=== PATIENT | female | born 1960 | race Caucasian/White ===

== ENCOUNTER 2022-09-09 09:00 | Outpatient (OUT) | payer OTHER, SELFPAY ==
[2022-09-09 09:15] LABS: Basophils Percent Auto 0.7 % (0.2-2.0); Eosinophils Absolute Auto 0.1 10^3/uL (0.0-0.7); Eosinophils Percent Auto 2.5 % (0.9-7.0); Hematocrit 38.3 % (36.0-48.0); Hemoglobin 12.9 g/dL (12.0-16.0); Immature Granulocytes Abs Auto 0.01 10^3/uL (0.00-0.03); Immature Granulocytes Pct Auto 0.2 % (0.0-0.5); Lymphocytes Absolute Auto 1.6 10^3/uL (1.2-3.8); Lymphocytes Percent Auto 36.1 % (20.5-60.0); Mean Corpuscular HGB Conc 33.7 g/dL (29.9-35.2); Mean Corpuscular Hemoglobin 31.9 pg (26.7-34.0); Mean Corpuscular Volume 94.6 fL (81.0-99.0); Mean Platelet Volume 9.5 fL (9.5-13.5); Monocytes Absolute Auto 0.3 10^3/uL (0.3-0.8); Monocytes Percent Auto 7.6 % (1.7-12.0); Neutrophils Absolute Auto 2.3 10^3/uL (1.4-6.5); Neutrophils Percent Auto 52.9 % (43.0-75.0); Platelet Count 287 10^3/uL (150-450); Red Blood Count 4.05 10^6/uL (4.20-5.40); White Blood Count 4.4 10^3/uL (4.0-11.0)
[2022-09-09 23:44] LABS: Alanine Aminotransferase 33 U/L (14-59); Albumin Globulin Ratio 1.3; Albumin Level 3.8 g/dL (3.4-5.0); Alkaline Phosphatase 59 U/L (46-116); Anion Gap 13.5; Aspartate Amino Transferase 14 U/L (15-37); BUN Creatinine Ratio 24.7; Bilirubin Total 0.4 mg/dL (0.2-1.0); Calcium 9.3 mg/dL (8.5-10.1); Carbon Dioxide 24.6 mmol/L (21.0-32.0); Chloride 106 mmol/L (98-107); Chol HDL Ratio 3.5; Cholesterol 213 mg/dL (<=200); Estimated GFR (African America >60 (>=60); Estimated GFR (Non-African Ame >60 (>=60); Glucose 101 mg/dL (74-106); HDL Cholesterol 61 mg/dL (40-60); Potassium 4.1 mmol/L (3.5-5.1); Sodium 140 mmol/L (136-145); Thyroid Stimulating Hormone 1.239 uIU/mL (0.358-3.740); Total Protein 6.8 g/dL (6.4-8.2); Triglycerides 107 mg/dL (<=150); VLDL CHOLESTEROL 21.4 mg/dL
== END 2022-09-09 09:01 ==
DX: E78.5 Hyperlipidemia, unspecified (principal); E03.9 Hypothyroidism, unspecified
CPT/HCPCS: 36415; 80053; 80061; 84443; 85025

== ENCOUNTER 2023-01-01 08:15 | Outpatient (OUT) | payer OTHER, SELFPAY ==
[2023-01-01 09:54] LABS: Alanine Aminotransferase 34 U/L (14-59); Albumin Globulin Ratio 1.2; Alkaline Phosphatase 68 U/L (46-116); Anion Gap 10.8; Aspartate Amino Transferase 14 U/L (15-37); BUN Creatinine Ratio 19.8; Bilirubin Total 0.6 mg/dL (0.2-1.0); Calcium 9.1 mg/dL (8.5-10.1); Carbon Dioxide 30.1 mmol/L (21.0-32.0); Chloride 104 mmol/L (98-107); Chol HDL Ratio 2.8; Cholesterol 185 mg/dL (<=200); Estimated GFR (African America >60 (>=60); Estimated GFR (Non-African Ame >60 (>=60); Globulin 3.3 g/dL; Glucose 92 mg/dL (74-106); HDL Cholesterol 66 mg/dL (40-60); Potassium 3.9 mmol/L (3.5-5.1); Sodium 141 mmol/L (136-145); Total Protein 7.3 g/dL (6.4-8.2); Triglycerides 75 mg/dL (<=150)
== END 2023-01-01 08:16 | disposition home or self-care (01) ==
LOC: LAB 08:19
PROVIDERS: PCP Family Medicine; Visit Provider Family Medicine
DX: E78.5 Hyperlipidemia, unspecified (principal)
CPT/HCPCS: 36415; 80053; 80061

== ENCOUNTER 2023-10-18 21:56 | Emergency (ER) | payer OTHER, SELFPAY ==
[2023-10-18] VITALS (11 sets, daily range): BP systolic 139; BP diastolic 94; PULSE 87–117; TEMP 37.2–37.6; O2SAT 95–97; BMI 31.9
--- NOTE | 2023-10-18 22:20 | ED_ITS ---
HPI - SOB/Dyspnea General Chief Complaint: Shortness of Breath/Dyspnea Stated Complaint: sob, covid pos last Time Seen by Provider: 10/18/23 22:06 Mode of arrival: walk-in History of Present Illness HPI Narrative: This 63-year-old female presents for evaluation of a dry cough with shortness of breath and chest tightness as well as nausea and vomiting. She tested positive for COVID-19 recently after attending her brother's . The patient has clinton d COVID in the past and also has been vaccinated. She did not require admission during her last COVID but states it did take a long time to recover from a respiratory perspective. She has been taking Paxlovid starting earlier today. She states she has only had some 7-Up and several saltine crackers over the course of the past several days. She has not had any diarrhea. She denies any maritza abdominal pain. Besides the chest tightness she has pain between her shoulder blades. She attributes this to coughing. She is not a smoker. She does not have a history of asthma. She does has a history of seasonal allergies. She states that today is the first day that her fever has not been 102. She has been taking Tylenol. Related Data Allergies Allergy/AdvReac Type Severity Reaction Status Date / Time No Known Drug Allergies Allergy Verified 10/18/23 22:06 Review of Systems ROS Status of ROS 10 or more systems reviewed and unremark able except as noted in history and below Exam Narrative Exam Narrative: Vital signs and Nursing Notes reviewed: Is febrile with a temperature of 99.7, tachycardic with pulse of 117, blood pressure is elevated 139/94, she is not hypoxic with pulse ox of 97% on room air General: Awake, alert, nontoxic but mildly ill-appearing adult female, she has an episodic dry cough, she is able to speak in complete sentences HEENT: Normocephalic atraumatic Neck: Supple, no meningeal signs, no anterior or posterior cervical lymphadenopathy Chest: Lungs are clear to auscultation with good air entry, there is no wheezing rhonchi or rales appreciated no accessory muscle use, patient is speaking in complete sentences-no chest wall tenderness to palpation, occasional bronchospastic cough CVS: Regular rate and rhythm S1-S2, no murmurs rubs or gallops, pulses are brisk and equal bilaterally, tachycardic at 117 upon arrival ABD: Soft, nondistended, nontender, no rebound guarding or rigidity, bowel lebron nds are normal, no pulsatile masses appreciated Extremities: Moving all extremities, no lower extremity tenderness or swelling noted, negative Homans' sign, pulses are brisk and equal bilaterally Skin: Normal in appearance without rash,pallor, petechiae or purpura Neuro: No focal deficits Constitutional Vital Signs, click to edit/add: Last Vital Signs Temp 98.9 F 10/18/23 23:40 Pulse 88 10/19/23 00:08 Resp 22 H 10/19/23 00:08 BP 135/65 10/19/23 00:10 Pulse Ox 98 10/19/23 00:08 O2 Del Method Room Air 10/18/23 22:45 Course Vital Signs Vital signs: Vital Signs Temperature 99.7 F 10/18/23 22:01 Pulse Rate 117 H 10/18/23 22:01 Respiratory Rate 20 10/18/23 22:01 Blood Pressure 139/94 H 10/18/23 22:01 Pulse Oximetry 97 10/18/23 22:01 Oxygen Delivery Method Room Air 10/18/23 22:01 Temperature 98.9 F 10/18/23 23:40 Pulse Rate 88 10/19/23 00:08 Respiratory Rate 22 H 10/19/23 00:08 Blood Pressure 135/65 10/19/23 00:10 Pulse Oximetry 98 10/19/23 00:08 Oxygen Delivery Method Room Air 10/18/23 22:45 MDM - SOB/Dyspnea MDM Narrative Medical decision making narrative: This 63-year-old female presents for evaluation of COVID-19 related symptoms including chest tightness, dry cough, fever and nausea and vomiting. She and her and a total of 5 family memebers recently contracted COVID-19 after attending her brother's . she states she had 8 episodes of vomiting throughout the day. In the past 24 hours she was only able to keep down a small amount of 7-Up and some saltine crackers. She was noted to be mildly febrile upon arrival. Her lungs are clear she does have an intermittent bronchospastic cough. Her abdomen is soft. She denies any abdominal pain. An EKG was ordered due to her complaint of chest tightness. The EKG is a sinus rhythm at 92 bpm with no acute changes. An IV was established and routine labs were ordered. She has a normal white count and hemoglobin. Electrolytes are normal with mild elevation in her creatinine of 1.03 consistent with some degree of dehydration likely related to her nausea and vomiting. She has a normal troponin and normal D-dimer. 2 view chest x-ray was negative for acute findings. She was medicated emergency department with a liter of normal saline, albuterol MDI, Decadron and Zofran. She was also given a dose of cough medication for the cough. On reevaluation she states she is feeling markedly better and feels comfortable being discharged home. She is not hypoxic. She is tolerating p.o. fluids. She is otherwise well-appearing and healthy. She is currently taking Paxlovid. She will be discharged home with a prescription for Zofran for the nausea vomiting, Tylenol with codeine suspension for the cough, the remainder of the albuterol MDI. I encouraged her to drink plenty of fluids and return to the emergency department as needed for worsening symptoms or any concerns. Lab Data Attestation: I reviewed the patient's lab results. Labs: Lab Results 10/18/23 10/18/23 Range/Units 22:30 22:55 WBC 8.7 (4.0-11.0) 10^3/uL RBC 4.05 L (4.20-5.40) 10^6/uL Hgb 13.1 (12.0-16.0) g/dL Hct 38.7 (36.0-48.0) % MCV 95.6 (81.0-99.0) fL MCH 32.3 (26.7-34.0) pg MCHC 33.9 (29.9-35.2) g/dL RDW 12.3 (11.0-15.0) % Plt Count 266 (150-450) 10^3/uL MPV 10.1 (9.5-13.5) fL Neut % (Auto) 73.3 (43.0-75.0) % Lymph % (Auto) 13.5 L (20.5-60.0) % Webb % (Auto) 10.4 (1.7-12.0) % Eos % (Auto) 2.1 (0.9-7.0) % Baso % (Auto) 0.5 (0.2-2.0) % Neut # (Auto) 6.4 (1.4-6.5) 10^3/uL Lymph # (Auto) 1.2 (1.2-3.8) 10^3/uL Webb # (Auto) 0.9 H (0.3-0.8) 10^3/uL Eos # (Auto) 0.2 (0.0-0.7) 10^3/uL Baso # (Auto) 0.0 (0.0-0.1) 10^3/uL Abs Immat Gran (auto) 0.02 (0.00-0.03) 10^3/uL Imm/Tot Granulo (auto) 0.2 (0.0-0.5) % D-Dimer 0.43 (<=0.59) mg/L FEU Sodium 137 (136-145) mmol/L Potassium 3.7 (3.5-5.1) mmol/L Chloride 103 (98-107) mmol/L Carbon Dioxide 26.0 (21.0-32.0) mmol/L Anion Gap 11.7 BUN 10.0 (7.0-18.0) mg/dL Creatinine 1.03 H (0.55-1.02) mg/dL Est GFR ( Amer) >60 (>=60) Est GFR (Non-Af Amer) 54 L (>=60) BUN/Creatinine Ratio 9.7 Glucose 107 H (74-106) mg/dL Calcium 8.7 (8.5-10.1) mg/dL Total Bilirubin 0.6 (0.2-1.0) mg/dL AST 27 (15-37) U/L ALT 47 (14-59) U/L Alkaline Phosphatase 90 (46-116) U/L Troponin I High Sens 6.4 (4.0-51.3) pg/mL Total Protein 7.1 (6.4-8.2) g/dL Albumin 3.7 (3.4-5.0) g/dL Globulin 3.4 g/dL Albumin/Globulin Ratio 1.1 ECG Data Attestation: I personally reviewed and interpreted this ECG as follows: (Sinus rhythm at 92 bpm, normal axis, normal intervals, no acute ST segment elevation or T wave inversion) Discharge Plan Discharge Stand Alone Forms: Portal Instructions Chief Complaint: Shortness of Breath/Dyspnea Clinical Impression: Upper respiratory tract infection due to COVID-19 virus, Nausea & vomiting Patient Disposition: Home, Self-Care Time of Disposition Decision: 23:58 Condition: Good Print Language: Bulgarian Instructions: Upper Respiratory Infection (ED), Acute Nausea and Vomiting (ED), COVID-19 (Coronavirus Disease 2019) (ED), How to Recover from COVID-19 at Home (ED) Referrals: Sonny Tirado DO [Primary Care Provider] - 1 week Discharge Date/Time: 10/19/23 00:19
--- NOTE | 2023-10-18 22:24 | ECG_ITS ---
The [facility] Test Date: 2023-10-18 Pat Name: GREGORIA STOCKTON Department: Room: - Gender: Female [employer]: : 1960 Requested By: Sonny Tirado Order Number: [id number] Reading MD: JOEL VILLEGAS Measurements Intervals [place] Rate: 92 P: 39 NM: 168 QRS: 51 QRSD: 82 T: 68 QT: 344 QTc: 393 Interpretive Statements 1100 Sinus rhythm Non-Specific T wave inversion in aVL 9110 normal ECG Compared to ECG 05/05/2020 14:45:03 No significant changes Electronically Signed On 10-19-2023 5:26:40 EDT by JOEL VILLEGAS
[2023-10-18] MEDS: GUAIFENESIN 200 MG/DEXTROMETHORPHAN 20 MG 10 ML UNIT DOSE CUP PO (22:39)
[2023-10-18] MEDS: 0.9 % SODIUM CHLORIDE 1,000 ML 1000 ML IV (22:39)
[2023-10-18] MEDS: ONDANSETRON PF 4 MG/2 ML VIAL IV (22:39)
[2023-10-18] MEDS: DEXAMETHASONE SOD PHOS 10 MG/ML VIAL IV (22:39)
[2023-10-18] MEDS: KETOROLAC TROMETHAMINE 30 MG/ML VIAL IVP (22:39)
[2023-10-18 22:42] LABS: Basophils Percent Auto 0.5 % (0.2-2.0); Eosinophils Absolute Auto 0.2 10^3/uL (0.0-0.7); Eosinophils Percent Auto 2.1 % (0.9-7.0); Hematocrit 38.7 % (36.0-48.0); Hemoglobin 13.1 g/dL (12.0-16.0); Immature Granulocytes Abs Auto 0.02 10^3/uL (0.00-0.03); Immature Granulocytes Pct Auto 0.2 % (0.0-0.5); Lymphocytes Absolute Auto 1.2 10^3/uL (1.2-3.8); Lymphocytes Percent Auto 13.5 % (20.5-60.0); Mean Corpuscular HGB Conc 33.9 g/dL (29.9-35.2); Mean Corpuscular Hemoglobin 32.3 pg (26.7-34.0); Mean Corpuscular Volume 95.6 fL (81.0-99.0); Mean Platelet Volume 10.1 fL (9.5-13.5); Monocytes Absolute Auto 0.9 10^3/uL (0.3-0.8); Monocytes Percent Auto 10.4 % (1.7-12.0); Neutrophils Absolute Auto 6.4 10^3/uL (1.4-6.5); Neutrophils Percent Auto 73.3 % (43.0-75.0); Platelet Count 266 10^3/uL (150-450); Red Blood Count 4.05 10^6/uL (4.20-5.40); Red Cell Distribution Width 12.3 % (11.0-15.0); White Blood Count 8.7 10^3/uL (4.0-11.0)
[2023-10-18] MEDS: ALBUTEROL SULFATE 200 PUFF/6.7 GM INHALER IH (22:45)
[2023-10-18 23:08] LABS: D Dimer 0.43 mg/L FEU (<=0.59)
[2023-10-18 23:16] LABS: Alanine Aminotransferase 47 U/L (14-59); Albumin Globulin Ratio 1.1; Albumin Level 3.7 g/dL (3.4-5.0); Alkaline Phosphatase 90 U/L (46-116); Anion Gap 11.7; Aspartate Amino Transferase 27 U/L (15-37); BUN Creatinine Ratio 9.7; Bilirubin Total 0.6 mg/dL (0.2-1.0); Calcium 8.7 mg/dL (8.5-10.1); Chloride 103 mmol/L (98-107); Estimated GFR (African America >60 (>=60); Estimated GFR (Non-African Ame 54 (>=60); Globulin 3.4 g/dL; Glucose 107 mg/dL (74-106); Potassium 3.7 mmol/L (3.5-5.1); Sodium 137 mmol/L (136-145); Total Protein 7.1 g/dL (6.4-8.2); Troponin I High Sensitivity 6.4 pg/mL (4.0-51.3)
--- NOTE | 2023-10-18 23:27 | XR_ITS ---
The [address] [address] Patient Name: GREGORIA STOCKTON MRN: [id number] date: 1960 Sex: F Assigned Patient Location: ER Current Patient Location: Accession/Order Number: [id number] Exam Date: 10/18/2023 23:39 Report Date: 10/19/2023 03:42 At the request of: AIDA MARKER Procedure: XR chest 1V EXAM: XR chest 1V HISTORY: COVID + , SOB COMPARISON: Chest radiographs dated 06/29/2022. TECHNIQUE: One view of the chest was obtained. FINDINGS: The cardiac silhouette is normal in size. The lungs are clear. There is no significant pneumothorax or pleural effusion. No acute osseous abnormality is seen. Left axillary surgical clips are noted. XR/XR chest 1V IMPRESSION: 1. No acute cardiopulmonary abnormality. Electronically authenticated by: Alex MEJIA Date: 10/19/2023 03:42
[2023-10-19] VITALS: PULSE 86; O2SAT 98
[2023-10-19] MEDS: ONDANSETRON 4 MG RAPDIS TABLET SL (00:07)
[2023-10-19 00:08] VITALS: PULSE 88; O2SAT 98
[2023-10-19 00:10] VITALS: BP 135/65
== END 2023-10-19 00:19 | disposition home or self-care (01) ==
PROVIDERS: Emergency Provider Emergency Medicine; PCP Family Medicine
DX: U07.1 COVID-19 (principal); J06.9 Acute upper respiratory infection, unspecified; R11.2 Nausea with vomiting, unspecified
CPT/HCPCS: 36415; 71045; 80053; 84484; 85025; 85378; 93005; 94640; 96361; 96374; 96375; 99285; J1100; J1885; J2405; Q0162

== ENCOUNTER 2023-11-10 12:58 | Outpatient (OUT) | payer OTHER, SELFPAY ==
--- NOTE | 2023-11-10 13:00 | MM_ITS ---
Patient Name: GREGORIA STOCKTON MR#: [id number] : 1960 Exam Date: 11/10/2023 Ordering Doctor: DR Sonny Tirado RADIOLOGY REPORT PROCEDURE: MM TOMOSYNTHESIS SCREENING BI COMPARISON: MG MAMM SCREEN 3D SHAGGY CAD, 01/10/2021. MG MAMM SCREEN SHAGGY W CAD, 02/22/2019. MG MAMM SCREEN SHAGGY W CAD, 08/23/2017. MG MAMM SHAGGY SCRN W CAD DIG, 11/21/2010. INDICATIONS: Screening Calculator Name NCI Breast Cancer Risk Assessment Tool 5 Year Breast Cancer Risk n/a% Lifetime Breast Cancer Risk n/a% Personal Breast Cancer Yes, Breast CA lt Breast Age 37 Personal Ovarian Cancer No Treatments Partial Masectomy and radiation Family Cancers Mother with breast cancer at age 59; Aunt-maternal with breast cancer at age 60; Aunt-maternal with breast cancer at age 60; Aunt-paternal with breast cancer at age 42; Sister with breast cancer at age 45. LOCATION: The [facility] BREAST COMPOSITION: There are scattered areas of fibroglandular density. FINDINGS: DIAGNOSTIC CATEGORY 2--BENIGN FINDING: RIGHT BREAST: No significant suspicious finding. No significant change has occurred. LEFT BREAST: No significant suspicious finding. Stable surgical changes. This exam includes additional mammographic views for implant evaluation and shows no visible implant abnormality. No significant change has occurred. RECOMMENDATIONS: ROUTINE MAMMOGRAM AND CLINICAL EVALUATION IN 12 MONTHS. PLEASE NOTE: A NORMAL MAMMOGRAM DOES NOT EXCLUDE THE POSSIBILITY OF BREAST CANCER. A CLINICALLY SUSPICIOUS PALPABLE LUMP SHOULD BE BIOPSIED. Dictated by: Magdaleno Clifford M.D. on 11/10/2023 at 14:56 Approved by: Magdaleno Clifford M.D. on 11/10/2023 at 14:58
== END 2023-11-10 12:59 | disposition home or self-care (01) ==
LOC: MAMMO 12:58
PROVIDERS: PCP Family Medicine; Visit Provider Family Medicine
DX: Z12.31 Encounter for screening mammogram for malignant neoplasm of breast (principal); Z80.3 Family history of malignant neoplasm of breast
CPT/HCPCS: 77063; 77067

== ENCOUNTER 2023-11-11 09:08 | Outpatient (OUT) | payer OTHER, SELFPAY ==
--- OUTSIDE RECORDS SUMMARY | 2023-11-11 09:13 | XMS_ITS | CCD ---
Author Organization [facility] Inform ion Partnership [facility] Care Team Providers Care Urologist Physician Name Role Phone Sonny Rivas Unavailable Soledad Goins Referring Unavailable Sonny Rivas Attending Sonny Becker Primary Care Unavailable Sonny Rivas Admitting Unavailable CANDIDA, DR SANTAMARIA Primary Care Unavailable CANDIDA, DR SANTAMARIA Attending Unavailable Magdaleno Clifford Consulting Unavailable CANDIDA, DR SANTAMARIA Admitting Unavailable CANDIDA, DR SANTAMARIA Consulting Unavailable McGuinn II, Dr. Renny Moreland Attending Unavailable Renny Goins Referring Unavailable JUAN FRANCISCO CHENEY Attending Unavailable JUAN FRANCISCO CHENEY Referring Unavailable Allergies Allergy Classification Reported Allergen(s) Allergy Type Date of Onset Reaction(s) Facility (19 sources) zolpide Drug Allergy [facility] [employer] Other Medications Current Medications Medication Drug Class(es) Dates Sig (Normalized) Sig (Original) 30 ACTUAT fluticasone furoate 0.2 MG/ACTUAT / umeclidinium 0.0625 MG/ACTUAT / vilanterol 0.025 MG/ACTUAT Dry Powder Inhaler [Trelegy] (6 sources) Start: 06-29-2022 take 1 puff(s) by inhalation once daily Trelegy Ellipta 200-62.5-25 MCG/ACT 1 puff Inhalation Once a day *Samples* Jun, Active amitriptyline hydrochloride 10 mg oral tablet (1 source) Tricyclic Antidepressant Start: 01-07-2023 take 1 tablet by mouth every twenty-four hours Amitriptyline HCl 10 MG 1 tablet at bedtime Orally Once a day for 30 days Jan, Active amoxicillin 875 mg / clavulanate 125 mg oral tablet (9 sources) Penicillin-class Antibacterial Start: 03-24-2023 take 1 tablet by mouth every twelve hours Amoxicillin-Pot Clavulanate 875-125 MG 1 tablet Orally every 12 hrs Jun, Active Start: 12-15-2021 take 1 tablet by arie th every twelve hours Amoxicillin-Pot Clavulanate 875-125 MG 1 tablet Orally every 12 hrs for 10 day(s) Dec, Active azithromycin 250 mg oral tablet (2 sources) Macrolide Antimicrobial Start: 06-16-2022 Zithromax Z-Jean Marie 250 MG as directed Orally as directed Jun, Active benzonatate 200 mg oral capsule (6 sources) Non-narcotic Antitussive Start: 06-29-2022 take 1 capsule by mouth every eight hours Benzonatate 200 MG 1 capsule Orally Three times a day Jun, Active cholestyramine resin 4000 mg powder for oral suspension (1 source) Bile Acid Sequestrant Start: 01-07-2023 take 1 dose by mouth once daily Cholestyramine 4 GM 1 packet mixed with water or non-carbonated drink Orally Once a day for 30 days Jan, Active ciprofloxacin 500 mg oral tablet (4 sources) Quinolone Antimicrobial Start: 10-28-2021 take 1 tablet by mouth every twelve hours Cipro 500 MG 1 tablet Orally every 12 hrs for 10 day(s) Oct, Active citalopram 20 mg oral tablet (19 sources) Serotonin Reuptake Inhibitor Start: 07-16-2016 take 1 tablet by mouth every twenty-four hours CeleXA 20 mg 1 tablet Orally Once a day for 90 days Jul, Active fluticasone (19 sources) Corticosteroid Start: 07-16-2014 FLONASE 50 mcg 1-2 sprays each NOSTRIL as directed PRN Jul, Active ibuprofen 800 mg oral tablet (15 sources) Nonsteroidal Anti-inflammatory Drug take 1 tablet by mouth three times daily at mealtime as needed Ibuprofen 800 MG 1 tablet with food or milk as needed Orally Three times a day for 90 days Active levothyroxine sodium 0.05 mg oral tablet (19 sources) l-Thyroxine Start: 07-07-2016 Levothyroxine Sodium 50 MCG 1 tablet every morning on an empty stomach Orally Once a day for 90 days Jul, Active loratadine 10 mg oral tablet (12 sources) take 1 tablet by mouth every twenty-four hours Claritin 10 MG 1 tablet Orally Once a day Active LORazepam 0.5 mg oral tablet (12 sources) Benzodiazepine Start: 08-04-2022 take 1 tablet by mouth every twenty-four hours Ativan 0.5 MG 1 tablet at bedtime as needed Orally Once a day August, Active Start: 07-02-2022 take 1 tablet by arie th every twenty-four hours Ativan 0.5 MG 1 tablet at bedtime as needed Orally Once a day Jun, Active Start: 04-02-2022 take 1 tablet by arie th every twenty-four hours Ativan 0.5 MG 1 tablet at bedtime as needed Orally Once a day Mar, Active methylPREDNISolone 4 mg oral tablet (4 sources) Corticosteroid Start: 07-13-2022 methylPREDNISolone 4 MG as directed Orally as directed Jul, Active olmesartan medoxomil 20 mg oral tablet (12 sources) Angiotensin 2 Receptor Deann Start: 04-02-2022 take 1 tablet by mouth every twenty-fou r hours Olmesartan Medoxomil 20 MG 1 tablet Orally Once a day for 90 days Mar, Active omeprazole 20 mg delayed release oral capsule (12 sources) Proton Pump Inhibitor take 1 capsule by mouth once daily Omeprazole 20 MG 1 capsule 30 minutes before morning meal Orally Once a day OTC Active predniSONE 20 mg oral tablet (2 sources) Start: 06-16-2022 predniSONE 20 MG 1 tablet Orally BID for 5 days then Daily for 5 days Jun, Active rosuvastatin calcium 10 mg oral tablet (3 sources) HMG-CoA Reductase Inhibitor Start: 10-01-2022 take 1 tablet by mouth every twenty-fou r hours Rosuvastatin Calcium 10 MG 1 tablet Orally Once a day Sep, Active simvastatin 20 mg oral tablet (16 sources) HMG-CoA Reductase Inhibitor Start: 07-07-2016 Simvastatin 20 mg 1 tablet every evening Orally Once a day for 90 days Jul, Active traZODone hydrochloride 50 mg oral tablet (2 sources) Serotonin Reuptake Inhibitor Start: 10-01-2022 take 1 tablet by mouth every twenty-fou r hours traZODone HCl 50 MG 1 tablet at bedtime as needed Orally Once a day for 30 days Sep, Active valACYclovir 1000 mg oral tablet (19 sources) Herpesvirus Nucleoside Analog DNA Polymerase Inhibitor, Herpes Simplex Virus Nucleoside Analog DNA Polymerase Inhibitor, Herpes Zoster Virus Nucleoside Analog DNA Polymerase Inhibitor Start: 07-16-2016 take 1 tablet by mouth twice daily as needed Valtrex 1 GM 1 tablet as needed Orally bid prn PRN cold sores Jul, Active Vitamin B 12 500 MCG (19 sources) take 1 tablet by mouth once daily Vitamin B 12 500 MCG 1 tablet Orally Once a day Active Vitamin D 400 UNIT (19 sources) Vitamin D 400 UN IT as directed Orally Active Completed/Discontinued Medications Medication Drug Class(es) Dates Sig (Normalized) Sig (Original) Astelin 137 MCG/SPRAY (10 sources) Start: 11-20-2013 take 1 puff(s) nasal route twice daily as needed Astelin 137 MCG/SPRAY 1 puff in each nostril Nasally Twice a day for 30 day(s) PRN Nov, Not-Taking Start: 11-20-2013 take 1 puff(s) nasal route twice daily as needed Astelin 137 MCG/SPRAY 1 puff in each nostril Nasally Twice a day for 30 day(s) PRN Nov, Active dexlansoprazole 60 mg delayed release oral capsule (10 sources) Proton Pump Inhibitor Start: 05-30-2019 take 1 capsule by mouth every twenty-four hours Dexilant 60 MG 1 capsule Orally Once a day for 90 days May, Not-Taking famotidine 26.6 mg / ibuprofen 800 mg oral tablet (10 sources) Nonsteroidal Anti-inflammatory Drug, Histamine-2 Receptor Antagonist Start: 08-19-2020 take 1 tablet by mouth every eight hours Duexis 800-26.6 MG 1 tablet Orally Three times a day sample provided August, Not-Taking pantoprazole 40 mg delayed release oral tablet (6 sources) Proton Pump Inhibitor Start: 11-04-2021 take 1 tablet by mouth every twenty-four hours Pantoprazole Sodium 40 MG 1 tablet Orally Once a day for 30 day(s) Nov, Not-Taking tiZANidine 4 mg oral tablet (10 sources) Central alpha-2 Adrenergic Agonist Start: 11-24-2019 take 1 tablet by mouth once daily at bedtime tiZANidine HCl 4 MG 1 tablet Orally QHS prn Nov, Not-Taking Triamcinolone (20 sources) Corticosteroid Start: 11-20-2019 Kenalog -40 mg Nov, 1.5 cc Start: 10-18-2017 Kenalog -40 mg Oct, 10 mg Start: 09-14-2017 Kenalog -40 mg Sep, 10 mg Problems Active Problems Problem Classification Problem Date Documented Date Episodic/Chronic Abdominal pain (19 sources) Right flank pain; Translations: [Unspecified abdominal pain] Episodic Anxiety disorders (19 sources) Panic disorder; Translations: [Panic disorder [episodic paroxysmal anxiety]] Chronic Cancer of breast (19 sources) History of malignant neoplasm of breast; Translations: [Personal history of malignant neoplasm of breast] Episodic Chronic obstructive pulmonary disease and bronchiectasis (19 sources) Bronchitis; Translations: [Bronchitis, not specified as acute or chronic] Episodic Diabetes mellitus without complication (19 sources) Hyperglycemia; Translations: [Hyperglycemia, unspecified] Episodic Disorders of lipid metabolism (20 sources) Hyperlipidemia; Translations: [Hyperlipidemia, unspecified] Onset: 1 Resolved: 1 Chronic Diverticulosis and diverticulitis (20 sources) Diverticular disease; Translations: [Diverticulosis of intestine, part unspecified, without perforation or abscess without bleeding] Chronic Esophageal disorders (20 sources) Gastroesophageal reflux disease; Translations: [Gastro-esophageal reflux disease without esophagitis] Onset: 1 Resolved: 2 Chronic Headache; including migraine (9 sources) Headache; Translations: [Headache] Episodic Influenza (19 sources) Influenza due to Influenza B virus; Translations: [Influenza due to other identified influenza virus with other respiratory manifestations] Episodic Mood disorders (20 sources) Depressive disorder; Translations: [Major depressive disorder, single episode, unspecified] Onset: 1 Resolved: 1 Chronic Nonspecific chest pain (2 sources) Chest pain, unspecified; Translations: [Chest pain, unspecified] Onset: 3 Episodic Osteoarthritis (19 sources) Osteoarthritis of left knee joint; Translations: [Unilateral primary osteoarthritis, left knee] Chronic Other bone disease and musculoskeletal deformities (19 sources) Somatic dysfunction of rib; Translations: [Segmental and somatic dysfunction of rib cage] Episodic Other bone disease and musculoskeletal deformities (19 sources) Somatic dysfunction of thoracic region; Translations: [Segmental and somatic dysfunction of thoracic region] Episodic Other bone disease and musculoskeletal deformities (19 sources) Somatic dysfunction of sacral spine; Translations: [Segmental and somatic dysfunction of sacral region] Episodic Other bone disease and musculoskeletal deformities (19 sources) Somatic dysfunction of lumbar region; Translations: [Segmental and somatic dysfunction of lumbar region] Episodic Other circulatory disease (4 sources) Elevated blood-pressure reading, without diagnosis of hypertension; Translations: [Elevated blood-pressure reading, without diagnosis of hypertension] Onset: 3 Episodic Other eye disorders (3 sources) Vitreous degeneration; Translations: [Vitreous degeneration, unspecified eye] Chronic Other infections; including parasitic (19 sources) 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; 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 Other lower respiratory disease (9 sources) Cough; Translations: [Cough, unspecified type] Episodic Other non-traumatic joint disorders (19 sources) Arthralgia of the lower leg; Translations: [Pain in left knee] Episodic Other non-traumatic joint disorders (1 source) Pain in left knee Episodic Other nutritional; endocrine; and metabolic disorders (19 sources) Obesity; Translations: [Obesity, unspecified] Chronic Other nutritional; endocrine; and metabolic disorders (19 sources) Obese class I; Translations: [Body mass index (BMI) 31.0-31.9, adult] Chronic Other nutritional; endocrine; and metabolic disorders (2 sources) Obesity, unspecified; Translations: [Obesity, unspecified] Onset: 3 Chronic Other screening for suspected conditions (not mental disorders or infectious disease) (2 sources) Abnormal electrocardiogram [ECG] [EKG]; Translations: [Abnormal electrocardiogram [ECG] [EKG]] Onset: 3 Episodic Other skin disorders (19 sources) Alopecia; Translations: [Nonscarring hair loss, unspecified] Episodic Other skin disorders (9 sources) Night sweats; Translations: [Generalized hyperhidrosis] Episodic Other upper respiratory disease (19 sources) Seasonal allergy; Translations: [Other seasonal allergic rhinitis] Chronic Other upper respiratory infections (20 sources) Sinusitis; Translations: [Chronic sinusitis, unspecified] Chronic Other upper respiratory infections (20 sources) Acute sinusitis; Translations: [Acute sinusitis, unspecified] Episodic Residual codes; unclassified (19 sources) Sleep disorder; Translations: [Sleep disorder, unspecified] Episodic Residual codes; unclassified (19 sources) Insomnia; Translations: [Insomnia, unspecified] Episodic Residual codes; unclassified (9 sources) Chill; Translations: [Chills (without fever)] Episodic Residual codes; unclassified (1 source) Insomnia, unspecified Episodic Spondylosis; intervertebral disc disorders; other back problems (20 sources) Cervical spondylosis without myelopathy; Translations: [Spondylosis without myelopathy or radiculopathy, cervical region] Chronic Spondylosis; intervertebral disc disorders; other back problems (19 sources) Low back pain; Translations: [Low back pain] Episodic Thyroid disorders (20 sources) Hypothyroidism; Translations: [Hypothyroidism, unspecified] Onset: 1 Resolved: 1 Chronic Unclassified (3 sources) COUGH, UNSPECIFIED; Translations: [COUGH, UNSPECIFIED] Onset: 3 Past or Other Problems Problem Classification Problem Date Documented Da te Episodic/Chronic Complication of device; implant or graft (1 source) Leakage of breast prosthesis and implant, initial encounter Onset: 04-01-2021 Resolved: 04-01-2021 Episodic Immunizations and screening for infectious disease (1 source) Encounter for immunization Onset: 04-01-2021 Resolved: 04-01-2021 Episodic Unclassified (2 sources) Cough R05.9 Unclassified (1 source) COUGH, UNSPECIFIED; Translations: [COUGH, UNSPECIFIED] Onset: 06-29-2022 Results Test Name Value Interpretation Reference Range Facility XR CHEST 2 Von 06-29-2022 XR CHEST 2 V EXAMINATION: XR CHEST 2 V HISTORY: Cough COMPARISON: XR chest 02/08/2021 FINDINGS: LUNGS: No significant pulmonary parenchymal abnormalities. VASCULATURE: No increased pulmonary vasculature. PLEURA: No pneumothorax, effusion, or pleural thickening. CARDIAC: No cardiomegaly or cardiac silhouette abnormality. MEDIASTINUM: No visible mass or adenopathy. BONES: Mechanical fusion of lower cervical spine. OTHER: Negative. IMPRESSION: 1. No acute cardiopulmonary process. Stable chest. Electronically authenticated by: MAGDALENO CLIFFORD Date: 2022-06-29 16:42 Normal [place] COVID + FLU Quick Testingon 06-16-2022 SARS-CoV-2 (COVID-19) RNA DINORA+probe Ql (Unsp spec) Negative [employer] Other COVID + FLU Quick Testing Negative [employer] Other NM michelle perf SPECT rest stron 05-04-2022 NM michelle perf SPECT rest str [facility] Main [place] [id number] Nuclear Medicine Report Signed Patient: Elda Spencer MR#: [id number] : 1960 Acct:[id number] Age/Sex: 62 / F ADM Date: 05/01/22 Loc: EL Room: Type: [facility] CLI Attending Dr: Sonny Rivas DO Copies to: DO Howie Antonio MD, [facility] Ordering Provider: Sonny Rivas DO Date of Service: 05/01/22 NM/NM michelle perf SPECT rest str: CP ORDERED BY: Sonny Rivas DO A 62-year-old patient with chest pain. Resting images were obtained after intravenous administration of 29.7 mCi of Cardiolite given on 05/04/2022, and stress images were obtained after intravenous administration of 6.1 mCi of Cardiolite given at peak exercise on 05/01/2022. Subsequently, gated SPECT MPI was obtained. TOMOGRAPHIC DATA: The study is normal and demonstrated no indication of ischemia or prior myocardial infarction. There is breast attenuation artifact noted. The gated study is normal and demonstrated normal ejection fraction at 62% with normal TID at 0.85. CONCLUSION: 1. Normal exercise Cardiolite SPECT MPI. 2. No tomographic evidence of ischemia or prior myocardial infarction. 3. Breast attenuation artifact is noted. 4. Normal left ventricular volume and wall motion, ejection fraction 62% with normal TID at 0.85. No previous studies are available for comparison. Transcribed By: NTS 05/04/22 1532 Dictated By: Howie Bella MD, [facility] 05/04/22 1442 Signed By: 05/06/22 1325 Normal [facility] ECH echo transthoracicon ECH echo transthoracic [facility] Main [address] [address] Echocardiogram Signed Patient: Elda Spencer MR#: [id number] : 1960 Acct:[id number] Age/Sex: 62 / F ADM Date: 05/01/22 Loc: EL Room: Type: DEP CLI Attending : Sonny Rivas DO Ordering Provider: Sonny Rivas DO Date of Service: 05/01/22 ECH/ECH echo transthoracic: Chest pain, unspecified type;Hyperlipidemia; Elevated blood p Copies to: DO Sheela Antonio MD Weight: 180 lb Performed By: DEE Hill BSA: 1.8 m2 BP: 131/81 mmHg HR: 55 Reason For Study: Chest pain, unspecified type;Hyperlipidemia; Elevated blood p History: HLD, asthma, HTN, breast cancer Interpretation Summary Ejection Fraction = 55-60%. The left ventricular size, thickness and function are normal The left ventricular wall motion is normal. There is mild mitral regurgitation. There is mild tricuspid regurgitation. There is no comparison study available. Procedure/Quality: A two-dimensional transthoracic echocardiogram with color flow and Doppler was performed. The study was technically good in quality. Left Ventricle: The left ventricular size, thickness and function are normal. Ejection Fraction = 55-60%. The left ventricular wall motion is normal. Left Atrium: The left atrium appears normal in size. Right Atrium: The right atrium appears normal in size. Right Ventricle: The right ventricular size, thickness and function are normal. Aortic Valve: The aortic valve is normal in structure and function. No aortic regurgitation is present. Mitral Valve: The mitral valve is normal in structure and function. There is mild mitral regurgitation. Tricuspid Valve: The tricuspid valve is normal in structure and function. There is mild tricuspid regurgitation. Right ventricular systolic pressure is normal. Pulmonic Valve: The pulmonic valve is normal in structure and function. Arteries: The aortic root is normal size. Pericardium/Pleura: No pericardial effusion seen. There is no pleural effusion. IVC/Hepatic Viens: The inferior vena cava is normal in size, with a normal collapsibility index. Measurements with Normals IVSd: 0.91 cm (0.7-1.1 cm)LVIDd: 4.9 cm (3.7-5.4 cm) LVPWd: 1.0 cm (0.7-1.1 cm)LVIDs: 3.3 cm (2.3-3.6 cm) LA dimension: 3.9 cm(2.3-4.0 cm)Ao root diam: 3.0 cm(2.0-3.6 cm) Doppler with Normals RVSP(TR): 27.4 mmHg (18-35mmHg) MV E max ross: 106.0 cm/sec(0.8-1.3m/s) MV A max ross: 91.3 cm/sec (0.0-0.0m/s) MV E/A: 1.2 (<1.5) MMode/2D Measurements Calculations RVDd: 2.9 cm FS: 33.6 % Ao root area: LVOT diam: 2.0 cm TAPSE: 2.6 cm EDV(Teich): 7.3 cm2 LVOT area: 3.0 cm2 RV S Ross: 112.6 ml 12.9 cm/sec ESV(Teich): 42.6 ml EF(Teich): 62.2 % __ LVLd ap4: 7.4 cm SV(MOD-sp4): LAV(MOD-sp4): LA A4 area: 18.2 cm2 EDV(MOD-sp4): 47.4 ml 51.6 ml LA length (vol): 68.9 ml 5.3 cm LVLs ap4: 6.3 cm ESV(MOD-sp4): 21.5 ml EF(MOD-sp4): 68.8 % Doppler Measurements Calculations MV dec time: MV max PG: E/E' lat: 10.9 MV dec slope: 0.27 sec 82.0 mmHg E/E' med: 13.2 393.9 cm/sec2 __ MR max ross: TV max PG: TR max ross: 454.3 cm/sec 22.0 mmHg 236.8 cm/sec MR max PG: TR max P.9 mmHg 22.4 mmHg RAP systole: 5.0 mmHg Transcribed By: CARIN Performed At: 05/01/22 1339 Signed By: Sheela Ovalle MD 05/01/22 1428 Normal [facility] ECH echo transthoracic [facility] [employer] Other ECH echo transthoracic [facility] Main [facility] [employer] Other ECH echo transthoracic [address] [facility] [employer] Other ECH echo transthoracic [place], [place] [id number] [place] [address] [employer] Other ECH echo transthoracic E[facility] [employer] Other ECH echo transthoracic Signed [place] [employer] Other ECH echo transthoracic Patient: Elda Spencer MR#: [id number] [place] [employer] Other ECH echo transthoracic [id number] [place] [employer] Other ECH echo transthoracic : 1960 Acct:[id number] [employer] Other ECH echo transthoracic Age/Sex: 62 / F ADM Date: 05/01/22 [employer] Other ECH echo transthoracic Loc: Room: Type: [facility] [employer] Other ECH echo transthoracic Attending Dr: Sonny Rivas DO [employer] Other ECH echo transthoracic Ordering Provider: Sonny Rivas DO [employer] Other ECH echo transthoracic Date of Service: 05/01/22 [employer] Other ECH echo transthoracic ECH/ECH echo transthoracic: Chest pain, unspecified [employer] Other ECH echo transthoracic type;Hyperlipidemia; Elevated blood p [employer] Other ECH echo transthoracic Copies to: Sonny Rivas DO [employer] Other ECH echo transthoracic Sheela Ovalle MD [employer] Other ECH echo transthoracic Weight: 180 lb Performed By: DEE Hill [employer] Other ECH echo transthoracic BSA: 1.8 m2 BP: 131/81 mmHg [employer] Other ECH echo transthoracic HR: 55 [employer] Other ECH echo transthoracic Reason For Study: Chest pain, unspecified type;Hyperlipidemia; Elevated blood p [employer] Other ECH echo transthoracic History: HLD, asthma, HTN, breast cancer [employer] Other ECH echo transthoracic Interpretation Summary [employer] Other ECH echo transthoracic Ejection Fraction = 55-60%. [employer] Other ECH echo transthoracic The left ventricular size, thickness and function are normal [employer] Other ECH echo transthoracic The left ventricular wall motion is normal. [employer] Other ECH echo transthoracic There is mild mitral regurgitation. [employer] Other ECH echo transthoracic There is mild tricuspid regurgitation. [employer] Other ECH echo transthoracic There is no comparison study available. [employer] Other [facility] echo transthoracic flow and Doppler was performed. The study was technically good in quality. [employer] Other ECH echo transthoracic Left Ventricle: The left ventricular size, thickness and function are [employer] Other ECH echo transthoracic normal. Ejection Fraction = 55-60%. The left ventricular wall motion is [employer] Other ECH echo transthoracic normal. [employer] Other ECH echo transthoracic Left Atrium: The left atrium appears normal in size. [employer] Other ECH echo transthoracic Right Atrium: The right atrium appears normal in size. [employer] Other [facility] echo transthoracic Right Ventricle: The right ventricular size, thickness and function are [employer] Other [facility] echo transthoracic Aortic Valve: The aortic valve is normal in structure and function. No [employer] Other [facility] echo transthoracic aortic regurgitation is present. [employer] Other [facility] echo transthoracic Mitral Valve: The mitral valve is normal in structure and function. There is [employer] Other [facility] echo transthoracic mild mitral regurgitation. [employer] Other [facility] echo transthoracic Tricuspid Valve: The tricuspid valve is normal in structure and function. [employer] Other [facility] echo transthoracic There is mild tricuspid regurgitation. Right ventricular systolic pressure is [employer] Other [facility] echo transthoracic Pulmonic Valve: The pulmonic valve is normal in structure and function. [employer] Other [facility] echo transthoracic Arteries: The aortic root is normal size. [employer] Other [facility] echo transthoracic Pericardium/Pleura: No pericardial effusion seen. There is no pleural [employer] Other [facility] echo transthoracic effusion. [employer] Other [facility] echo transthoracic IVC/Hepatic Viens: The inferior vena cava is normal in size, with a normal [employer] Other [facility] echo transthoracic collapsibility index. [employer] Other [facility] echo transthoracic Measurements with Normals [employer] Other [facility] echo transthoracic IVSd: 0.91 cm (0.7-1.1 cm)LVIDd: 4.9 cm (3.7-5.4 cm) [employer] Other [facility] echo transthoracic LVPWd: 1.0 cm (0.7-1.1 cm)LVIDs: 3.3 cm (2.3-3.6 cm) [facility] Other [facility] echo transthoracic LA dimension: 3.9 cm(2.3-4.0 cm)Ao root diam: 3.0 cm(2.0-3.6 cm) [facility] Other [facility] echo transthoracic Doppler with Normals [facility] Other [facility] echo transthoracic RVSP(TR): 27.4 mmHg (18-35mmHg) [facility] Other [facility] echo transthoracic MV E max ross: 106.0 cm/sec(0.8-1.3m/s) [facility] Other [facility] echo transthoracic MV A max ross: 91.3 cm/sec (0.0-0.0m/s) [facility] Other [facility] echo transthoracic MV E/A: 1.2 (<1.5) [facility] Other [facility] echo transthoracic MMode/2D Measurements Calculations [facility] Other [facility] echo transthoracic RVDd: 2.9 cm FS: 33.6 % Ao root area: LVOT diam: 2.0 cm [facility] Other [facility] echo transthoracic TAPSE: 2.6 cm EDV(Teich): 7.3 cm2 LVOT area: 3.0 cm2 [facility] Other [facility] echo transthoracic RV S Ross: 112.6 ml [facility] Other [facility] echo transthoracic 12.9 cm/sec ESV(Teich): [facility] Other [facility] echo transthoracic 42.6 ml [facility] Other [facility] echo transthoracic EF(Teich): 62.2 % [facility] Other [facility] echo transthoracic __ [facility] Other [facility] echo transthoracic LVLd ap4: 7.4 cm SV(MOD-sp4): LAV(MOD-sp4): LA A4 area: 18.2 cm2 [facility] Other [facility] echo transthoracic EDV(MOD-sp4): 47.4 ml 51.6 ml LA length (vol): [facility] Other [facility] echo transthoracic 68.9 ml 5.3 cm [facility] Other [facility] echo transthoracic LVLs ap4: 6.3 cm [facility] Other [facility] echo transthoracic ESV(MOD-sp4): [facility] Other [facility] echo transthoracic 21.5 ml [facility] Other [facility] echo transthoracic EF(MOD-sp4): 68.8 % [facility] Other [facility] echo transthoracic Doppler Measurements Calculations [facility] Other [facility] echo transthoracic MV dec time: MV max PG: E/E' lat: 10.9 MV dec slope: [facility] Other [facility] echo transthoracic 0.27 sec 82.0 mmHg E/E' med: 13.2 393.9 cm/sec2 [facility] Other [facility] echo transthoracic MR max ross: TV max PG: TR max ross: [facility] Other [facility] echo transthoracic 454.3 cm/sec 22.0 mmHg 236.8 cm/sec [facility] Other [facility] echo transthoracic MR max PG: TR max PG: [facility] Other [facility] echo transthoracic 83.9 mmHg 22.4 mmHg [facility] Other [facility] echo transthoracic RAP systole: [facility] Other [facility] echo transthoracic 5.0 mmHg [facility] Other [facility] echo transthoracic [facility] Other [facility] echo transthoracic [facility] Other [facility] echo transthoracic Transcribed By: SCV [facility] Other [facility] echo transthoracic Performed At: 05/01/22 1339 [facility] Other [facility] echo transthoracic Signed By: Sheela Ovalle MD 05/01/22 1428 [facility] Other STR cardiac stress/cardiolon 05-01-2022 STR cardiac stress/cardiol [facility] [place] [address] Cardiac Stress Test Signed Patient: Elda Spencer MR#: [id number] : 1960 Acct:[id number] Age/Sex: 62 / F ADM Date: 05/01/22 Loc: Room: Type: [facility] Attending Dr: Sonny Rivas DO Copies to: DO Sheela Antonio MD Ordering Provider: Sonny Rivas DO Date of Service: 05/01/22 STR/STR cardiac stress/cardiol: Chest pain, unspecified type;Hyperlipidemia; Elevated blood p REASON FOR THE STUDY: Chest pain. REFERRING PHYSICIAN: Sonny Rivas DO PROCEDURE: The patient underwent Cardiolite exercise stress test with the Pardeep protocol. The patient was able to exercise for a total of 5 minutes 55 seconds, achieving workload of 7 METS. Maximum heart rate was 153 beats per minute. Maximum blood pressure was 182/80. No chest pain was reported. Blood pressure and heart response to exercise was physiologic. Baseline ECG showed normal sinus rhythm. No ST-T changes. Following exercise, nondiagnostic changes were seen. CONCLUSION: 1. Cardiolite exercise stress test with nondiagnostic ST-T changes for ischemia. 2. No provoked chest pain or arrhythmia. 3. Limited to fair exercise tolerance. 4. Appropriate hemodynamic response to exercise. 5. Normal heart rate recovery phase. 6. Myocardial perfusion study will be dictated separately. Transcribed By: MARIELY 05/01/22 1651 Dictated By: Sheela Ovalle MD 05/01/22 1542 Signed By: 05/04/22 1239 [facility] STR cardiac stress/cardiol Cardiac Stress Test [facility] Other STR cardiac stress/cardiol Loc: Room: Type: [facility] Other STR cardiac stress/cardiol Date of Service: 05/01/22 [facility] Other STR cardiac stress/cardiol STR/STR cardiac stress/cardiol: Chest pain, unspecified [facility] Other STR cardiac stress/cardiol REASON FOR THE STUDY: Chest pain. [facility] Other STR cardiac stress/cardiol REFERRING PHYSICIAN: Sonny Rivas DO [facility] Other STR cardiac stress/cardiol patient was able to exercise for a total of 5 minutes 55 seconds, achieving workload of 7 METS. [facility] Other STR cardiac stress/cardiol Maximum heart rate was 153 beats per minute. Maximum blood pressure was 182/80. No chest pain was [facility] Other STR cardiac stress/cardiol reported. Blood pressure and heart response to exercise was physiologic. Baseline ECG showed [facility] Other STR cardiac stress/cardiol normal sinus rhythm. No ST-T changes. Following exercise, nondiagnostic changes were seen. [facility] Other STR cardiac stress/cardiol CONCLUSION: [facility] Other STR cardiac stress/cardiol 1. Cardiolite exercise stress test with nondiagnostic ST-T changes for ischemia. [facility] Other STR cardiac stress/cardiol 2. No provoked chest pain or arrhythmia. [facility] Other STR cardiac stress/cardiol 3. Limited to fair exercise tolerance. [facility] Other STR cardiac stress/cardiol 4. Appropriate hemodynamic response to exercise. [facility] Other STR cardiac stress/cardiol 5. Normal heart rate recovery phase. [facility] Other STR cardiac stress/cardiol 6. Myocardial perfusion study will be dictated separately. [facility] Other STR cardiac stress/cardiol Transcribed By: MARIELY 05/01/22 1651 [facility] Other STR cardiac stress/cardiol Dictated By: Sheela Ovalle MD 05/01/22 1542 [facility] Other STR cardiac stress/cardiol Signed By: [facility] Other STR cardiac stress/cardiol 05/04/22 1239 [facility] Other Vital Signs Date Time Vital Sign Value Performing Clinician Facility 01-07-2023 15:30-0400 Body height 160.02 cm Sonny Rivas Other [facility] Other 01-07-2023 15:30-0400 Body mass index (BMI) [Ratio] 33.83 kg/m2 Sonny Rivas Other [facility] Other 01-07-2023 15:30-0400 Body weight 86.64 kg Sonny Rivas Other [facility] Other 01-07-2023 15:30-0400 Diastolic blood pressure 70 mm[Hg] Sonny Rivas Other [facility] Other 01-07-2023 15:30-0400 Respiratory rate 16 /min Sonnyjami Rivas Other [facility] Other 01-07-2023 15:30-0400 SaO2% (BldA) [Mass fraction] 94 % Sonnyjami Dacostarupal Other [facility] Other 01-07-2023 15:30-0400 Systolic blood pressure 134 mm[Hg] Sonny Rivas Other [facility] Other 04-02-2022 15:15-0500 Body height 160.02 cm Sonny Dacostarupal Other [facility] Other 04-02-2022 15:15-0500 Body mass index (BMI) [Ratio] 34.01 kg/m2 Sonnyjami Dacostarupal Other [facility] Other 04-02-2022 15:15-0500 Body weight 87.09 kg Sonny Rivas Other [facility] Other 04-02-2022 15:15-0500 Diastolic blood pressure 80 mm[Hg] Sonny Praneethrupal Other [facility] Other 04-02-2022 15:15-0500 Respiratory rate 16 /min Sonny Candida Other [facility] Other 04-02-2022 15:15-0500 SaO2% (BldA) [Mass fraction] 98 % Sonny Rivas Other [facility] Other 04-02-2022 15:15-0500 Systolic blood pressure 142 mm[Hg] Sonny Rivas Other [facility] Other 04-01-2021 15:45-0500 Body height 160.02 cm Sonny Rivas Other [facility] Other 04-01-2021 15:45-0500 Body mass index (BMI) [Ratio] 33.65 kg/m2 Sonny Rivas Other [facility] Other 04-01-2021 15:45-0500 Body weight 86.18 kg Sonny Rivas Other [facility] Other 04-01-2021 15:45-0500 Diastolic blood pressure 90 mm[Hg] Sonny Rivas Other [facility] Other 04-01-2021 15:45-0500 Respiratory rate 16 /min Sonny Rivas Other [facility] Other 04-01-2021 15:45-0500 SaO2% (BldA) [Mass fraction] 98 % Sonny Rivas Other [facility] Other 04-01-2021 15:45-0500 Systolic blood pressure 140 mm[Hg] Sonny Rivas Other [facility] Other Encounters Encounter Date Encounter Type Care Provider Facility Start: 09-16-2023 End: 09-16-2023 ambulatory JUAN FRANCISCO CHENEY Not Available Start: 01-07-2023 End: 01-07-2023 ambulatory Sonny Rivas Other [facility] Other Start: 01-07-2023 Office outpatient vi sit 15 minutes Sonny Rivas [facility] Start: 12-31-2022 End: 12-31-2022 ambulatory Sonny Rivas Other [facility] Other Start: 12-31-2022 Telephone encounter Sonny Rivas [facility] Start: 11-26-2022 End: 11-26-2022 ambulatory Sonny Rivas Other [facility] Other Start: 11-26-2022 Telephone encounter Sonny Rivas [facility] Start: 09-07-2022 End: 09-07-2022 ambulatory Sonny Rivas Other [facility] Other Start: 09-07-2022 Telephone encounter Sonny Rivas [facility] Start: 08-04-2022 End: 08-04-2022 ambulatory Sonny Rivas Other [facility] Other Start: 08-04-2022 Telephone encounter Sonny Rivas [facility] Start: 07-22-2022 End: 07-22-2022 ambulatory Sonny Rivas Other [facility] Other Start: 07-22-2022 Telephone encounter Sonny Rivas [facility] Start: 07-13-2022 End: 07-13-2022 ambulatory Sonny Rivas Other [facility] Other Start: 07-13-2022 Telephone encounter Sonny Rivas [facility] Start: 07-02-2022 End: 07-02-2022 ambulatory Sonny Rivas Other [facility] Other Start: 07-02-2022 Telephone encounter Sonny Rivas [facility] Start: 06-29-2022 End: 06-30-[address] SONNY RIVAS [place] [facility] Other Start: 06-29-2022 Telephone encounter Sonny Rivas [facility] Start: 06-16-2022 End: 06-16-2022 ambulatory Sonnyjami Rivas Other [facility] Other Start: 06-16-2022 Nursing evaluation o f patient and report Sonnyjami Rivas [facility] Start: 06-16-2022 Telephone encounter Sonny Rivas [facility] Start: 05-01-[address] [facility] Start: 05-01-2022 End: 05-01-2022 ambulatory Soledad Up Buster Facility:[facility] Start: 04-02-2022 End: 04-02-2022 ambulatory Sonny Dacostarupal Other [facility] Other Start: 04-02-2022 Office outpatient vi sit 25 minutes Sonny Rivas [facility] Start: 02-20-2022 End: 02-20-2022 ambulatory Sonny Dacostarupal Other [facility] Other Start: 02-20-2022 Telephone encounter Sonny Rivas [facility] Start: 12-15-2021 End: 12-15-2021 ambulatory Sonnyjami Rivas Other [facility] Other Start: 12-15-2021 Telephone encounter Sonny Rivas [facility] Start: 10-31-2021 End: 10-31-2021 ambulatory Sonnyjami Rivas Other [facility] Other Start: 10-31-2021 Telephone encounter Sonnyjami Rivas [facility] Start: 10-28-2021 End: 10-28-2021 ambulatory Sonnyjami Rivas Other [facility] Other Start: 10-28-2021 Telephone encounter Sonnyjami Rivas [facility] Start: 05-06-2021 End: 05-06-2021 ambulatory Sonnyjami Rivas Other [facility] Other Start: 05-06-2021 Telephone encounter Snony Candida [facility] Start: 04-28-2021 End: 04-28-2021 ambulatory Sonny Praneethrupal Other [facility] Other Start: 04-28-2021 Telephone encounter Sonny Rivas [facility] Start: 04-01-2021 End: 04-01-2021 ambulatory Sonny Praneethrupal Other [facility] Other Start: 04-01-2021 Office outpatient vi sit 25 minutes Sonny Rivas [facility] Immunizations Immunization Date Immunization Notes Care Provider Fa cili 04-01-2021 influenza, injectable, quadrivalent, contains preservative Sonny Candida Other [facility] Other 07-02-2020 COVID-19 Vaccine Pfizer - Documentation Purposes Only Sonny Rivas Other [facility] Other 06-10-2020 COVID-19 Vaccine Pfizer - Documentation Purposes Only Sonny Praneethrupal Other [facility] Other 01-26-2020 influenza, seasonal, injectable Sonnyjami Rivas Other [facility] Other 03-06-2019 influenza, seasonal, injectable Sonny Praneethrupal Other [facility] Other NEGATED: Highlighted row has not occurred!07-26-2018 influenza, seasonal, injectable Patient Objection Sonny Rivas Other [facility] Other Payers Date Payer Category Payer Self-pay 2021 Unknown [id number] 1961 Unknown [id number] 2.1 [id number] 1960 Unknown [id number] 2.16.84 [id number] 1960 Unknown [id number] 2.16. [id number] 1960 Unknown [id number] 2.16. [id number] 1960 Unknown [id number] 2.16.84 [id number] Unknown [id number] 2.16.8 [id number] Social History Date Type Detail Facility Unknown if ever smoked [facility] Other Sex Assigned At Sex Assigned At Bir th [facility] Other Clinical Notes 12-04-2012 to 01-07-2023 Note Date & Type Note Facility 01-07-2023 Evaluation note Encounter Date Diagnosis Assessment Notes Jan, Hyperlipidemia (ICD-10 - E78.5) Blood work reviewed with the patient. Cholesterol levels appear to have responded very well with switching from simvastatin to crestor with her LDL decreasing and HDL increasing. She has not experienced any negative effects with the Crestor therefore she is to continue as directed while also monitoring her diet and staying active. Jan, Degenerative arthritis of cervical spine (ICD-10 - M47.812) Refill e-scribed. Jan, Insomnia (ICD-10 - G47.00) Patient has tried and failed multiple sleep aids both OTC and prescription including Lunesta, Trazodone, and Ambien. She stated her quality of sleep is still very poor. All questions, concerns, positive, and negative effects reviewed regarding Amitriptyline and she is in agreement with trying this. Medication e-scribed. Jan, Diverticulosis (ICD-10 - K57.90) The above medication was prescribed. Her last colonoscopy was done by Dr. Sharma who at the time recommended trying Colestid due to her GI upset, looser stools, and reflux s/p cholecystectomy. All questions, concerns, positive, and negative effects reviewed. Medication e-scribed. [facility] Other 08-24-2023 Evaluation note* Encounter Date Diagnosis Assessment Notes Treatment Notes Treatment Clinical Notes Nov, Elevated blood pressure reading (ICD-10 - R03.0) [facility] Other 05-02-2023 Evaluation note* Encounter Date Diagnosis Assessment Notes Treatment Notes Treatment Clinical Notes August, Panic attacks (ICD-10 - F41.0) [facility] Other 04-19-2023 Evaluation note* Encounter Date Diagnosis Assessment Notes Treatment Notes Treatment Clinical Notes Jul, Panic attacks (ICD-10 - F41.0) Jul, Elevated blood pressure reading (ICD-10 - R03.0) [facility] Other 04-10-2023 Evaluation note* Encounter Date Diagnosis Assessment Notes Treatment Notes Treatment Clinical Notes Jul, Cough, unspecified type (ICD-10 - R05.9) [facility] Other 03-30-2023 Evaluation note* Encounter Date Diagnosis Assessment Notes Treatment Notes Treatment Clinical Notes Jun, Panic attacks (ICD-10 - F41.0) [facility] Other 03-14-2023 Evaluation note* Encounter Date Diagnosis Assessment Notes Treatment Notes Treatment Clinical Notes Jun, Cough (ICD-10 - R05.9) [facility] Other 01-27-2023 NoteProcedure/Quality: A two-dimensional transthoracic echocardiogram with [employer] Other 01-27-2023 NotePROCEDURE: The patient underwent Cardiolite exercise stress test with the Pardeep protocol. [employer] Other 01-27-2023 NoteProcedure/Quality: A two-dimensional transthoracic echocardiogram with [employer] Other 01-27-2023 NotePROCEDURE: The patient underwent Cardiolite exercise stress test with the Pardeep protocol. [facility] [facility] Other 12-29-2022 Evaluation note* Encounter Date Diagnosis Assessment Notes Treatment Notes Treatment Clinical Notes Mar, Chest pain, unspecified type (ICD-10 - R07.9) In house EKG did note some changes from prior EKG. Therefore we will order a cardiolite stress test and echo to rule out abnormalities. I advised the patient to go into the ER if the chest pain does get worse. Mar, Hypothyroidism (ICD-10 - E03.9) Refill provided of the above medication. Blood work ordered. Mar, Hyperlipidemia (ICD-10 - E78.5) Refill provided of the above medication. Blood work ordered. Mar, Depression (ICD-10 - F32.9) Refill provided of the above medication. Mar, Left knee pain (ICD-10 - M25.562) Refill provided of the above medication. Mar, Elevated blood pressure reading (ICD-10 - R03.0) The patients blood pressure was slightly elevated upon check in. I suggest we start the patient on the above medication. We will continue to monitor. Mar, Abnormal EKG (ICD-10 - R94.31) In house EKG has changed from last check. Mar, Obesity (ICD-10 - E66.9) Mar, Panic attacks (ICD-1 0 - F41.0) I did provide a prescription of the above medication for the patient to take as needed in the evening time. [facility] Other 11-18-2022 Evaluation note* Encounter Date Diagnosis Assessment Notes Treatment Notes Treatment Clinical Notes Feb, Hyperlipidemia (ICD-10 - E78.5) Feb, Hypothyroidism (ICD-10 - E03.9) Feb, Depression (ICD-10 - F32.9) [facility] Other 07-26-2022 Evaluation note* Encounter Date Diagnosis Assessment Notes Treatment Notes Treatment Clinical Notes Oct, GERD (gastroesophageal reflux disease) (ICD-10 - K21.9) [facility] Other 12-28-2021 Evaluation note* Encounter Date Diagnosis Assessment Notes Treatment Notes Treatment Clinical Notes Mar, Hyperlipidemia (ICD-10 - E78.5) Reviewed lab work with patient, cholesterol is improved.. Patient is to continue on the above medication. Encouraged to monitor diet and exercise as tolerated. Mar, Hypothyroidism (ICD-10 - E03.9) Reviewed lab work with patient, TSH is WNL. Patient is to continue on the above medication. Mar, GERD (gastroesophageal reflux disease) (ICD-10 - K21.9) Patient is to continue on the above medication as this has decreased her GERD symptoms significantly. Mar, Depression (ICD-10 - F32.9) Patients depression is stable on the Celexa. Patient is to continue on the above. Mar, Needs flu shot (ICD-10 - Z23) Administered today. Mar, Leakage of breast implant, initial encounter (ICD-10 - T85.43XA) Patient has noticed a change in breast size/shape around Thanksgiving. Implants are saline.Prior surgeon has since left the area. I did suggest Dr. Godfrey and she is agreeable to a referral. [facility] Other 09-01-2013 History general Narrative - Reported* Type Description Date Medical History colonoscopy - negative Medical History 12/2012 Mammogram/Pel arlet/Pap exam - follows with Medical History Actinic keratoses on Nose (frozen by 07-23-14) Medical History EKG 08/2015 Medical History 06/2015 upper GI Medical History 2015 mammogram Medical History Bone Density Scan 09/18/16 Medical History 04/2020 Covid (+) Surgical History Left Mastectomy/ Breast Implant Surgical History Cholecystectomy . Surgical History Right Carpal Tunnel Release Surgical History Deviated Septum Repair Surgical History Breast Lumpectomy Hospitalization History Mastectomy Hospitalization History Cholecystectomy Hospitalization History Childbirth 1975 [facility] Other 09-01-2013 History general Narrative - Reported* Type Description Date Medical History colonoscopy - negative Medical History 12/2012 Mammogram/Pel arlet/Pap exam - follows with Medical History Actinic keratoses on Nose (frozen by 07-23-14) Medical History EKG 08/2015 Medical History 06/2015 upper GI Medical History 2014 mammogram Medical History Bone Density Scan 09/18/16 Medical History 04/2020 Covid (+) Medical History Right vitreous detachement- Pars chauer Surgical History Left Mastectomy/ Breast Implant Surgical History Cholecystectomy . Surgical History Right Carpal Tunnel Release Surgical History Deviated Septum Repair Surgical History Breast Lumpectomy Hospitalization History Mastectomy Hospitalization History Cholecystectomy Hospitalization History Childbirth 1977 [facility] [employer] Other Evaluation noteNo [facility]No[facility] Other Reason for visit NarrativePlastic Surgery Referral UpdateNort [facility] Other Reason for Referral Reason *FU 04/10 consult and treat Diagnosis 1 Leakage of breast im plant, initial encounter (T85.43XA) Referral Organization [facility] Referring Provider First Name Sonny Referring Provider Last Name Candida Referring Provider Specialty Family Prac faith Referred Organization Unknown Facility Referred Provider Bekah (refer)Celestine Referred Provider Specialty Plastic and Reconstructive Surgery Referral Priority Routine General Notes [facility] Clare[facility]ila 021 07:35:16 AM >Received today and waiting for office notes to be locked [facility] 04/02/2021 08:36:30 AM >Referral was fax Summary Purpose Family History No Family History Records FoundNo Family History Records FoundNo Family History Records FoundNo Family History Records Found Advance Directives No Advanced Directives Records FoundNo Advanced Directives Records FoundNo Advanced Directives Records FoundNo Advanced Directives Records Found Additional Source Comments REASON FOR VISIT (unrecogniz ed section and content) review labsClinicalClinical Acute MedicinePAClinical Acute IllnessRefillsneck pain & chest painClinical Acute IllnessWHITE BARBARAROBERT ATKA; SYMPTOMS STARTED LAST : (NEG AT-HOME COVID TEST) SOB, BAD COUGH, HOARSE, SINUS PRESSURE/CONGESTIONNo InformationRefillsclinicalrefillRefillsClinicalRefillsClinicalreview labs- hyperlipidemia management INFORMATION SOURCE (unrecogn ized section and content) DATE CREATED AUTHOR 05/09/2022 [facility] DATE CREATED AUTHOR AUTHOR'S ORGANIZ ATION 07/08/2022 [facility] DATE CREATED AUTHOR AUTHOR'S ORGANIZ ATION 08/01/2022 [facility] DATE CREATED AUTHOR AUTHOR'S ZENOBIA ATION 09/18/2023 [facility] FOR RECORDS PERTAINING TO PATIENTS WHO ARE OR HAVE BEEN ENROLLED IN A CHEMICAL DEPENDENCY/SUBSTANCEABUSE PROGRAM, SOME INFORMATION MAY BE OMITTED. This clinical summary was aggregated from multiple sources. Caution should be exercised in using it in the provision of clinical care. This summary normalizes information from multiple sources, and as a consequence, information in this document may materially change the coding, format and clinical context of patient data. In addition, data may be omitted in some cases. CLINICAL DECISIONS SHOULD BE BASED ON THE PRIMARY CLINICAL RECORDS. [facility] [employer] [facility]. provides no warranty or guarantee of the accuracy or completeness of information in this document.
[2023-11-11 09:33] LABS: Basophils Percent Auto 0.8 % (0.2-2.0); Eosinophils Absolute Auto 0.1 10^3/uL (0.0-0.7); Eosinophils Percent Auto 2.3 % (0.9-7.0); Hematocrit 36.5 % (36.0-48.0); Hemoglobin 12.5 g/dL (12.0-16.0); Immature Granulocytes Abs Auto 0.02 10^3/uL (0.00-0.03); Immature Granulocytes Pct Auto 0.4 % (0.0-0.5); Lymphocytes Absolute Auto 1.7 10^3/uL (1.2-3.8); Lymphocytes Percent Auto 32.8 % (20.5-60.0); Mean Corpuscular HGB Conc 34.2 g/dL (29.9-35.2); Mean Corpuscular Hemoglobin 32.7 pg (26.7-34.0); Mean Corpuscular Volume 95.5 fL (81.0-99.0); Mean Platelet Volume 9.3 fL (9.5-13.5); Monocytes Absolute Auto 0.4 10^3/uL (0.3-0.8); Neutrophils Absolute Auto 2.9 10^3/uL (1.4-6.5); Neutrophils Percent Auto 55.7 % (43.0-75.0); Platelet Count 320 10^3/uL (150-450); Red Blood Count 3.82 10^6/uL (4.20-5.40); Red Cell Distribution Width 12.6 % (11.0-15.0); White Blood Count 5.2 10^3/uL (4.0-11.0)
[2023-11-11 11:00] LABS: Alanine Aminotransferase 31 U/L (14-59); Albumin Globulin Ratio 1.2; Albumin Level 3.8 g/dL (3.4-5.0); Alkaline Phosphatase 72 U/L (46-116); Anion Gap 12.6; Aspartate Amino Transferase 13 U/L (15-37); BUN Creatinine Ratio 23.3; Bilirubin Total 0.6 mg/dL (0.2-1.0); Calcium 9.2 mg/dL (8.5-10.1); Carbon Dioxide 26.3 mmol/L (21.0-32.0); Chloride 104 mmol/L (98-107); Chol HDL Ratio 2.6; Cholesterol 177 mg/dL (<=200); Estimated GFR (African America >60 (>=60); Estimated GFR (Non-African Ame >60 (>=60); Globulin 3.2 g/dL; Glucose 98 mg/dL (74-106); HDL Cholesterol 67 mg/dL (40-60); Potassium 3.9 mmol/L (3.5-5.1); Sodium 139 mmol/L (136-145); Triglycerides 80 mg/dL (<=150)
[2023-11-11 11:15] LABS: Free T4 1.03 ng/dL (0.76-1.46)
[2023-11-11 11:44] LABS: Estimated Average Glucose 103 mg/dL; Glycohemoglobin A1C 5.2 % (4.5-6.2)
== END 2023-11-11 09:09 | disposition home or self-care (01) ==
LOC: LAB 09:10
PROVIDERS: PCP Family Medicine; Visit Provider Family Medicine
DX: E55.9 Vitamin D deficiency, unspecified (principal); E03.9 Hypothyroidism, unspecified; E78.5 Hyperlipidemia, unspecified; R73.9 Hyperglycemia, unspecified
CPT/HCPCS: 36415; 80053; 80061; 82306; 83036; 84439; 84443; 85025

== ENCOUNTER 2024-02-09 13:14 | Outpatient (OUT) | payer OTHER, MEDICARE, SELFPAY ==
--- NOTE | 2024-02-09 | XR_ITS ---
The [address] [address] Patient Name: GREGORIA STOCKTON MRN: [id number] date: 1960 Sex: F Assigned Patient Location: [facility] Current Patient Location: [facility] Accession/Order Number: [id number] Exam Date: 02/09/2024 13:36 Report Date: 02/09/2024 14:10 At the request of: ROSALIO RIVAS Procedure: XR hip BI w PEL 1V PROCEDURE: XR hip BI w PEL 1V COMPARISON: None. HISTORY: Bilateral Hip Pain FINDINGS: BONES:No fracture, acute abnormality, or significant arthropathy. SOFT TISSUES:Negative. No visible soft tissue swelling. EFFUSION:None visible. OTHER: Negative. XR/XR hip BI w PEL 1V IMPRESSION: No acute radiographic abnormality Electronically authenticated by: JAIRON BAUMAN Date: 02/09/2024 14:10
--- NOTE | 2024-02-09 13:26 | XR_ITS ---
The [place] [id number] Patient Name: GREGORIA STOCKTON MRN: [id number] date: 1960 Sex: F Assigned Patient Location: [facility] Current Patient Location: [facility] Accession/Order Number: [id number] Exam Date: 02/09/2024 13:38 Report Date: 02/09/2024 14:11 At the request of: ROSALIO RIVAS Procedure: XR lumbar spine 6V w bending EXAMINATION: XR lumbar spine 6V w bending, XR sacrum coccyx min 2V HISTORY: Bilateral Hip Pain COMPARISON: No relevant comparison available. FINDINGS: BONES: Mild levocurvature. Normal alignment of the lumbar and sacral spine with no acute fracture or spondylolisthesis. Mild spondylosis. Kxko-di-gpufenju facet osteoarthropathy DISC SPACES: Moderate multilevel disc space narrowing most significant L4-S1 PARASPINOUS: Negative. No paraspinous abnormality is seen. OTHER: Negative. XR/XR lumbar spine 6V w bending IMPRESSION: Mild to moderate degenerative changes Electronically authenticated by: JAIRON BAUMAN Date: 02/09/2024 14:11
--- NOTE | 2024-02-09 13:26 | XR_ITS ---
The [address] [id number] Patient Name: GREGORIA STOCKTON MRN: [id number] date: 1960 Sex: F Assigned Patient Location: [facility] Current Patient Location: [facility] Accession/Order Number: [id number] Exam Date: 02/09/2024 13:36 Report Date: 02/09/2024 14:11 At the request of: ROSALIO RIVAS Procedure: XR sacrum coccyx min 2V EXAMINATION: XR lumbar spine 6V w bending, XR sacrum coccyx min 2V HISTORY: Bilateral Hip Pain COMPARISON: No relevant comparison available. FINDINGS: BONES: Mild levocurvature. Normal alignment of the lumbar and sacral spine with no acute fracture or spondylolisthesis. Mild spondylosis. Gxwh-kc-denaubvp facet osteoarthropathy DISC SPACES: Moderate multilevel disc space narrowing most significant L4-S1 PARASPINOUS: Negative. No paraspinous abnormality is seen. OTHER: Negative. XR/XR sacrum coccyx min 2V IMPRESSION: Mild to moderate degenerative changes Electronically authenticated by: JAIRON BAUMAN Date: 02/09/2024 14:11
--- OUTSIDE RECORDS SUMMARY | 2024-02-09 13:39 | XMS_ITS | CCD ---
Author Organization [facility] Care Team Providers Care Flight Surgeon Name Role Phone Sonny Rivas Unavailable DR SONNY RIVAS Primary Care Unavailable CANDIDA, DR DENNIS Attending Unavailable Magdaleno Clifford Consulting Unavailable DR SONNY RIVAS Admitting Unavailable DR SONNY RIVAS Consulting Unavailable Miguel Angel HDEZ, Dr. Renny Moreland Attending Unavailable Renny Goins Referring Unavailable JUAN FRANCISCO CHENEY Attending Unavailable JUAN FRANCISCO CHENEY Referring Unavailable DO Sonny Rivas Primary Care Provider MD Linette Song Attending Provider Linette Song Attending Unavailable Linette Song Admitting Unavailable Sonny Rivas Primary Care Unavailable Allergies Allergy Classification Reported Allergen(s) Allergy Type Date of Onset Reaction(s) Facility (20 sources) zolpidem Drug Allergy 11-12-2023 [facility] (1 source) zolpidem Drug Allergy 11-12-2023 [facility] Repository Medications Current Medications Medication Drug Class(es) Dates Sig (Normalized) Sig (Original) 30 ACTUAT fluticasone furoate 0.2 MG/ACTUAT / umeclidinium 0.0625 MG/ACTUAT / vilanterol 0.025 MG/ACTUAT Dry Powder Inhaler [Trelegy] (6 sources) Start: 06-29-2022 take 1 puff(s) by inhalation once daily Trelegy Ellipta 200-62.5-25 MCG/ACT 1 puff Inhalation Once a day *Samples* Jun, Active amitriptyline hydrochloride 10 mg oral tablet (3 sources) Tricyclic Antidepressant Start: 06-09-2023 End: 06-10-2023 take 10 mg by mouth once daily at bedtime Amitriptyline Active 10 MG PO Daily at bedtime June 10, 2023 5:17pm Start: 01-07-2023 take 1 tablet by arie every twenty-four hours Amitriptyline HCl 10 MG 1 tablet at bedtime Orally Once a day for 30 days Jan, Active azithromycin 250 mg oral tablet (2 sources) Macrolide Antimicrobial Start: 06-16-2022 Zithromax Z-Jean Marie 250 MG as directed Orally as directed Jun, Active benzonatate 200 mg oral capsule (6 sources) Non-narcotic Antitussive Start: 06-29-2022 take 1 capsule by mouth every eight hours Benzonatate 200 MG 1 capsule Orally Three times a day Jun, Active cholecalciferol 2000 unt disintegrating oral tablet (2 sources) Vitamin D Start: 06-10-2023 take 2000 [IU] by mouth once daily Cholecalciferol (Vitamin D3) Active 2000 UNIT PO Daily June 10, 2023 4:53pm Start: 06-09-2023 End: 06-10-2023 take 10 ug by mouth once daily Cholecalciferol (Vitamin D3) Discontinued 10 MCG PO Daily June 09, 2023 1:00am June 10, 2023 4:59pm ciprofloxacin 500 mg oral tablet (4 sources) Quinolone Antimicrobial Start: 10-28-2021 take 1 tablet by mouth every twelve hours Cipro 500 MG 1 tablet Orally every 12 hrs for 10 day(s) Oct, Active citalopram 20 mg oral tablet (20 sources) Serotonin Reuptake Inhibitor Start: 06-09-2023 End: 06-10-2023 take 20 mg by mouth once daily Citalopram Active 20 MG PO Daily June 10, 2023 5:25pm Start: 07-16-2016 take 1 tablet by arie every twenty-four hours CeleXA 20 mg 1 tablet Orally Once a day for 90 days Jul, Active fluticasone propionate 0.05 mg/actuat metered dose nasal spray (20 sources) Corticosteroid Start: 06-09-2023 take 1 spray(s) nasal route once daily Fluticasone Propionate Active 2 SPRAY INTRANASAL Daily June 09, 2023 1:00am administer into each nostril Start: 07-16-2014 FLONASE 50 mcg 1-2 sprays each NOSTRIL as directed PRN Jul, Active ibuprofen 800 mg oral tablet (17 sources) Nonsteroidal Anti-inflammatory Drug Start: 06-09-2023 End: 06-10-2023 take 800 mg by mouth three times daily Ibuprofen Active 800 MG PO Three times daily June 10, 2023 5:26pm take 1 tablet by arie th three times daily at mealtime as needed Ibuprofen 800 MG 1 tablet with food or milk as needed Orally Three times a day for 90 days Active levothyroxine sodium 0.05 mg oral tablet (20 sources) l-Thyroxine Start: 06-09-2023 End: 06-10-2023 take 50 ug by mouth once daily in the morning Levothyroxine Active 50 MCG PO Every morning June 10, 2023 5:28pm Start: 07-07-2016 Levothyroxine Sodium 50 MCG 1 tablet every morning on an empty stomach Orally Once a day for 90 days Jul, Active loratadine 10 mg oral tablet (13 sources) Start: 06-09-2023 take 1 tablet by mouth once daily Loratadine (Claritin) 10 mg tablet Active 1 TAB PO Daily June 09, 2023 1:00am FreeTextSi tablet Orally Once a day; Note: Source Status: Taking; Provider: Candida Dennis ( ) take 1 tablet by arie th every twenty-four hours Claritin 10 MG 1 tablet Orally Once a day Active methylPREDNISolone 4 mg oral tablet (4 sources) Corticosteroid Start: 07-13-2022 methylPREDNISolone 4 MG as directed Orally as directed Jul, Active olmesartan medoxomil 20 mg oral tablet (14 sources) Angiotensin 2 Receptor Deann Start: 06-09-2023 End: 06-10-2023 take 20 mg by mouth once daily Olmesartan Active 20 MG PO Daily June 10, 2023 5:28pm Start: 04-02-2022 take 1 tablet by arie th every twenty-four hours Olmesartan Medoxomil 20 MG 1 tablet Orally Once a day for 90 days Mar, Active predniSONE 20 mg oral tablet (2 sources) Start: 06-16-2022 predniSONE 20 MG 1 tablet Orally BID for 5 days then Daily for 5 days Jun, Active rosuvastatin calcium 10 mg oral tablet (5 sources) HMG-CoA Reductase Inhibitor Start: 06-09-2023 End: 10-19-2023 take 10 mg by mouth once daily Rosuvastatin Active 10 MG PO Daily October 19, 2023 3:16pm Start: 10-01-2022 take 1 tablet by arie th every twenty-four hours Rosuvastatin Calcium 10 MG 1 tablet Orally Once a day Sep, Active simvastatin 20 mg oral tablet (16 sources) HMG-CoA Reductase Inhibitor Start: 07-07-2016 Simvastatin 20 mg 1 tablet every evening Orally Once a day for 90 days Jul, Active traZODone hydrochloride 50 mg oral tablet (2 sources) Serotonin Reuptake Inhibitor Start: 10-01-2022 take 1 tablet by mouth every twenty-four hours traZODone HCl 50 MG 1 tablet at bedtime as needed Orally Once a day for 30 days Sep, Active valACYclovir 1000 mg oral tablet (20 sources) Herpesvirus Nucleoside Analog DNA Polymerase Inhibitor, Herpes Simplex Virus Nucleoside Analog DNA Polymerase Inhibitor, Herpes Zoster Virus Nucleoside Analog DNA Polymerase Inhibitor Start: 06-10-2023 Valacyclovir (Valtrex) 1 gram tablet Active 1000 MG PO Twice daily 60 June 10, 2023 5:29pm Start: 06-09-2023 End: 06-10-2023 take 1 tablet by mouth twice daily as needed Valacyclovir (Valtrex) 1 gram tablet Discontinued 1 TAB PO Twice daily June 09, 2023 1:00am June 10, 2023 5:35pm FreeTextSi tablet as needed Orally bid prn; Note: Source Status: TakingPRN cold sores; Refills: 1; Provider: Candida Bartlett Start: 07-16-2016 take 1 tablet by arie th twice daily as needed Valtrex 1 GM 1 tablet as needed Orally bid prn PRN cold sores Jul, Active Vitamin B 12 500 MCG (19 sources) take 1 tablet by mouth once daily Vitamin B 12 500 MCG 1 tablet Orally Once a day Active vitamin B12 (1 source) Vitamin B12 Start: 06-09-2023 take 1 tablet by mouth once daily Cyanocobalamin (Vitamin B-12) Active 1 TAB PO Daily June 09, 2023 1:00am FreeTextSi tablet Orally Once a day; Note: Source Status: Taking; Provider: Candida Dennis ( ) Vitamin D 400 UNIT (19 sources) Vitamin D 400 UN IT as directed Orally Active Completed/Discontinued Medications Medication Drug Class(es) Dates Sig (Normalized) Sig (Original) amoxicillin 875 mg / clavulanate 125 mg oral tablet (10 sources) Penicillin-class Antibacterial Start: 10-19-2023 End: 10-29-2023 take 1 tablet by mouth twice daily Amoxicillin-Pot Clavulanate Discontinued 1 TAB PO Twice daily October 19, 2023 12:00am October 29, 2023 8:38am Start: 06-26-2022 take 1 tablet by arie th every twelve hours Amoxicillin-Pot Clavulanate 875-125 MG 1 tablet Orally every 12 hrs Jun, Active Start: 12-15-2021 take 1 tablet by arie th every twelve hours Amoxicillin-Pot Clavulanate 875-125 MG 1 tablet Orally every 12 hrs for 10 day(s) Dec, Active Astelin 137 MCG/SPRAY (10 sources) Start: 11-20-2013 take 1 puff(s) nasal route twice daily as needed Astelin 137 MCG/SPRAY 1 puff in each nostril Nasally Twice a day for 30 day(s) PRN Nov, Not-Taking Start: 11-20-2013 take 1 puff(s) nasal route twice daily as needed Astelin 137 MCG/SPRAY 1 puff in each nostril Nasally Twice a day for 30 day(s) PRN Nov, Active cholestyramine resin 4000 mg powder for oral suspension (3 sources) Bile Acid Sequestrant Start: 06-09-2023 End: 10-29-2023 take 1 dose by mouth once daily Cholestyramine (With Sugar) Discontinued 1 EACH PO Daily June 10, 2023 1:00am October 29, 2023 8:39am 1 packet mixed with water or non-carbonated drink Start: 01-07-2023 take 1 dose by mouth once daily Cholestyramine 4 GM 1 packet mixed with water or non-carbonated drink Orally Once a day for 30 days Jan, Active dexlansoprazole 60 mg delayed release oral [...] times a day sample provided August, Not-Taking LORazepam 0.5 mg oral tablet (13 sources) Benzodiazepine Start: 06-09-2023 End: 06-10-2023 take 1 tablet by mouth once daily at bedtime Lorazepam Discontinued 1 TAB PO Daily at bedtime June 09, 2023 1:00am June 10, 2023 4:58pm FreeTextSi tablet at bedtime as needed Orally Once a day; Note: Source Status: Taking; Refills: 0; Provider: Candida Bartlett Start: 08-04-2022 take 1 tablet by arie th every [...] needed Orally Once a day Mar, Active Nirmatrelvir-Ritonavir (Paxlovid) 300 mg (150 mg x 2)-100 mg tablets,dose pack (1 source) Start: 10-18-2023 End: 10-29-2023 Nirmatrelvir-Ritonavir (Paxlovid) 300 mg (150 mg x 2)-100 mg tablets,dose pack Discontinued 0 PO .COMPLEX October 18, 2023 12:00am October 29, 2023 8:40am take TWO 150 mg tablets of nirmatrelvir with ONE 100 mg tablet of ritonavir twice daily for 5 days PO covid + 10/14/23 GFR>60 omeprazole 20 mg delayed release oral capsule (13 sources) Proton Pump Inhibitor Start: 06-09-2023 End: 06-10-2023 take 1 capsule by mouth once daily Omeprazole Discontinued 20 MG PO Daily June 09, 2023 1:00am June 10, 2023 4:59pm FreeTextSi capsule 30 minutes before morning meal Orally Once a day; Note: Source Status: TakingOTC; Provider: Candida Dennis ( ) take 1 capsule by mouth once kenya ly Omeprazole 20 MG 1 capsule 30 minutes before morning meal Orally Once a day OTC Active pantoprazole 40 mg delayed release oral tablet [...] Translations: [Unspecified abdominal pain] Episodic Anxiety disorders (20 sources) Panic disorder; Translations: [Panic disorder [episodic paroxysmal anxiety]] Chronic Cancer of breast (19 sources) History of malignant neoplasm of breast; Translations: [Personal history of malignant neoplasm of breast] Episodic Chronic obstructive pulmonary disease and bronchiectasis (19 sources) Bronchitis; Translations: [Bronchitis, not specified as acute or chronic] Episodic Diabetes mellitus without complication (20 sources) Hyperglycemia; Translations: [Hyperglycemia, unspecified] 06-10-2023 Episodic Disorders of lipid metabolism (20 sources) Hyperlipidemia; Translations: [Hyperlipidemia, unspecified] Onset: 1 Resolved: 1 Chronic Diverticulosis and diverticulitis (20 sources) Diverticular disease; Translations: [Diverticulosis of intestine, part unspecified, without perforation or abscess without bleeding] Chronic Esophageal disorders (20 sources) Gastroesophageal reflux disease; Translations: [Gastro-esophageal reflux disease without esophagitis] Onset: 1 Resolved: 2 Chronic Essential hypertension (1 source) Hypertensive disorder; Translations: [Essential (primary) hypertension] 06-10-2023 Chronic Headache; including migraine (9 sources) Headache; Translations: [Headache] Episodic Influenza (19 sources) Influenza due to Influenza B virus; Translations: [Influenza due to other identified influenza virus with other respiratory manifestations] Episodic Mood disorders (20 sources) Depressive disorder; Translations: [Major depressive disorder, single episode, unspecified] Onset: 1 Resolved: 1 Chronic Nonspecific chest pain (1 source) Chest pain, unspecified Episodic Nutritional deficiencies (1 source) Vitamin D deficiency; Translations: [Vitamin D deficiency, unspecified] 06-10-2023 Chronic Osteoarthritis (20 sources) Osteoarthritis of left knee joint; Translations: [Unilateral primary osteoarthritis, left knee] 06-09-2023 Chronic Other bone disease and musculoskeletal deformities [...] of lumbar region] Episodic Other circulatory disease (3 sources) Elevated blood-pressure reading, without diagnosis of hypertension Episodic Other eye disorders (3 sources) Vitreous [...] Chronic Other nutritional; endocrine; and metabolic disorders (1 source) Obesity, unspecified Chronic Other screening for suspected conditions (not mental disorders or infectious disease) (2 sources) Abnormal electrocardiogram [ECG] [EKG]; Translations: [Encounter for screening for malignant neoplasm of colon] Onset: 4 Episodic Other skin disorders (19 sources) Alopecia; Translations: [Nonscarring hair loss, unspecified] Episodic Other skin disorders (9 sources) Night sweats; Translations: [Generalized hyperhidrosis] Episodic Other upper respiratory disease (20 sources) Seasonal allergy; Translations: [Other seasonal allergic rhinitis] 06-09-2023 Chronic Other upper respiratory infections (20 sources) Sinusitis; Translations: [Chronic sinusitis, unspecified] Chronic Other upper respiratory infections (20 sources) Acute sinusitis; Translations: [Acute sinusitis, unspecified] Episodic Residual codes; unclassified (19 sources) Sleep disorder; Translations: [Sleep disorder, unspecified] Episodic Residual codes; unclassified (20 sources) Insomnia; Translations: [Insomnia, unspecified] 06-10-2023 Episodic Residual codes; unclassified (9 sources) Chill; [...] COUGH, UNSPECIFIED; Translations: [COUGH, UNSPECIFIED] Onset: 3 Viral infection (1 source) Herpes labialis; Translations: [Herpesviral vesicular dermatitis] 06-10-2023 Episodic Past or Other Problems Problem Classification Problem Date Documented Da te Episodic/Chronic Complication of device; implant or graft (1 source) Leakage of breast prosthesis and implant, initial encounter Onset: 04-01-2021 Resolved: 04-01-2021 Episodic Immunizations and screening for infectious disease (1 source) Encounter for immunization Onset: 04-01-2021 Resolved: 04-01-2021 Episodic Residual codes; unclassified (1 source) Past history of procedure; Translations: [Personal history of other medical treatment] Onset: 04-05-2022 06-09-2023 Episodic Unclassified (2 sources) Cough R05.9 Unclassified (1 source) COUGH, UNSPECIFIED; Translations: [COUGH, UNSPECIFIED] Onset: 06-29-2022 Results Test Name Value Interpretation Reference Range Facility Pathology Request for Lab Co rpon 11-12-2023 Pathology Request for Lab Ricardo Normal [facility] Comment on above: Order Comment: PATHO LOGY GI SPECIMEN Result Comment: See report. Scanned copy available in EMR. PERFORMED BY: [place] [address] PATHOLOGIST HEEL NAILING MACHINE OPERATOR DEYSI IVERSON M.D. Performed By: #### P ATH TO [facility] #### [address] Basophils Auto (Bld) [#/Vol] on 11-11-2023 Basophils (Bld) [#/Vol] 0.0 10 3/uL 0.0-0.1 [facility] Basophils/100 WBC Auto (Bld) on 11-11-2023 Basophils/100 WBC (Bld) 0.8 % 0.2-2.0 [facility] Cholesterol in LDL Calc [Mas s/Vol]on 11-11-2023 Cholesterol in LDL [Mass/Vol] 94.0 mg/dL [facility] Comment on above: <100 mg/dl [id number] 0-129 mg/dl NEAR OR ABOVE [id number] mg/dl BORDERLINE [id number] mg/dl HIGH>190 mg/dl VERY HIGH Cholesterol in VLDL Calc [Ma ss/Vol]on 11-11-2023 Cholesterol in VLDL [Mass/Vol] 16.0 mg/dL [facility] Eosinophils/100 WBC Auto (Bl d)on 11-11-2023 Eosinophils/100 WBC (Bld) 2.3 % 0.9-7.0 [facility] Erythrocyte distribution wid th Auto (RBC) [Ratio]on 11-11-2023 Erythrocyte distribution width (RBC) [Ratio] 12.6 % 11.0-15.0 [facility] Estimated glomerular filtrat ion rate (GFR) non- Americanon 11-11-2023 GFR/1.73 sq M.predicted among non-blacks MDRD (S/P/Bld) [Vol rate/Area] mL/min/{1.73_m2} >=60 [facility] Globulin Calc (S) [Mass/Vol] on 11-11-2023 Globulin (S) [Mass/Vol] 3.2 g/dL [facility] Glucose mean value [Mass/vol ume] in Blood Estimated from glycated hemoglobinon 11-11-2023 Average glucose Estimated from glycated hemoglobin (Bld) [Mass/Vol] 103 mg/dL [facility] Hematocrit Auto (Bld) [Volum e fraction]on 11-11-2023 Hematocrit (Bld) [Volume fraction] 36.5 % 36.0-48.0 [facility] Hemoglobin [Mass/volume] in Bloodon 11-11-2023 Hemoglobin (Bld) [Mass/Vol] 12.5 g/dL 12.0-16.0 [facility] Laboratory - Chemistry and C hemistry - challengeon 11-11-2023 Albumin [Mass/Vol] 3.8 g/dL 3.4-5.0 [facility] ALP [Catalytic activity/Vol] 72 U/L 46-116 [facility] ALT [Catalytic activity/Vol] 31 U/L 14-59 [facility] AST [Catalytic activity/Vol] 13 U/L Low 15-37 [facility] Bilirubin [Mass/Vol] 0.6 mg/dL 0.2-1.0 [facility] Calcium [Mass/Vol] 9.2 mg/dL 8.5-10.1 [facility] Chloride [Moles/Vol] 104 mmol/L 98-107 [facility] Cholesterol [Mass/Vol] 177 mg/dL <=200 [facility] Cholesterol in HDL [Mass/Vol] 67 mg/dL High 40-60 [facility] Comment on above: > or =60 mg/dl - LOW CARDIOVASCULAR RISK<40 mg/dl - HIGH CARDIOVASCULAR RISK CO2 [Moles/Vol] 26.3 mmol/L 21.0-32.0 [facility] Creatinine [Mass/Vol] 0.90 mg/dL 0.55-1.02 [facility] Free T4 [Mass/Vol] 1.03 ng/dL 0.76-1.46 [facility] GFR/1.73 sq M.predicted MDRD (S/P/Bld) [Vol rate/Area] mL/min/{1.73_m2} >=60 [facility] Glucose [Mass/Vol] 98 mg/dL 74-106 [facility] Potassium [Moles/Vol] 3.9 mmol/L 3.5-5.1 [facility] Protein [Mass/Vol] 7.0 g/dL 6.4-8.2 [facility] Sodium [Moles/Vol] 139 mmol/L 136-145 [facility] Triglyceride [Mass/Vol] 80 mg/dL <=150 [facility] TSH Qn 1.530 m[IU]/L 0.358-3.740 [facility] Urea nitrogen [Mass/Vol] 21.0 mg/dL High 7.0-18.0 [facility] Urea nitrogen/Creatinine [Mass ratio] 23.3 mg/mg [facility] Laboratory - Hematology and Cell countson 11-11-2023 HbA1c (Bld) [Mass fraction] 5.2 % 4.5-6.2 [facility] Comment on above: ADA RECOMMENDED LIMI T 4.0 - 6.0ADA THERAPEUTIC TARGET < 7.0ACTION SUGGESTED> 7.0 Immature granulocytes/100 WBC (Bld) 0.4 % 0.0-0.5 [facility] Leukocytes [#/volume] correc kami for nucleated erythrocytes in Blood by Automated counon 11-11-2023 WBC corrected for nucl RBC Auto (Bld) [#/Vol] 5.2 10 3/uL 4.0-11.0 [facility] Lymphocytes Auto (Bld) [#/Vo l]on 11-11-2023 Lymphocytes (Bld) [#/Vol] 1.7 10 3/uL 1.2-3.8 [facility] Lymphocytes/100 WBC Auto (Bl d)on 11-11-2023 Lymphocytes/100 WBC (Bld) 32.8 % 20.5-60.0 [facility] MCH Auto (RBC) [Entitic mass ]on 11-11-2023 MCH (RBC) [Entitic mass] 32.7 pg 26.7-34.0 [facility] MCHC Auto (RBC) [Mass/Vol]on 11-11-2023 MCHC (RBC) [Mass/Vol] 34.2 g/dL 29.9-35.2 [facility] MCV Auto (RBC) [Entitic vol] on 11-11-2023 MCV (RBC) [Entitic vol] 95.5 fL 81.0-99.0 [facility] Monocytes Auto (Bld) [#/Vol] on 11-11-2023 Monocytes (Bld) [#/Vol] 0.4 10 3/uL 0.3-0.8 [facility] Monocytes/100 WBC Auto (Bld) on 11-11-2023 Monocytes/100 WBC (Bld) 8.0 % 1.7-12.0 [facility] Neutrophils Auto (Bld) [#/Vo l]on 11-11-2023 Neutrophils (Bld) [#/Vol] 2.9 10 3/uL 1.4-6.5 [facility] Neutrophils/100 WBC Auto (Bl d)on 11-11-2023 Neutrophils/100 WBC (Bld) 55.7 % 43.0-75.0 [facility] No Panel Informationon 11-10 25-Hydroxy Vitamin D Total 48.7 ng/mL [facility] Comment on above: <20 ng/mL Vit D defi cient20-<30 ng/mL Vit D [id number] ng/mL Vit D sufficient>100 ng/mL Potential Toxicity Eosinophils # (Auto) 0.1 10 3/uL 0.0-0.7 [facility] Immature Granulocyte # (Auto) 0.02 10 3/uL 0.00-0.03 [facility] Platelet mean volume Auto (B ld) [Entitic vol]on 11-11-2023 Platelet mean volume (Bld) [Entitic vol] 9.3 fL Low 9.5-13.5 [facility] Platelets Auto (Bld) [#/Vol] on 11-11-2023 Platelets (Bld) [#/Vol] 320 10 3/uL 150-450 [facility] RBC Auto (Bld) [#/Vol]on RBC (Bld) [#/Vol] 3.82 10 6/uL Low 4.20-5.40 [facility] Serum or plasma albumin/glob ulin mass ratioon 11-11-2023 Albumin/Globulin [Mass ratio] 1.2 {ratio} [facility] Serum or plasma anion gap de terminationon 11-11-2023 Anion gap [Moles/Vol] 12.6 mmol/L [facility] Serum or plasma total choles terol/high density lipoprotein (HDL) cholesterol mass lavelle 11-11-2023 Cholesterol.total/C holesterol in HDL [Mass ratio] 2.6 {ratio} [facility] Comment on above: 3.3 - 4.4 LOW RISK4. 4 - 7.1 AVERAGE RISK7.1 - 11.0 MODERATE RISK>11.0 HIGH RISK Basophils Auto (Bld) [#/Vol] on 10-18-2023 Basophils (Bld) [#/Vol] 0.0 10 3/uL 0.0-0.1 [facility] Basophils/100 WBC Auto (Bld) on 10-18-2023 Basophils/100 WBC (Bld) 0.5 % 0.2-2.0 [facility] Eosinophils/100 WBC Auto (Bl d)on 10-18-2023 Eosinophils/100 WBC (Bld) 2.1 % 0.9-7.0 [facility] Erythrocyte distribution wid th Auto (RBC) [Ratio]on 10-18-2023 Erythrocyte distribution width (RBC) [Ratio] 12.3 % 11.0-15.0 [facility] Estimated glomerular filtrat ion rate (GFR) non- Americanon 10-18-2023 GFR/1.73 sq M.predicted among non-blacks MDRD (S/P/Bld) [Vol rate/Area] 54 mL/min/{1.73_m2} Low >=60 [facility] Fibrin D-dimer [Presence] in Platelet poor plasma by Latex agglutinationon 10-18-2023 Fibrin D-dimer LA Ql (PPP) 0.43 mg/L FEU <=0.59 [facility] Comment on above: Increases in D-Dimer concentration observed withthromboembolic events can be variable due to localization,size, and age of the thrombus. Therefore, a thromboembolicevent cannot be diagnosed with certainty on the basis of thereference range. D-Dimers may also be elevated for a varietyof disorders including advanced age, , coronarydisease, cancer, liver disease, infection, inflammation,hematoma, DIC, trauma, post-surgery, diabetes, thrombolyticor anticoagulant therapy, stress, and generalizedhospitalization. Globulin Calc (S) [Mass/Vol] on 10-18-2023 Globulin (S) [Mass/Vol] 3.4 g/dL [facility] Hematocrit Auto (Bld) [Volum e fraction]on 10-18-2023 Hematocrit (Bld) [Volume fraction] 38.7 % 36.0-48.0 [facility] Hemoglobin [Mass/volume] in Bloodon 10-18-2023 Hemoglobin (Bld) [Mass/Vol] 13.1 g/dL 12.0-16.0 [facility] Laboratory - Chemistry and C hemistry - challengeon 10-18-2023 Albumin [Mass/Vol] 3.7 g/dL 3.4-5.0 [facility] ALP [Catalytic activity/Vol] 90 U/L 46-116 [facility] ALT [Catalytic activity/Vol] 47 U/L 14-59 [facility] AST [Catalytic activity/Vol] 27 U/L 15-37 [facility] Bilirubin [Mass/Vol] 0.6 mg/dL 0.2-1.0 [facility] Calcium [Mass/Vol] 8.7 mg/dL 8.5-10.1 [facility] Chloride [Moles/Vol] 103 mmol/L 98-107 [facility] CO2 [Moles/Vol] 26.0 mmol/L 21.0-32.0 [facility] Creatinine [Mass/Vol] 1.03 mg/dL High 0.55-1.02 [facility] GFR/1.73 sq M.predicted MDRD (S/P/Bld) [Vol rate/Area] mL/min/{1.73_m2} >=60 [facility] Glucose [Mass/Vol] 107 mg/dL High 74-106 [facility] Potassium [Moles/Vol] 3.7 mmol/L 3.5-5.1 [facility] Protein [Mass/Vol] 7.1 g/dL 6.4-8.2 [facility] Sodium [Moles/Vol] 137 mmol/L 136-145 [facility] Urea nitrogen [Mass/Vol] 10.0 mg/dL 7.0-18.0 [facility] Urea nitrogen/Creatinine [Mass ratio] 9.7 mg/mg [facility] Laboratory - Hematology and Cell countson 10-18-2023 Immature granulocytes/100 WBC (Bld) 0.2 % 0.0-0.5 [facility] Leukocytes [#/volume] correc kami for nucleated erythrocytes in Blood by Automated counon 10-18-2023 WBC corrected for nucl RBC Auto (Bld) [#/Vol] 8.7 10 3/uL 4.0-11.0 [facility] Lymphocytes Auto (Bld) [#/Vo l]on 10-18-2023 Lymphocytes (Bld) [#/Vol] 1.2 10 3/uL 1.2-3.8 [facility] Lymphocytes/100 WBC Auto (Bl d)on 10-18-2023 Lymphocytes/100 WBC (Bld) 13.5 % Low 20.5-60.0 [facility] MCH Auto (RBC) [Entitic mass ]on 10-18-2023 MCH (RBC) [Entitic mass] 32.3 pg 26.7-34.0 [facility] MCHC Auto (RBC) [Mass/Vol]on 10-18-2023 MCHC (RBC) [Mass/Vol] 33.9 g/dL 29.9-35.2 [facility] MCV Auto (RBC) [Entitic vol] on 10-18-2023 MCV (RBC) [Entitic vol] 95.6 fL 81.0-99.0 [facility] Monocytes Auto (Bld) [#/Vol] on 10-18-2023 Monocytes (Bld) [#/Vol] 0.9 10 3/uL High 0.3-0.8 [facility] Monocytes/100 WBC Auto (Bld) on 10-18-2023 Monocytes/100 WBC (Bld) 10.4 % 1.7-12.0 [facility] Neutrophils Auto (Bld) [#/Vo l]on 10-18-2023 Neutrophils (Bld) [#/Vol] 6.4 10 3/uL 1.4-6.5 [facility] Neutrophils/100 WBC Auto (Bl d)on 10-18-2023 Neutrophils/100 WBC (Bld) 73.3 % 43.0-75.0 [facility] No Panel Informationon 10-17 Troponin I High Sensitivity 6.4 pg/mL 4.0-51.3 [facility] Comment on above: CUT-OFF POINTS HAVE BEEN ESTABLISHED BASED ON THE FOURTHIVERSAL DEFINITION OF MYOCARDIAL INFARCTION. THE UPPERREFERENCE LIMIT (URL) OF TROPONIN, DEFINED THE 99THPERCENTILE OF cTnI DISTRIBUTION IN A REFERENCE POPULATION,HAS BEEN CONFIRMED THE DECISION THRESHOLD FOR MIDIAGNOSIS.99TH PERCENTILE = 51.4 PG/MLNOTE: HIGH-SENSITIVITY TROPONIN ASSAY IS NOT INTENDED TO BEUSED IN ISOLATION BUT SHOULD BE INTERPRETED IN CONJUNCTIONWITH OTHER DIAGNOSTIC AND CLINICAL INFORMATION. Eosinophils # (Auto) 0.2 10 3/uL 0.0-0.7 [facility] Immature Granulocyte # (Auto) 0.02 10 3/uL 0.00-0.03 [facility] Platelet mean volume Auto (B ld) [Entitic vol]on 10-18-2023 Platelet mean volume (Bld) [Entitic vol] 10.1 fL 9.5-13.5 [facility] Platelets Auto (Bld) [#/Vol] on 10-18-2023 Platelets (Bld) [#/Vol] 266 10 3/uL 150-450 [facility] RBC Auto (Bld) [#/Vol]on RBC (Bld) [#/Vol] 4.05 10 6/uL Low 4.20-5.40 [facility] Serum or plasma albumin/glob ulin mass ratioon 10-18-2023 Albumin/Globulin [Mass ratio] 1.1 {ratio} [facility] Serum or plasma anion gap de terminationon 10-18-2023 Anion gap [Moles/Vol] 11.7 mmol/L [facility] XR CHEST 2 Von 06-29-2022 XR CHEST 2 V EXAMINATION: XR CHES T 2 V HISTORY: Cough COMPARISON: XR chest [...] by: MAGDALENO CLIFFORD Date: 2022-06-29 16:42 Normal [facility] COVID + FLU Quick Testingon 06-16-2022 SARS-CoV-2 (COVID-19) RNA DINORA+probe Ql (Unsp spec) Negative [facility] Other COVID + FLU Quick Testing Negative [facility] Other [facility] echo transthoracicon [facility] echo transthoracic [facility] ([facility]) Other ECH echo tran[facility]horacic [facility] Replaced By [facility] (Former[facility]) Other [facility] echo tran[facility]horacic [address] [facility] [employer] Other [place] [address] [facility] Other [facility] Echocardiogram [facility] Other [facility] Signed [facility] Other [facility] Patient: Elda Spencer MR#: [id number] [facility] Other [facility] [id number] [facility] Other [facility] : 1960 Acct:[id number] [facility] Other [facility] Age/Sex: 62 / F ADM Date: 05/01/22 [facility] Other [facility] Loc: EL Room: Type: REG CLI [facility] Other [facility] Attending Dr: Sonny Rivas DO [facility] [employer] Other [facility] Ordering Provider: Sonny Rivas DO [facility] Other [facility] Date of Service: 05/01/22 [facility] Other [facility] ECH/ECH echo transthoracic: Chest pain, unspecified [facility] Other [facility] type;Hyperlipidemia;Shanel vated blood p [facility] Other [facility]horacic Copies to: Sonny Rivas, [facility] Other [facility] echo tran[facility]horacic Sheela Ovalle MD [facility] (Former[facility]) Other [facility]hor[facility] Weight: 180 lb Performed By: DEE Hill [facility] Other [facility] BSA: 1.8 m2 BP: 131/81 mmHg [facility] Other [facility] HR: 55 [facility] Other [facility]hor[facility] Reason For Study: Chest pain, unspecified type;Hyperlipidemia;Shanel vated blood p [facility] Other [facility]hor[facility] History: HLD, asthma, HTN, breast cancer [facility] Other [facility] Interpretation Summary [facility] ([facility]) Other [facility] echo tran[facility]horacic Ejection Fraction = 55-60%. [facility] ([facility]) Other [facility] echo transthoracic The left ventricular size, thickness and function are normal [facility] Other [facility] echo transthoracic The left ventricular wall motion is normal. [facility] Other [facility] echo tran[facility]horacic There is mild mitral regurgitation. [facility] Other [facility] echo transthoracic There is mild tricuspid regurgitation. [facility] Other [facility] echo transthoracic There is no comparison study available. [facility] Other [facility] echo transthoracic flow and Doppler was performed. The study was technically good in quality. [facility] Other [facility] echo transthoracic Left Ventricle: The left ventricular size, thickness and function are [facility] Other [facility] echo transthoracic normal. Ejection Fraction = 55-60%. The left ventricular wall motion is [facility] Other [facility] echo transthoracic normal. [facility] Other [facility] echo transthoracic Left Atrium: The left atrium appears normal in size. [facility] Other [facility] echo transthoracic Right Atrium: The right atrium appears normal in size. [facility] Other [facility] echo transthoracic Right Ventricle: The right ventricular size, thickness and function are [facility] Other [facility] echo transthoracic Aortic Valve: The aortic valve is normal in structure and function. No [facility] Other [facility] echo transthoracic aortic regurgitation is present. [facility] Other [facility] echo transthoracic Mitral Valve: The mitral valve is normal in structure and function. There is [facility] Other [facility] echo transthoracic mild mitral regurgitation. [facility] Other [facility] echo transthoracic Tricuspid Valve: The tricuspid valve is normal in structure and function. [facility] Other [facility] echo transthoracic There is mild tricuspid regurgitation. Right ventricular systolic pressure is [facility] Other [facility] echo transthoracic Pulmonic Valve: The pulmonic valve is normal in structure and function. [facility] Other [facility] echo transthoracic Arteries: The aortic root is normal size. [facility] Other [facility] echo transthoracic Pericardium/Pleura: No pericardial effusion seen. There is no pleural [facility] Other [facility] echo transthoracic effusion. [facility] Other [facility] echo transthoracic IVC/Hepatic Viens: The inferior vena cava is normal in size, with a normal [facility] Other [facility] echo transthoracic collapsibility index. [facility] ([facility]) Other [facility] echo transthoracic Measurements with Normals [facility] Other [facility] echo transthoracic IVSd: 0.91 cm (0.7-1.1 cm)LVIDd: 4.9 cm (3.7-5.4 cm) [facility] Other [facility] echo transthoracic LVPWd: 1.0 cm (0.7-1.1 cm)LVIDs: 3.3 cm (2.3-3.6 cm) [facility] Other [facility] echo transthoracic LA dimension: 3.9 cm(2.3-4.0 cm)Ao root diam: 3.0 cm(2.0-3.6 cm) [facility] Other [facility] echo transthoracic Doppler with Normals [facility] Other [facility] echo transthoracic RVSP(TR): 27.4 mmHg (18-35mmHg) [facility] Other [facility] echo transthoracic MV E max ross: 106.0 cm/sec(0.8-1.3m/s) [facility] Other [facility] echo transthoracic MV A max ross: 91.3 cm/sec (0.0-0.0m/s) [facility] Other [facility] echo transthoracic MV E/A: 1.2 (<1.5) [facility] Other [facility] echo transthoracic MMode/2D Measurements Calculations [facility] Other [facility] echo transthoracic RVDd: 2.9 cm FS: 33.6 % Ao root area: LVOT diam: 2.0 cm [facility] Other [facility] tran[facility]horacic TAPSE: 2.6 cm EDV(Teich): 7.3 cm2 LVOT area: 3.0 cm2 [facility] Other [facility] tran[facility]horacic RV S Ross: 112.6 ml [facility] Other [facility] tran[facility]horacic 12.9 cm/sec ESV(Teich): [facility] ([facility]) Other [facility] echo transthoracic 42.6 ml [facility] Other [facility] echo transthoracic EF(Teich): 62.2 % [facility] Other [facility] echo transthoracic __ [facility] Other [facility] echo transthoracic LVLd ap4: 7.4 cm SV(MOD-sp4): LAV(MOD-sp4): LA A4 area: 18.2 cm2 [facility] Other [facility] echo transthoracic EDV(MOD-sp4): 47.4 ml 51.6 ml LA length (vol): [facility] Other [facility] tran[facility]horacic 68.9 ml 5.3 cm [facility] Other [facility] echo transthoracic LVLs ap4: 6.3 cm [facility] Other [facility] echo transthoracic ESV(MOD-sp4): [facility] Other [facility] echo transthoracic 21.5 ml [facility] Other [facility] echo transthoracic EF(MOD-sp4): 68.8 % [facility] Other [facility] echo transthoracic Doppler Measurements Calculations [facility] Other [facility] tran[facility]horacic MV dec time: MV max PG: E/E' lat: 10.9 MV dec slope: [facility] Other [facility]horacic 0.27 sec 82.0 mmHg E/E' med: 13.2 393.9 cm/sec2 [facility] Other [facility]hor[facility] MR max ross: TV max PG: TR max ross: [facility] Other [facility] 454.3 cm/sec 22.0 mmHg 236.8 cm/sec [facility] Other [facility] tran[facility]horacic MR max PG: TR max PG: [employer] Other [facility] echo transthoracic 83.9 mmHg 22.4 mmHg [facility] Other [facility] tran[facility]horacic RAP systole: [facility] Other [facility] 5.0 mmHg [facility] Other [facility]acic [facility] Other [facility] tran[facility]horacic [facility] Other [facility] Transcribed By: [facility] Other [facility] Performed At: 05/01/22 1339 [facility] Other [facility]horacic Signed By: Sheela Ovalle MD 05/01/22 [facility] Other STR cardiac stress/cardiolon 05-01-2022 STR cardiac stress/cardiol Cardiac Stress Test [facility] Other STR cardiac stress/cardiol Loc: Room: Type: [facility] Other STR cardiac stress/cardiol Date of Service: 05/01/22 [facility] Other STR cardiac stress/cardiol STR/STR cardiac stress/cardiol: Chest pain, unspecified [facility] Other STR cardiac stress/cardiol REASON FOR THE STUDY: Chest pain. [facility] Other STR cardiac stress/cardiol REFERRING PHYSICIAN: Sonny Rivas, [facility] Other STR cardiac stress/cardiol patient was able to exercise for a total of 5 minutes 55 seconds, achieving workload of 7 METS. [facility] Other STR cardiac stress/cardiol Maximum heart rate was 153 beats per minute. Maximum blood pressure was 182/80. No chest pain was [facility] Other STR cardiac stress/cardiol reported. Blood pressure and heart response to exercise was physiologic. Baseline ECG showed [facility] Other STR cardiac stress/cardiol normal sinus rhythm. No ST-T changes. Following exercise, nondiagnostic changes were seen. [facility] Other STR cardiac stress/cardiol CONCLUSION: [facility] Other STR cardiac stress/cardiol 1. Cardiolite exercise stress test with nondiagnostic ST-T changes for ischemia. [facility] Other STR cardiac stress/cardiol 2. No provoked chest pain or arrhythmia. [facility] Other STR cardiac stress/cardiol 3. Limited to fair exercise tolerance. [facility] Other STR cardiac stress/cardiol 4. Appropriate hemodynamic response to exercise. [facility] Other STR cardiac stress/cardiol 5. Normal heart rate recovery phase. [facility] Other STR cardiac stress/cardiol 6. Myocardial perfusion study will be dictated separately. [facility] Other STR cardiac stress/cardiol Transcribed By: [facility] 05/01/22 1651 [facility] Other STR cardiac stress/cardiol Dictated By: Sheela Ovalle MD 05/01/22 1542 [facility] Other STR cardiac stress/cardiol Signed By: [facility] Other STR cardiac stress/cardiol 05/04/22 1239 [facility] Other Vital Signs Date Time Vital Sign Value Performing Clinician Facility 11-12-2023 09:33-0400 Diastolic blood pressure 55 mm[Hg] DO Sonny Praneeths Work Phone: [facility] 11-12-2023 09:33-0400 Heart rate 67 /min DO Sonny Praneeths Work Phone: [facility] 11-12-2023 09:33-0400 Respiratory rate 16 /min DO Sonny Dacostas Work Phone: [facility] 11-12-2023 09:33-0400 SaO2% (BldA) [Mass fraction] 97 % DO Sonny Praneeths Work Phone: [facility] 11-12-2023 09:33-0400 Systolic blood pressure 110 mm[Hg] DO Sonny Praneeths Work Phone: [facility] 11-12-2023 07:12-0400 Body height 161.29 cm DO Sonnyjami Dacostas Work Phone: [facility] 11-12-2023 07:12-0400 Body weight 83.91 kg DO Sonny Kuns Work Phone: [facility] 01-07-2023 15:30-0400 Body height 160.02 cm Sonny Dacostarupal Other [facility] Other 01-07-2023 15:30-0400 Body mass index (BMI) [Ratio] 33.83 kg/m2 Sonny Praneethrupal Other [facility] Other 01-07-2023 15:30-0400 Body weight 86.64 kg Sonny Rivas Other [facility] Other 01-07-2023 15:30-0400 Diastolic blood pressure 70 mm[Hg] Sonny Candida Other [facility] Other 01-07-2023 15:30-0400 Respiratory rate 16 /min Sonny Candida Other [facility] Other 01-07-2023 15:30-0400 SaO2% (BldA) [Mass fraction] 94 % Sonny Rivas Other [facility] Other 01-07-2023 15:30-0400 Systolic blood pressure 134 mm[Hg] Sonny Rivas Other [facility] Other 04-02-2022 15:15-0500 Body height 160.02 cm Sonny Candida Other [facility] Other 04-02-2022 15:15-0500 Body mass index (BMI) [Ratio] 34.01 kg/m2 Sonny Rivas Other [facility] Other 04-02-2022 15:15-0500 Body weight 87.09 kg Sonny Candida Other [facility] Other 04-02-2022 15:15-0500 Diastolic blood pressure 80 mm[Hg] Sonny Dacostas Other [facility] Other 04-02-2022 15:15-0500 Respiratory rate 16 /min Sonny Rivas Other [facility] Other 04-02-2022 15:15-0500 SaO2% (BldA) [Mass fraction] 98 % Sonny Rivas Other [facility] Other 04-02-2022 15:15-0500 Systolic blood pressure 142 mm[Hg] Sonny Rivas Other [facility] Other 04-01-2021 15:45-0500 Body height 160.02 cm Sonny Rivas Other [facility] Other 04-01-2021 15:45-0500 Body mass index (BMI) [Ratio] 33.65 kg/m2 Sonny Rivas Other [facility] Other 04-01-2021 15:45-0500 Body weight 86.18 kg Sonny Rivas Other [facility] Other 04-01-2021 15:45-0500 Diastolic blood pressure 90 mm[Hg] Sonny Rivas Other [facility] Other 04-01-2021 15:45-0500 Respiratory rate 16 /min Sonny Rivas Other [facility] Other 04-01-2021 15:45-0500 SaO2% (BldA) [Mass fraction] 98 % Sonny Rivas Other [facility] Other 04-01-2021 15:45-0500 Systolic blood pressure 140 mm[Hg] Sonny Rivas Other [facility] Other Encounters Encounter Date Encounter Type Care Provider Facility Start: 11-12-2023 Non-patient / Non-visit DO Sonny Rivas Work Phone: [facility] Gastroenterology Work Phone: Start: 11-12-2023 End: 11-12-2023 Admission to same day surgery center DO Sonny Rivas Work Phone: [facility] Work Phone: Start: 11-12-2023 End: 11-12-2023 ambulatory DO Sonny Rivas Work Phone: [facility] Work Phone: Start: 11-11-2023 Non-patient / Non-visit DO Sonny Rivas Work Phone: [facility] [employer] Work Phone: Start: 10-18-2023 Non-patient / Non-visit DO Sonny Rivas Work Phone: [facility] [place] Work Phone: Start: 09-16-2023 End: 09-16-2023 ambulatory JUAN FRANCISCO Singh ROXANNEI Not Available Start: 01-07-2023 End: 01-07-2023 ambulatory Sonny Rivas Other [facility] Other Start: 01-07-2023 Office outpatient visit 15 minutes Sonny Rivas [facility] [place] Start: 12-31-2022 End: 12-31-2022 ambulatory Sonny Rivas Other [facility] Other Start: 12-31-2022 Telephone encounter Sonny Rivas [facility] [place] Start: 11-26-2022 End: 11-26-2022 ambulatory Sonny Rivas Other [facility] Other Start: 11-26-2022 Telephone encounter Sonny Rivas [facility] [place] Start: 09-07-2022 End: 09-07-2022 ambulatory Sonny Rivas Other [facility] Other Start: 09-07-2022 Telephone encounter Sonny Rivas [facility] [place] Start: 08-04-2022 End: 08-04-2022 ambulatory Sonny Rivas Other [facility] Other Start: 08-04-2022 Telephone encounter Sonny Rivas [facility] [place] Start: 07-22-2022 End: 07-22-2022 ambulatory Sonny Rivas Other [facility] Other Start: 07-22-2022 Telephone encounter Sonny Rivas [facility] Start: 07-13-2022 End: 07-13-2022 ambulatory Sonny Rivas Other [facility] Other Start: 07-13-2022 Telephone encounter Sonny Rivas [facility] Start: 07-02-2022 End: 07-02-2022 ambulatory Sonny Rivas Other [facility] Other Start: 07-02-2022 Telephone encounter Sonny Rivas [facility] Start: 06-29-2022 End: 06-30-[address] SONNY RIVAS [facility] [employer] Other Start: 06-29-2022 Telephone encounter Sonny Rivas [facility] Start: 06-16-2022 End: 06-16-2022 ambulatory Sonny Rivas Other [facility] Other Start: 06-16-2022 Nursing evaluation o f patient and report Sonny Rivas [facility] Start: 06-16-2022 Telephone encounter Sonny Rivas [facility] Start: 05-01-[address] [id number] Start: 04-02-2022 End: 04-02-2022 ambulatory Sonny Rivas Other [facility] Other Start: 04-02-2022 Office outpatient visit 25 minutes Sonnyjami Rivas [facility] [place] Start: 02-20-2022 End: 02-20-2022 ambulatory Sonny Rivas Other [facility] Other Start: 02-20-2022 Telephone encounter Sonnyjami Rivas [facility] [place] Start: 12-15-2021 End: 12-15-2021 ambulatory Sonny Praneeths Other [facility] Other Start: 12-15-2021 Telephone encounter Sonnyjami Rivas [facility] [place] Start: 10-31-2021 End: 10-31-2021 ambulatory Sonny Praneethrupal Other [facility] Other Start: 10-31-2021 Telephone encounter Sonny Rivas [facility] [place] Start: 10-28-2021 End: 10-28-2021 ambulatory Sonnyjami Rivas Other [facility] Other Start: 10-28-2021 Telephone encounter Sonny Rivas [facility] [place] Start: 05-06-2021 End: 05-06-2021 ambulatory Sonnyjami Rivas Other [facility] Other Start: 05-06-2021 Telephone encounter Sonny Rivas [facility] Start: 04-28-2021 End: 04-28-2021 ambulatory Sonny Praneethrupal Other [facility] Other Start: 04-28-2021 Telephone encounter Sonnyjami Dacostas [facility] [place] Start: 04-01-2021 End: 04-01-2021 ambulatory Snony Dacostas Other [facility] Other Start: 04-01-2021 Office outpatient visit 25 minutes Sonny Rivas [facility] [place] Procedures Date Procedure Procedure Detail Performing Clinician Start: 11-12-2023 Screening colonoscopy D O Sonny Rivas Work Phone: Plan of Treatment Date Care Activity Detail Author Start: 11-12-2023 [facility] Patient Education Hemorrhoids (D C) Diverticulosis (DC) Colon Polypectomy (DC) Know your Meds [facility] Work Phone: Immunizations Immunization Date Immunization Notes Care Provider Fa cili 04-01-2021 influenza, injectable, quadrivalent, contains preservative Sonny Rivas Other [facility] Other 04-01-2021 influenza, injectable, quadrivalent, preservative free DO Sonny Rivas Work Phone: [facility] 07-02-2020 COVID-19 Vaccine Pfizer - Documentation Purposes Only Sonny Rivas Other [facility] 06-10-2020 COVID-19 Vaccine Pfizer - Documentation Purposes Only Sonny Rivas Other [facility] 01-26-2020 influenza, seasonal, injectable Sonny Rivas Other [facility] 03-06-2019 influenza, seasonal, injectable Sonny Rivas Other [facility] NEGATED: Highlighted row has not occurred!07-26-2018 influenza, seasonal, injectable Patient Objection Sonny Rivas Other [facility] Other Payers Date Payer Category Payer Self-pay [id number] 2021 Unknown [id number] 1961 Unknown [id number] 2.1 [id number] 1960 Unknown [id number] 2.16.84 [id number] 1960 Unknown [id number] 2.16. [id number] 1960 Unknown [id number] 2.16. [id number] 1960 Unknown [id number] 2.16.84 [id number] Unknown [id number] 2.16.8 [id number] Social History Date Type Detail Facility Unknown if ever smoked [facility] Other Sex Assigned At Sex Assigned At Bir th [facility] Other Start: 11-12-2023 Tobacco smoking status NHIS Never smoked tobacco (finding) [facility] Start: 1960 Sex Assigned At Female [facility] Goals Date Patient Goal Desired Activity /State Clinical Notes 12-04-2012 to 11-12-2023 Note Date & Type Note Facility 11-12-2023 Procedure note [facility] 01-07-2023 Evaluation note Encounter Date Diagnosis Assessment [...] positive, and negative effects reviewed. Medication e-scribed. [facility] Other 08-24-2023 Evaluation note* Encounter Date Diagnosis Assessment Notes Treatment Notes Treatment Clinical Notes Nov, Elevated blood pressure reading (ICD-10 - R03.0) [facility] Other 05-02-2023 Evaluation note* Encounter Date Diagnosis Assessment Notes Treatment Notes Treatment Clinical Notes August, Panic attacks (ICD-10 - F41.0) [facility] Other 04-19-2023 Evaluation note* Encounter Date Diagnosis Assessment Notes Treatment Notes Treatment Clinical Notes Jul, Panic attacks (ICD-10 - F41.0) Jul, Elevated blood pressure reading (ICD-10 - R03.0) [facility] Other 04-10-2023 Evaluation note* Encounter Date Diagnosis Assessment Notes Treatment Notes Treatment Clinical Notes Jul, Cough, unspecified type (ICD-10 - R05.9) [facility] Other 03-30-2023 Evaluation note* Encounter Date Diagnosis Assessment Notes Treatment Notes Treatment Clinical Notes Jun, Panic attacks (ICD-10 - F41.0) [facility] Other 03-14-2023 Evaluation note* Encounter Date Diagnosis Assessment Notes Treatment Notes Treatment Clinical Notes Jun, Cough (ICD-10 - R05.9) [facility] Other 01-27-2023 NoteProcedure/Quality: A two-dimensional transthoracic echocardiogram with color[employer] Other 01-27-2023 NotePROCEDURE: The patient underwent Cardiolite exercise stress test with the Pardeep protocol. [facility] [employer] Other 01-27-2023 NoteProcedure/Quality: A two-dimensional transthoracic echocardiogram with colorNorth [place] [employer] Other 01-27-2023 NotePROCEDURE: The patient underwent Cardiolite exercise stress test with the Pardeep protocol. [facility] [employer] Other 12-29-2022 Evaluation note* Encounter Date Diagnosis [...] take as needed in the evening time. [facility] Other 11-18-2022 Evaluation note* Encounter Date Diagnosis Assessment Notes Treatment Notes Treatment Clinical Notes Feb, Hyperlipidemia (ICD-10 - E78.5) Feb, Hypothyroidism (ICD-10 - E03.9) Feb, Depression (ICD-10 - F32.9) [facility] Other 07-26-2022 Evaluation note* Encounter Date Diagnosis Assessment Notes Treatment Notes Treatment Clinical Notes Oct, GERD (gastroesophageal reflux disease) (ICD-10 - K21.9) [facility] Other 12-28-2021 Evaluation note* Encounter Date Diagnosis [...] and she is agreeable to a referral. [facility] Other 09-01-2013 History general Narrative - Reported* [...] Hospitalization History Cholecystectomy Hospitalization History Childbirth 1975 [facility] Other 09-01-2013 History general Narrative - Reported* Type Description Date Medical History colonoscopy - negative Medical History 12/2012 Mammogram/Pel arlet/Pap exam - follows with Medical History Actinic keratoses on Nose (frozen by -20-15) Medical History EKG 08/2015 Medical History 06/2015 [...] Hospitalization History Cholecystectomy Hospitalization History Childbirth 1977 [facility] Other Evaluation noteNo InformationN[facility]St[facility] Other Evaluation noteNo assessment information available [facility] Work Phone: History and physical note Author Linette Song [facility] November 12, 2023 8:46am Note Date/Time November 12, 2023 8:4 7am [facility] [address] [place] [address] Gastroenterology H&P Signed Patient: Elda Spencer MR#: [id number] : 1960 Acct:[id number] Age/Sex: 63 / F Adm Date: 4 Loc: Room: Type: [facility] Attending Dr: Linette Song MD Copies to: Sonny Rivas,DO Linette Song MD~ Date of Service: 11/12/2023 HISTORY & PHYSICAL: Patient's history with special attention to the cardiovascular, pulmonary systems and the current problem was reviewed with the patient immediately prior to the procedure. Present medications and doses reviewed in the EMR. Allergies and pertinent laboratory tests were also reviewedat this time in the EMR. The physical examination, as below, was then performed. Indication, assessment and HPI: 63-year-old female with history of colonic polyps here for surveillance colonoscopy Family history of GI malignancy? No PHYSICAL EXAMINATION General appearance: NAD Skin: No jaundice Head: NC/AT Eyes: Anicteric Neck: Supple Lungs: Normal respiratory effort, no use of accessory muscles Abdomen: nondistended Neuro: Ox3. REVIEW OF SYSTEMS Constitutional: Denies malaise, fevers Cardiovascular: Denies chest pain, palpitations Respiratory: Denies shortness of breath, wheezing Gastrointestinal: As per HPI Genitourinary: Denies dysuria, polyuria Musculoskeletal: Denies joint swelling, joint stiffness Neurological: Denies confusion, numbness, tingling Endocrine: Denies fatigue Written informed consent obtained from the patient. Risks (including but not limited to perforation, infection, bloating, bleeding, need for emergent surgeryand loss of life), benefits and alternatives explained and questions answered. The patient verbalized understanding. Based on history patient is an appropriate candidate for the procedure. Linette Song M.D. Documented By: Linette Song MD 11/12/23844 Signed By: <Electronically signed by Linette Song MD> 11/12/23845 [facility] Work Phone: Reason for visit NarrativePlastic Surgery Referral [place]Mill[place] [employer] Other Reason for Referral Reason *FU 04/10 consult and treat Diagnosis 1 Leakage of breast im plant, initial encounter (T85.43XA) Referral Organization [facility] [place] Referring Provider First Name Sonny Referring Provider Last Name Candida Referring Provider Specialty Family Prac faith Referred Organization Unknown Facility Referred Provider Bekah (refer)Celestine Referred Provider Specialty Plastic and Reconstructive Surgery Referral Priority Routine [facility] 07[facility]35[facility]16 AM >Received today and waiting for office notes to be locked before [facility] 04/02/2021 08:36:30 AM >Referral was fax Summary Purpose Family History No Family History Records Found Relationship Condition Age at Onset Recorded Date/T janet father Unknown Automobile accident Unknown grandparent Myocardial infarction Unknown Chronic obstructive pulmonary disease Unk nown mother Unknown Advance Directives No Advanced Directives Records Found Advance Directive Response Recorded Date/ Time Advance Directives No April 26, 2023 3:08pm Chief Complaint and Reason for Visit Chief Complaint Amb Documentation Screening Screening Additional Source Comments REASON FOR VISIT (unrecogniz ed section and content) review labsClinicalClinical Acute MedicinePAClinical Acute IllnessRefillsneck pain & chest painClinical Acute IllnessWHITE JEROBERT CRAWLEY; SYMPTOMS STARTED LAST : (NEG AT-HOME COVID TEST) SOB, BAD COUGH, HOARSE, SINUS PRESSURE/CONGESTIONNo InformationRefillsclinicalrefillRefillsClinicalRefillsClinicalreview labs- hyperlipidemia management INFORMATION SOURCE (unrecogn ized section and content) DATE CREATED AUTHOR 07/08/2022 [facility] DATE CREATED AUTHOR AUTHOR'S ORGANIZ ATION 08/01/2022 [facility] DATE CREATED AUTHOR AUTHOR'S ORGANIZ ATION 09/18/2023 [facility] DATE CREATED AUTHOR AUTHOR'S ORGANIZ ATION 11/23/2023 [facility] Care Teams (unrecognized sec tion and content) Team Status: Active Member Role Status Dates Sonny Rivas DO Primary Care Provider Active Team Status: Active Member Role Status Dates Sonny Rivas DO Primary Care Provider Active Sta rt: October 18, 2023 NANDINI Andersen Attending Provider Active Start: October 18, 2023 Team Status: Active Member Role Status Dates Sonny Rivas DO Primary Care Provide r, Attending Provider Active Start: November 11, 2023 Team Status: Inactive Member Role Status Dates Sonny Rivas DO Primary Care Provider Active Sta rt: November 12, 2023 End: November 12, 2023 Linette Song MD Attending Provider Active Start: November 12, 2023 End: November 12, 2023 Team Status: Active Member Role Status Dates Sonny Rivas DO Primary Care Provider Active Sta rt: November 12, 2023 Linette Song MD Attending Provider, Other Provider Act naomi Start: November 12, 2023 FOR RECORDS PERTAINING TO PATIENTS WHO ARE [...] BE BASED ON THE PRIMARY CLINICAL RECORDS. [facility]. provides no warranty or guarantee of the accuracy or completeness of information in this document.
== END 2024-02-09 13:15 | disposition home or self-care (01) ==
LOC: RAD 13:19
PROVIDERS: PCP Family Medicine; Visit Provider Family Medicine
DX: M25.551 Pain in right hip (principal); M25.552 Pain in left hip; R10.9 Unspecified abdominal pain; R31.9 Hematuria, unspecified; K57.90 Diverticulosis of intestine, part unspecified, without perforation or abscess without bleeding; Z85.3 Personal history of malignant neoplasm of breast; M51.369 Other intervertebral disc degeneration, lumbar region without mention of lumbar back pain or lower extremity pain
CPT/HCPCS: 72114; 72220; 73523

== ENCOUNTER 2024-02-28 13:51 | Outpatient (OUT) | payer OTHER, MEDICARE, SELFPAY ==
--- NOTE | 2024-02-28 14:05 | CT_ITS ---
The [address] [address] Patient Name: GREGORIA STOCKTON MRN: [id number] date: 1960 Sex: F Assigned Patient Location: LAB Current Patient Location: Accession/Order Number: [id number] Exam Date: 02/28/2024 15:20 Report Date: 02/29/2024 07:12 At the request of: ROSALIO RIVAS Procedure: CT abdomen pelvis w con EXAM: CT abdomen pelvis w con HISTORY: right side abdominal pain, diverticular disease COMPARISON: None. TECHNIQUE: Following intravenous administration of 100 cc of Omnipaque 300, axial soft tissue windows of the abdomen and pelvis performed with coronal and sagittal reformats. CT dose reduction technique was used including Automated Exposure Control. Findings: ABDOMEN: There is fatty infiltration of the liver. The gallbladder is surgically absent. The spleen, pancreas, and adrenal glands are unremarkable. No renal stones or collecting system dilatation. The bilateral ureters are nondilated. There are colonic diverticula. Otherwise, the bowel is unremarkable without evidence of wall thickening or obstruction. The appendix is nondilated. The aorta is normal caliber. Minimal atherosclerotic disease. No enlarged abdominal lymph nodes or free abdominal fluid. Pelvis: Unremarkable bladder. The uterus is present and unremarkable within the limits of CT. No enlarged pelvic lymph nodes or free pelvic fluid. No aggressive sclerotic or lytic osseous lesions. Mild multilevel degenerative thoracic spondylosis. CT/CT abdomen pelvis w con IMPRESSION: 1. Diverticulosis. 2. Fatty liver. 3. Other nonemergent findings, as described above. Electronically authenticated by: JASMYN VALENTIN Date: 02/29/2024 07:12
[2024-02-28 14:16] LABS: Alanine Aminotransferase 38 U/L (14-59); Albumin Globulin Ratio 1.3; Albumin Level 3.8 g/dL (3.4-5.0); Alkaline Phosphatase 71 U/L (46-116); Anion Gap 14.2; Aspartate Amino Transferase 19 U/L (15-37); Bilirubin Total 0.6 mg/dL (0.2-1.0); Calcium 8.8 mg/dL (8.5-10.1); Carbon Dioxide 26.8 mmol/L (21.0-32.0); Chloride 105 mmol/L (98-107); Estimated GFR (African America >60 (>=60 mL/min/1.73m^2); Estimated GFR (Non-African Ame 56 (>=60 mL/min/1.73m^2); Globulin 2.9 g/dL; Glucose 83 mg/dL (74-106); Sodium 142 mmol/L (136-145); Total Protein 6.7 g/dL (6.4-8.2)
== END 2024-02-28 13:52 | disposition home or self-care (01) ==
LOC: LAB 13:51
PROVIDERS: PCP Family Medicine; Visit Provider Family Medicine
DX: Z79.899 Other long term (current) drug therapy (principal); R10.9 Unspecified abdominal pain; R31.9 Hematuria, unspecified; K57.90 Diverticulosis of intestine, part unspecified, without perforation or abscess without bleeding; Z85.3 Personal history of malignant neoplasm of breast; K76.0 Fatty (change of) liver, not elsewhere classified
CPT/HCPCS: 36415; 74177; 80053; Q9967

== ENCOUNTER 2024-03-24 12:51 | Outpatient (OUT) | payer OTHER, MEDICARE, SELFPAY ==
--- NOTE | 2024-03-24 12:53 | VEIN_ITS ---
The [address] [address] Patient Name: GREGORIA STOCKTON MRN: [id number] date: 1960 Sex: F Assigned Patient Location: Current Patient Location: Accession/Order Number: [id number] Exam Date: 03/24/2024 12:54 Report Date: 03/24/2024 14:04 At the request of: ROSALIO RIVAS Procedure: VC SEGMENTAL PRESSURES EXAM: VC SEGMENTAL PRESSURES HISTORY: m79.605 COMPARISON: None. FINDINGS: Segmental pressures presented as follows (right, left) in mmHg. Brachial: 153, not obtained due to prior breast surgery Upper thigh: 178, 178 Lower thigh: 194, 190 Calf: 186, 205 DPA: 169, 135 DOCENT COORDINATOR: 163, 153 1st Toe: 125, 140 ANTONY: 1.1, 1.0 TBI: 0.82, 0.92 The ABIs are Normal The TBI's are Acceptable PVR waveforms: Right leg: Thigh: Normal Above knee: Normal Below knee: Normal Right ankle: Normal Left leg: Thigh: Normal Above knee: Normal Below knee: Normal Right ankle: Normal VEIN/VC SEGMENTAL PRESSURES IMPRESSION: Normal exam Electronically authenticated by: JAIRON BAUMAN Date: 03/24/2024 14:04
== END 2024-03-24 12:52 | disposition home or self-care (01) ==
LOC: VC 12:52
PROVIDERS: PCP Family Medicine; Visit Provider Family Medicine
DX: M25.551 Pain in right hip (principal); M25.552 Pain in left hip; M79.604 Pain in right leg; M79.605 Pain in left leg; I73.9 Peripheral vascular disease, unspecified; R09.89 Other specified symptoms and signs involving the circulatory and respiratory systems
CPT/HCPCS: 93923

== ENCOUNTER 2024-11-01 08:47 | Outpatient (OUT) | payer OTHER, SELFPAY ==
--- OUTSIDE RECORDS SUMMARY | 2024-11-01 08:55 | XMS_ITS | Clinical Summary ---
Author Organization [facility] Healthcare Address [address] [place] [address] Care Team Providers Care Field Geologist Name Role Phone Rosalio Rivas DO Primary Care Provider Allergies No known active allergies Medications citalopram (CeleXA) 20 MG tablet Take 20 mg by mouth in the morning. 08/18/2022 Active simvastatin (Zocor) 20 MG tablet Take 20 mg by mouth in the evening. Active Benicar 20 MG tablet Take 20 mg by mouth in the morning. 06/30/2022 Active omeprazole OTC (PriLOSEC OTC) 20 MG EC tablet Take 40 mg by mouth in the morning. Take before meals. Active levothyroxine (Synthroid, Levoxyl) 50 MCG tablet Take 100 mcg by mouth in the morning. Take before meals. Active ibuprofen 800 MG tablet Take 800 mg by mouth Daily as needed for mild pain. 06/15/2022 Active cholecalciferol (Vitamin D-3) 50 MCG (2000 UT) tablet Take 1,000 Units by mouth 1 (one) time each day at the same time. Active Cyanocobalamin (Vitamin B 12) 100 MCG lozenge Take by mouth Daily. Active estradiol (Vagifem) 10 MCG tablet vaginal tabletIndicatio ns:Vaginal atrophy,Dyspare unia in female Insert 1 tablet (10 mcg) into the vagina at bedtime. Insert 1 tablet into vagina at bedtime for 2 weeks, then at bedtime twice a week. 18 tablet 3 09/03/2022 Active traZODone (Desyrel) 50 MG tablet Take 50 mg by mouth at bedtime 10/29/2022 Active estradiol (Estrace) 0.1 MG/GM vaginal creamIndication s:Lichen sclerosus et atrophicus Insert 1 g into the vagina 2 (two) times a week 42.5 g 2 09/16/2023 Active clobetasol (Temovate) 0.05 % ointmentIndicat ions:Lichen sclerosus et atrophicus Apply thin film BID x 4 weeks then once daily x 4 weeks then every other day and ween slowly to use twice weekly 30 g 1 09/16/2023 Active Social History Tobacco Use Types Packs/Day Years Used Date Smoking Tobacco: Never Smokeless Tobacco: Never Tobacco Cessation:Counseling Given: Not Answered Alcohol Use Standard Drinks/Week Comments Yes 0 (1 standard drink = 0.6 oz pur e alcohol) AUDIT-C Answer Date Recorded Q1: How often do you have a drink containing alc ohol? Monthly or less 09/03/2022 Q2: How many drinks containi ng alcohol do you have on a typical day when you are drinking? 1 or 2 09/03/2022 Q3: How often do you have si x or more drinks on one occasion? Never 09/03/2022 PHQ-2 Answer Date Recorded Patient Health Questionnaire-2 Score 0 09/14/2023 Comments No Sex and Gender Information Value Date Recorded Sex Assigned at Not on file Legal Sex Female 6:38 PM EDT Gender Identity Not on file Sexual Orientation Not on file Last Filed Vital Signs Vital Sign Reading Time Taken Comments Blood Pressure 124/84 09/16/2023 3:34 PM EDT Pulse - - Temperature - - Respiratory Rate - - Oxygen Saturation - - Inhaled Oxygen Concentration - - Weight 88 kg (194 lb) 09/16/2023 3:34 PM EDT Height 161.3 cm (5' 3.5 ) 09/16/2023 3:34 PM EDT Body Mass Index 33.83 09/16/2023 3:34 PM EDT Plan of Treatment Health Maintenance Due Date Last Done Comments CT Colonography 1960 Colonoscopy 1960 Colorectal Cancer Screening 1960 FIT-DNA 1960 FIT 1960 FOBT 1960 Sigmoidoscopy 1960 Pneumococcal Vaccine: 65+ Ye ars (1 of 1 - PCV) 2008 Mammogram 01/10/2022 01/10/2021, 11/2 , 02/22/2019, Additional history exists Influenza Vaccine (#1) 2024 4, 04/01/2021, 01/26/2020, Additional history exists Pap Smear Discontinued 09/19/2018, 09/19/2018 Cervical Cancer Screening Discontinued HPV/Cotest Discontinued 09/03/2022 Procedures Procedure Name Priority Date/Time Associated Diagnosis Comments THINPREP PAP AND HPV MRNA E6/E7 W/RFL HPV 16,18/45 Routine 09/03/2022 4:00 PM EDT Screening for malignant neoplasm of cervix Screening for HPV (human papillomavirus) BI MAMMOGRAM SCREENING TOMOSYNTHESIS BILATERAL Routine 01/10/2021 PAP SMEAR Routine 09/19/2018 12:00 AM EDT from Last 3 Months or Most Recently Relevant to Health Maintenance Results * THINPREP PAP AND HPV MRNA E6/E7 W/RFL HPV 16,18/45 (09/03/2022 4:00 PM EDT) REPORT STATUS CANCELED [facility] Comment:Result canceled by t he ancillary. CLINICAL INFORMATION Routine exam [facility] LMP NONE GIVEN [facility] PREV. PAP NONE GIVEN [facility] PREV. BX NONE GIVEN [facility] SOURCE None given [facility] STATEMENT OF ADEQUACY SATISFACTORY FOR EVALUATION [facility] GENERAL CATEGORIZATION CANCELED [facility] Comment:Result canceled by t he ancillary. INTERPRETATION/RESU LT [facility] Comment: Negative for intraepithelial lesion or malignancy. Atrophic pattern; predominantly parabasal cells INFECTION CANCELED [facility] Comment:Result canceled by t he ancillary. COMMENT [facility] Comment: Parabasal cells in smears that lack maturation due to atrophy or other hormonal reasons cannot be differentiated from transformation zone cells. Accordingly, presence or absence of endocervical or transformation zone components cannot be reported in this patient. ELEMENTARY SUBSTITUTE TEACHER [facility] Comment: RLP, CT(ASCP) CT screening location: [facility], [address] [place] [address]. REVIEW ELEMENTARY SUBSTITUTE TEACHER CANCELED [facility] Comment:Result canceled by t he ancillary. PATHOLOGIST CANCELED [facility] Comment:Result canceled by t he ancillary. (ALWAYS MESSAGE) [facility] Comment: EXPLANATORY NOTE: The Pap is a screening test for cervical cancer. It is not a diagnostic test and is subject to false negative and false positive results. It is most reliable when a satisfactory sample, regularly obtained, is submitted with relevant clinical findings and history, and when the Pap result is evaluated along with historic and current clinical information. HPV MRNA E6/E7 Not Detected Not Detected [facility] Comment: Methodology: [employer]point Architect-Mediated Amplification This assay detects E6/E7 viral messenger RNA (mRNA) from 14 high-risk HPV types (16,18,31,33,35,39,45,51,52,56,58,59,66,68). Cervical sources are required for HPV testing. If a vaginal source from a patient who has had a total hysterectomy with removal of cervix was submitted, please contact the testing laboratory for alternative testing options. For additional information, please refer to http://education.[employer]/faq/GLS894a7 (This link if provided for information/ educational purposes only.) Body Fluid 09/03/2022 4:00 PM EDT 09/04/2022 3:42 AM EDT Narrative Resulting Agency Comment Performing Organization Information Site ID: [id number] Name: [facility] Address: [address] [place] [address], [address] [place] [id number] Director: Enzo Hale MD us Juan Francisco Cheney DO LAB BLOOD ORDERABLES Final Re sult [facility] * Bilateral screening mammogram with tomosynthesis (01/10/2021) Anatomical Region Laterality Modality Breast Bilateral Mammography Narrative 01/10/2021 12:00 AM EDT PERFORMED AT [facility] LOCATION:[place] [address] Patient: KATH Lindsay Exam Date: 01/10/2021 : 1960 Gender:F Ordering : DR JUAN FRANCISCO CHENEY Admission #: [id number] Family : DR ROSALIO RIVAS Order #: [id number] CLICK HERE TO VIEW EXAM RADIOLOGY REPORT PROCEDURE: MAMMOGRAM SCREENING 3D BILATERAL CAD COMPARISON: MG MAMM SCREEN SHAGGY W CAD 08/23/2017. MG MAMM SCREEN SHAGGY W CAD 02/22/2019. INDICATIONS: Screening mammography Calculator Name NCI Breast Cancer Risk Assessment Tool 5 Year Breast Cancer Risk n/a% Lifetime Breast Cancer Risk n/a% Personal Breast Cancer Yes Breast CA lt Breast Age 37 Personal Ovarian Cancer No Treatments Partial Masectomy and radiation Family Cancers Mother with breast cancer at age 59; Aunt-maternal with breast cancer at age 60; Aunt-maternal with breast cancer at age 60; Aunt-paternal with breast cancer at age 42; Sister with breast cancer at age 45. LOCATION: [facility] BREAST COMPOSITION: Scattered areas fibroglandular density. FINDINGS: DIAGNOSTIC CATEGORY 2--BENIGN FINDING NO CHANGE FROM COMPARISON ASSESSMENT. Scattered benign-appearing nodules are present. Scattered benign-appearing calcifications are present. Scattered benign-appearing lymph nodes are present. RIGHT BREAST: No significant suspicious finding. LEFT BREAST: Asymmetrically small. Intact saline implant. RECOMMENDATIONS: ROUTINE MAMMOGRAM AND CLINICAL EVALUATION IN 12 MONTHS. PLEASE NOTE: A NORMAL MAMMOGRAM DOES NOT EXCLUDE THE POSSIBILITY OF BREAST CANCER. A CLINICALLY SUSPICIOUS PALPABLE LUMP SHOULD BE BIOPSIED. Dictated by: Robbin Yoder MD on 01/13/2021 at 09:42 Approved by: Robbin Yoder MD on 01/13/2021 at 09:43 Procedure Note CONVERSION, GENERIC - 10/09/2022 PERFORMED AT [facility] LOCATION:[place] [address] Patient: KATH Lindsay Exam Date: 01/10/2021 : 1960 Gender:F Ordering : DR JUAN FRANCISCO CHENEY Admission #: [id number] Family : DR ROSALIO RIVAS Order #: [id number] CLICK HERE TO VIEW EXAM RADIOLOGY REPORT PROCEDURE: MAMMOGRAM SCREENING 3D BILATERAL CAD COMPARISON: MG MAMM SCREEN SHAGGY W CAD 08/23/2017. MG MAMM SCREEN SHAGGY W CAD 02/22/2019. INDICATIONS: Screening mammography Calculator Name NCI Breast Cancer Risk Assessment Tool 5 Year Breast Cancer Risk n/a% Lifetime Breast Cancer Risk n/a% Personal Breast Cancer Yes Breast CA lt Breast Age 37 Personal Ovarian Cancer No Treatments Partial Masectomy and radiation Family Cancers Mother with breast cancer at age 59; Aunt-maternalwith breast cancer at age 60; Aunt-maternal with breast cancer at age 60; Aunt-paternal with breast cancer at age 42; Sister with breast cancer atage 45. LOCATION: [facility] BREAST COMPOSITION: Scattered areas fibroglandular density. FINDINGS: DIAGNOSTIC CATEGORY 2--BENIGN FINDING NO CHANGE FROM COMPARISONASSESSMENT. Scattered benign-appearing nodules are present. Scatteredbenign-appearing calcifications are present. Scattered benign-appearing lymph nodes are present. RIGHT BREAST: No significant suspicious finding. LEFT BREAST: Asymmetrically small. Intact saline implant. RECOMMENDATIONS: ROUTINE MAMMOGRAM AND CLINICAL EVALUATION IN 12 MONTHS. PLEASE NOTE: A NORMAL MAMMOGRAM DOES NOT EXCLUDE THE POSSIBILITY OFBREAST CANCER. A CLINICALLY SUSPICIOUS PALPABLE LUMP SHOULD BE BIOPSIED. Dictated by: Robbin Yoder MD on 01/13/2021 at 09:42 Approved by: Robbin Yoder MD on 01/13/2021 at 09:43 us Juan Francisco Cheney DO IMG BI PROCEDURES Final Resul t * Pap Smear (09/19/2018 12:00 AM EDT) Swab Cervical swab / Unknown us Juan Francisco Cheney DO LAB CYTOLOGY ORDERABLES Final Result [facility] from Last 3 Months or Most Recently Relevant to Health Maintenance Insurance [employer] Care Teams Field Geologist Relationship Specialty Start Date End Date Rosalio Rivas DO PCP - General 09/02/22
--- OUTSIDE RECORDS SUMMARY | 2024-11-01 09:03 | XMS_ITS | CCD ---
Author Organization [facility] Inform ion Partnership [facility] Care Team Providers Care Family Counselor Name Role Phone Sonny Rivas Unavailable DR SONNY RIVAS Primary Care Unavailable CANDIDA, DR DENNIS Attending Unavailable Magdaleno Clifford Consulting Unavailable DR SONNY RIVAS Admitting Unavailable DR SONNY RIVAS Consulting Unavailable McGuinn II, Dr. Renny Moreland Attending Unavailable Renny Goins Referring Unavailable JUAN FRANCISCO CHENEY Attending Unavailable JUAN FRANCISCO CHENEY Referring Unavailable DO Sonny Rivas Primary Care Provider [phone] MD Linette Song Attending Provider Duncan, Linette Admitting Unavailable Linette Song Attending Unavailable Sonny Rivas Primary Care Unavailable Sonny Rivas Admitting Unavailable Sonny Rivas Primary Care Unavailable Sonny Rivas Attending Unavailable Allergies Allergy Classification Reported Allergen(s) Allergy Type Date of Onset Reaction(s) Facility (20 sources) zolpidem Drug Allergy 11-12-2023 [facility] (1 source) zolpidem Drug Allergy 03-09-2024 [facility] Repository Medications Current Medications Medication Drug Class(es) [...] Start: 01-07-2023 take 1 tablet by arie th every twenty-four hours Amitriptyline HCl 10 MG [...] 07-16-2016 take 1 tablet by arie th every twenty-four hours CeleXA 20 mg 1 [...] (20 sources) Hyperlipidemia; Translations: [Hyperlipidemia, unspecified] Onset: 04-01-2021 Resolved: 04-01-2021 Chronic Diverticulosis and diverticulitis (20 sources) Diverticular disease; Translations: [Diverticulosis of intestine, part unspecified, without perforation or abscess without bleeding] Chronic Esophageal disorders (20 sources) Gastroesophageal reflux disease; Translations: [Gastro-esophageal reflux disease without esophagitis] Onset: 04-01-2021 Resolved: 10-28-2021 Chronic Essential hypertension (1 source) Hypertensive disorder; Translations: [Essential (primary) hypertension] 06-10-2023 Chronic Headache; including migraine (9 sources) Headache; Translations: [Headache] Episodic Influenza (19 sources) Influenza due to Influenza B virus; Translations: [Influenza due to other identified influenza virus with other respiratory manifestations] Episodic Mood disorders (20 sources) Depressive disorder; Translations: [Major depressive disorder, single episode, unspecified] Onset: 04-01-2021 Resolved: 04-01-2021 Chronic Nonspecific chest pain (1 source) Chest [...] source) Pain in left knee Episodic Other non-traumatic joint disorders (1 source) Pain in right hip; Translations: [Pain in right hip] Onset: 03-09-2024 Episodic Other nutritional; endocrine; and metabolic disorders (19 sources) Obesity; Translations: [Obesity, unspecified] Chronic Other nutritional; endocrine; and metabolic disorders (19 sources) Obese class I; Translations: [Body mass index (BMI) 31.0-31.9, adult] Chronic Other nutritional; endocrine; and metabolic disorders (1 source) Obesity, unspecified Chronic Other skin disorders (19 sources) Alopecia; Translations: [...] (20 sources) Hypothyroidism; Translations: [Hypothyroidism, unspecified] Onset: 04-01-2021 Resolved: 04-01-2021 Chronic Unclassified (3 sources) COUGH, UNSPECIFIED; Translations: [COUGH, UNSPECIFIED] Onset: 07-03-2022 Viral infection (1 source) Herpes labialis; Translations: [Herpesviral vesicular dermatitis] 06-10-2023 Episodic Past or Other Problems Problem Classification Problem Date Documented Date Episodic/Chronic Complication of device; implant or graft (1 source) Leakage of breast prosthesis and implant, initial encounter Onset: 04-01-2021 Resolved: 04-01-2021 Episodic Immunizations and screening for infectious disease (1 source) Encounter for immunization Onset: 04-01-2021 Resolved: 04-01-2021 Episodic Other screening for suspected conditions (not mental disorders or infectious disease) (2 sources) Abnormal electrocardiogram [ECG] [EKG]; Translations: [Encounter for screening for malignant neoplasm of colon] Onset: 11-12-2023 Episodic Residual codes; unclassified (1 source) Past history of procedure; Translations: [Personal history of other medical treatment] Onset: 04-05-2022 06-09-2023 Episodic Unclassified (2 sources) Cough R05.9 Unclassified (1 source) COUGH, UNSPECIFIED; Translations: [COUGH, UNSPECIFIED] Onset: 06-29-2022 Results Test Name Value Interpretation Reference Range Facility PAGE Antinuclear Antibodieson 03-09-2024 Antinuclear Abs, IFA Negative Normal . [facility] Comment on above: Result Comment: Nega tive <1:80 Borderline 1:80 Positive >1:80 ICAP nomenclature: AC-0 For more information about Hep-2 cell patterns use ANApatterns.org, the official website for the International Consensus on Antinuclear Antibody (PAGE) Patterns (ICAP). Performed at: - [facility] [id number] Pointer Helper: Art Saha PhD, Phone: [phone] PERFORMED BY: [place] [address] PATHOLOGIST HOT BRAIDER VALENTINA SHERMAN M.D. Performed By: #### R A, PAGE #### [facility] , #### URIC, ESR, CRP #### [address] C-Reactive Proteinon 024 C-Reactive Protein 1.5 mg/dL High 0.0-0.5 [facility] Comment on above: Result Comment: PERF ORMED BY: [place] [address] PATHOLOGIST HOT BRAIDER VALENTINA SHERMAN M.D. Performed By: #### R A, PAGE #### [facility] , #### URIC, ESR, CRP #### [address] Erythrocyte Sedimentation Ra francisca 03-09-2024 ESR (Bld) [Velocity] 25 mm/h Normal 0-29 [facility] Comment on above: Result Comment: PERF ORMED BY: [place] [address] PATHOLOGIST HOT BRAIDER VALENTINA SHERMAN M.D. Performed By: #### R A, PAGE #### [facility] , #### URIC, ESR, CRP #### [address] Rheumatoid Factoron 03-09-20 Rheumatoid Factor 11.4 [IU]/mL Normal <14.0 [facility] Comment on above: Result Comment: Perf ormed at: - [facility] [address] [id number] Pointer Helper: Art Saha PhD, Phone: [phone] Performed By: #### R A, PAGE #### [facility] , #### URIC, ESR, CRP #### [address] Uric Acidon 03-09-2024 Urate [Mass/Vol] 3.8 mg/dL Normal 2.3-6.6 [facility] Comment on above: Performed By: #### R A, PAGE #### [facility] , #### URIC, ESR, CRP #### [address] Pathology Request for Lab Co rpon 11-12-2023 Pathology Request for Lab Ricardo Normal [facility] Comment on above: Order Comment: PATHO LOGY GI SPECIMEN Result Comment: See report. Scanned copy available in EMR. PERFORMED BY: [place] [address] PATHOLOGIST HOT BRAIDER DEYSI IVERSON M.D. Performed By: #### P ATH TO [facility] #### [address] [place] [address] [facility] Basophils Auto (Bld) [#/Vol] on 11-11-2023 Basophils (Bld) [#/Vol] 0.0 10 3/uL 0.0-0.1 [facility] Basophils/100 WBC Auto (Bld) on 11-11-2023 Basophils/100 WBC (Bld) 0.8 % 0.2-2.0 [facility] Cholesterol in LDL Calc [Mas s/Vol]on 11-11-2023 Cholesterol in LDL [Mass/Vol] 94.0 mg/dL [facility] Comment on above: <100 mg/dl [id number] 0-129 mg/dl NEAR OR ABOVE [id number] mg/dl BORDERLINE [id number] mg/dl HIGH>190 mg/dl VERY HIGH Cholesterol in VLDL Calc [Ma ss/Vol]on 11-11-2023 Cholesterol in VLDL [Mass/Vol] 16.0 mg/dL [facility] Eosinophils/100 WBC Auto (Bl d)on 11-11-2023 Eosinophils/100 WBC (Bld) 2.3 % 0.9-7.0 [facility] Erythrocyte distribution wid th Auto (RBC) [Ratio]on 11-11-2023 Erythrocyte distribution width (RBC) [Ratio] 12.6 % 11.0-15.0 [facility] Estimated glomerular filtrat ion rate (GFR) non- Americanon 11-11-2023 GFR/1.73 sq M.predicted among non-blacks MDRD (S/P/Bld) [Vol rate/Area] mL/min/{1.73_m2} >=60 [facility] Globulin Calc (S) [Mass/Vol] on 11-11-2023 Globulin (S) [Mass/Vol] 3.2 g/dL [facility] Glucose mean value [Mass/vol ume] in Blood Estimated from glycated hemoglobinon 11-11-2023 Average glucose Estimated from glycated hemoglobin (Bld) [Mass/Vol] 103 mg/dL [facility] Hematocrit Auto (Bld) [Volum e fraction]on 11-11-2023 Hematocrit (Bld) [Volume fraction] 36.5 % 36.0-48.0 [facility] Hemoglobin [Mass/volume] in Bloodon 11-11-2023 Hemoglobin (Bld) [Mass/Vol] 12.5 g/dL 12.0-16.0 [facility] Laboratory - Chemistry and C hemistry - challengeon 11-11-2023 Albumin [Mass/Vol] 3.8 g/dL 3.4-5.0 [facility] ALP [Catalytic activity/Vol] 72 U/L 46-116 [facility] ALT [Catalytic activity/Vol] 31 U/L 14-59 [facility] AST [Catalytic activity/Vol] 13 U/L Low 15-37 [facility] Bilirubin [Mass/Vol] 0.6 mg/dL 0.2-1.0 [facility] Calcium [Mass/Vol] 9.2 mg/dL 8.5-10.1 [facility] Chloride [Moles/Vol] 104 mmol/L 98-107 [facility] Cholesterol [Mass/Vol] 177 mg/dL <=200 [facility] Cholesterol in HDL [Mass/Vol] 67 mg/dL High 40-60 [facility] Comment on above: > or =60 mg/dl - LOW CARDIOVASCULAR RISK<40 mg/dl - HIGH CARDIOVASCULAR RISK CO2 [Moles/Vol] 26.3 mmol/L 21.0-32.0 [facility] Creatinine [Mass/Vol] 0.90 mg/dL 0.55-1.02 [facility] Free T4 [Mass/Vol] 1.03 ng/dL 0.76-1.46 [facility] GFR/1.73 sq M.predicted MDRD (S/P/Bld) [Vol rate/Area] mL/min/{1.73_m2} >=60 [facility] Glucose [Mass/Vol] 98 mg/dL 74-106 [facility] Potassium [Moles/Vol] 3.9 mmol/L 3.5-5.1 [facility] Protein [Mass/Vol] 7.0 g/dL 6.4-8.2 [facility] Sodium [Moles/Vol] 139 mmol/L 136-145 [facility] Triglyceride [Mass/Vol] 80 mg/dL <=150 [facility] TSH Qn 1.530 m[IU]/L 0.358-3.740 [facility] Urea nitrogen [Mass/Vol] 21.0 mg/dL High 7.0-18.0 [facility] Urea nitrogen/Creatinine [Mass ratio] 23.3 mg/mg [facility] Laboratory - Hematology and Cell countson 11-11-2023 HbA1c (Bld) [Mass fraction] 5.2 % 4.5-6.2 [facility] Comment on above: ADA RECOMMENDED LIMI T 4.0 - 6.0ADA THERAPEUTIC TARGET < 7.0ACTION SUGGESTED> 7.0 Immature granulocytes/100 WBC (Bld) 0.4 % 0.0-0.5 [facility] Leukocytes [#/volume] correc kami for nucleated erythrocytes in Blood by Automated counon 11-11-2023 WBC corrected for nucl RBC Auto (Bld) [#/Vol] 5.2 10 3/uL 4.0-11.0 [facility] Lymphocytes Auto (Bld) [#/Vo l]on 11-11-2023 Lymphocytes (Bld) [#/Vol] 1.7 10 3/uL 1.2-3.8 [facility] Lymphocytes/100 WBC Auto (Bl d)on 11-11-2023 Lymphocytes/100 WBC (Bld) 32.8 % 20.5-60.0 [facility] MCH Auto (RBC) [Entitic mass ]on 11-11-2023 MCH (RBC) [Entitic mass] 32.7 pg 26.7-34.0 [facility] MCHC Auto (RBC) [Mass/Vol]on 11-11-2023 MCHC (RBC) [Mass/Vol] 34.2 g/dL 29.9-35.2 [facility] MCV Auto (RBC) [Entitic vol] on 11-11-2023 MCV (RBC) [Entitic vol] 95.5 fL 81.0-99.0 [facility] Monocytes Auto (Bld) [#/Vol] on 11-11-2023 Monocytes (Bld) [#/Vol] 0.4 10 3/uL 0.3-0.8 [facility] Monocytes/100 WBC Auto (Bld) on 11-11-2023 Monocytes/100 WBC (Bld) 8.0 % 1.7-12.0 [facility] Neutrophils Auto (Bld) [#/Vo l]on 11-11-2023 Neutrophils (Bld) [#/Vol] 2.9 10 3/uL 1.4-6.5 [facility] Neutrophils/100 WBC Auto (Bl d)on 11-11-2023 Neutrophils/100 WBC (Bld) 55.7 % 43.0-75.0 [facility] No Panel Informationon 11-10 25-Hydroxy Vitamin D Total 48.7 ng/mL [facility] Comment on above: <20 ng/mL Vit D defi cient20-<30 ng/mL Vit D [id number] ng/mL Vit D sufficient>100 ng/mL Potential Toxicity Eosinophils # (Auto) 0.1 10 3/uL 0.0-0.7 [facility] Immature Granulocyte # (Auto) 0.02 10 3/uL 0.00-0.03 [facility] Platelet mean volume Auto (B ld) [Entitic vol]on 11-11-2023 Platelet mean volume (Bld) [Entitic vol] 9.3 fL Low 9.5-13.5 [facility] Platelets Auto (Bld) [#/Vol] on 11-11-2023 Platelets (Bld) [#/Vol] 320 10 3/uL 150-450 [facility] RBC Auto (Bld) [#/Vol]on RBC (Bld) [#/Vol] 3.82 10 6/uL Low 4.20-5.40 [facility] Serum or plasma albumin/glob ulin mass ratioon 11-11-2023 Albumin/Globulin [Mass ratio] 1.2 {ratio} [facility] Serum or plasma anion gap de terminationon 11-11-2023 Anion gap [Moles/Vol] 12.6 mmol/L [facility] Serum or plasma total choles terol/high density lipoprotein (HDL) cholesterol mass lavelle 11-11-2023 Cholesterol.total/C holesterol in HDL [Mass ratio] 2.6 {ratio} [facility] Comment on above: 3.3 - 4.4 LOW RISK4. 4 - 7.1 AVERAGE RISK7.1 - 11.0 MODERATE RISK>11.0 HIGH RISK Basophils Auto (Bld) [#/Vol] on 10-18-2023 Basophils (Bld) [#/Vol] 0.0 10 3/uL 0.0-0.1 [facility] Basophils/100 WBC Auto (Bld) on 10-18-2023 Basophils/100 WBC (Bld) 0.5 % 0.2-2.0 [facility] Eosinophils/100 WBC Auto (Bl d)on 10-18-2023 Eosinophils/100 WBC (Bld) 2.1 % 0.9-7.0 [facility] Erythrocyte distribution wid th Auto (RBC) [Ratio]on 10-18-2023 Erythrocyte distribution width (RBC) [Ratio] 12.3 % 11.0-15.0 [facility] Estimated glomerular filtrat ion rate (GFR) non- Americanon 10-18-2023 GFR/1.73 sq M.predicted among non-blacks MDRD (S/P/Bld) [Vol rate/Area] 54 mL/min/{1.73_m2} Low >=60 [facility] Fibrin D-dimer [Presence] in Platelet poor plasma by Latex agglutinationon 10-18-2023 Fibrin D-dimer LA Ql (PPP) 0.43 mg/L FEU <=0.59 [facility] Comment on above: Increases in D-Dimer concentration [...] on 10-18-2023 Globulin (S) [Mass/Vol] 3.4 g/dL [facility] Hematocrit Auto (Bld) [Volum e fraction]on 10-18-2023 Hematocrit (Bld) [Volume fraction] 38.7 % 36.0-48.0 [facility] Hemoglobin [Mass/volume] in Bloodon 10-18-2023 Hemoglobin (Bld) [Mass/Vol] 13.1 g/dL 12.0-16.0 [facility] Laboratory - Chemistry and C hemistry - challengeon 10-18-2023 Albumin [Mass/Vol] 3.7 g/dL 3.4-5.0 [facility] ALP [Catalytic activity/Vol] 90 U/L 46-116 [facility] ALT [Catalytic activity/Vol] 47 U/L 14-59 [facility] AST [Catalytic activity/Vol] 27 U/L 15-37 [facility] Bilirubin [Mass/Vol] 0.6 mg/dL 0.2-1.0 [facility] Calcium [Mass/Vol] 8.7 mg/dL 8.5-10.1 [facility] Chloride [Moles/Vol] 103 mmol/L 98-107 [facility] CO2 [Moles/Vol] 26.0 mmol/L 21.0-32.0 [facility] Creatinine [Mass/Vol] 1.03 mg/dL High 0.55-1.02 [facility] GFR/1.73 sq M.predicted MDRD (S/P/Bld) [Vol rate/Area] mL/min/{1.73_m2} >=60 [facility] Glucose [Mass/Vol] 107 mg/dL High 74-106 [facility] Potassium [Moles/Vol] 3.7 mmol/L 3.5-5.1 [facility] Protein [Mass/Vol] 7.1 g/dL 6.4-8.2 [facility] Sodium [Moles/Vol] 137 mmol/L 136-145 [facility] Urea nitrogen [Mass/Vol] 10.0 mg/dL 7.0-18.0 [facility] Urea nitrogen/Creatinine [Mass ratio] 9.7 mg/mg [facility] Laboratory - Hematology and Cell countson 10-18-2023 Immature granulocytes/100 WBC (Bld) 0.2 % 0.0-0.5 [facility] Leukocytes [#/volume] correc kami for nucleated erythrocytes in Blood by Automated counon 10-18-2023 WBC corrected for nucl RBC Auto (Bld) [#/Vol] 8.7 10 3/uL 4.0-11.0 [facility] Lymphocytes Auto (Bld) [#/Vo l]on 10-18-2023 Lymphocytes (Bld) [#/Vol] 1.2 10 3/uL 1.2-3.8 [facility] Lymphocytes/100 WBC Auto (Bl d)on 10-18-2023 Lymphocytes/100 WBC (Bld) 13.5 % Low 20.5-60.0 [facility] MCH Auto (RBC) [Entitic mass ]on 10-18-2023 MCH (RBC) [Entitic mass] 32.3 pg 26.7-34.0 [facility] MCHC Auto (RBC) [Mass/Vol]on 10-18-2023 MCHC (RBC) [Mass/Vol] 33.9 g/dL 29.9-35.2 [facility] MCV Auto (RBC) [Entitic vol] on 10-18-2023 MCV (RBC) [Entitic vol] 95.6 fL 81.0-99.0 [facility] Monocytes Auto (Bld) [#/Vol] on 10-18-2023 Monocytes (Bld) [#/Vol] 0.9 10 3/uL High 0.3-0.8 [facility] Monocytes/100 WBC Auto (Bld) on 10-18-2023 Monocytes/100 WBC (Bld) 10.4 % 1.7-12.0 [facility] Neutrophils Auto (Bld) [#/Vo l]on 10-18-2023 Neutrophils (Bld) [#/Vol] 6.4 10 3/uL 1.4-6.5 [facility] Neutrophils/100 WBC Auto (Bl d)on 10-18-2023 Neutrophils/100 WBC (Bld) 73.3 % 43.0-75.0 [facility] No Panel Informationon 10-17 Troponin I High Sensitivity 6.4 pg/mL 4.0-51.3 [facility] Comment on above: CUT-OFF POINTS HAVE BEEN ESTABLISHED BASED ON THE FOURTHUNIVERSAL DEFINITION OF MYOCARDIAL INFARCTION. THE UPPERREFERENCE LIMIT (URL) OF TROPONIN, DEFINED THE 99THPERCENTILE OF cTnI DISTRIBUTION IN A REFERENCE POPULATION,HAS BEEN CONFIRMED THE DECISION THRESHOLD FOR MIDIAGNOSIS.99TH PERCENTILE = 51.4 PG/MLNOTE: HIGH-SENSITIVITY TROPONIN ASSAY IS NOT INTENDED TO BEUSED IN ISOLATION BUT SHOULD BE INTERPRETED IN CONJUNCTIONWITH OTHER DIAGNOSTIC AND CLINICAL INFORMATION. Eosinophils # (Auto) 0.2 10 3/uL 0.0-0.7 [facility] Immature Granulocyte # (Auto) 0.02 10 3/uL 0.00-0.03 [facility] Platelet mean volume Auto (B ld) [Entitic vol]on 10-18-2023 Platelet mean volume (Bld) [Entitic vol] 10.1 fL 9.5-13.5 [facility] Platelets Auto (Bld) [#/Vol] on 10-18-2023 Platelets (Bld) [#/Vol] 266 10 3/uL 150-450 [facility] RBC Auto (Bld) [#/Vol]on RBC (Bld) [#/Vol] 4.05 10 6/uL Low 4.20-5.40 [facility] Serum or plasma albumin/glob ulin mass ratioon 10-18-2023 Albumin/Globulin [Mass ratio] 1.1 {ratio} [facility] Serum or plasma anion gap de terminationon 10-18-2023 Anion gap [Moles/Vol] 11.7 mmol/L [facility] XR CHEST 2 Von 06-29-2022 XR CHEST [...] by: MAGDALENO CLIFFORD Date: 2022-06-29 16:42 Normal [facility] COVID + FLU Quick Testingon 06-16-2022 SARS-CoV-2 (COVID-19) RNA DINORA+probe Ql (Unsp spec) Negative [employer] Other COVID + FLU Quick Testing Negative [employer] Other [facility] echo transthoracicon [facility] echo transthoracic [facility] Safe[facility] Other E[facility] echo transthoracic [facility] Main [facility] Other E[facility] echo tran[facility]horacic [address] [facility] Other E[facility] echo [facility] [place] [id number] [facility] Other [facility] Echocardiogram [facility] Other [facility] Signed [employer] Other [facility] Patient: Elda Spencer MR#: [id number] [employer] Other [facility] [id number] [employer] Other [facility] : 1960 Acct:[id number] [employer] Other [facility] Age/Sex: 62 / F ADM Date: 05/01/22 [employer] Other [facility] Loc: Room: Type: [facility] [employer] Other [facility] Attending Dr: Sonny Rivas DO [employer] Other [facility] Ordering Provider: Sonny Rivas DO [facility] Other [facility] Date of Service: 05/01/22 [employer] Other [facility] ECH/ECH echo transthoracic: Chest pain, unspecified [employer] Other [facility] type;Hyperlipidemia;Shanel vated blood p [employer] Other [facility] Copies to: Sonny Rivas,DO [employer] Other [facility] Sheela Ovalle MD [facility] Other [facility] Weight: 180 lb Performed By: DEE Hill [facility] Other [facility] BSA: 1.8 m2 BP: 131/81 mmHg [facility] Other [facility] HR: 55 [facility] Other [facility] Reason For Study: Chest pain, unspecified type;Hyperlipidemia;Shanel vated blood p [facility] Other [facility] History: HLD, asthma, HTN, breast cancer [facility] Other [facility] Interpretation Summary [facility] Other [facility]hor[facility] Ejection Fraction = 55-60%. [facility] Other [facility] The left ventricular size, thickness and function are normal [facility] Other [facility] The left ventricular wall motion is normal. [facility] Other [facility] There is mild mitral regurgitation. [facility] Other [facility] There is mild tricuspid regurgitation. [facility] Other [facility] There is no comparison study available. [facility] Other [facility] echo transthoracic flow and Doppler was performed. The study was technically good in quality. [facility] Other [facility] Left Ventricle: The left ventricular size, thickness and function are [facility] Other [facility] echo transthoracic normal. Ejection Fraction = 55-60%. The left ventricular wall motion is [facility] Other [facility] normal. [facility] Other [facility] Left Atrium: The left atrium appears normal in size. [place] [employer] Other [facility] echo transthoracic Right Atrium: The right atrium appears normal in size. [facility] Other [facility] echo transthoracic Right Ventricle: The right ventricular size, thickness and function are [place] [employer] Other [facility] echo transthoracic Aortic Valve: The aortic valve is normal in structure and function. No [employer] Other [facility] echo transthoracic aortic regurgitation is present. [employer] Other [facility] echo transthoracic Mitral Valve: The mitral valve is normal in structure and function. There is [employer] Other [facility] echo transthoracic mild mitral regurgitation. [employer] Other [facility] echo transthoracic Tricuspid Valve: The tricuspid valve is normal in structure and function. [employer] Other [facility] echo transthoracic There is mild tricuspid regurgitation. Right ventricular systolic pressure is [employer] Other [facility] echo transthoracic Pulmonic Valve: The pulmonic valve is normal in structure and function. [employer] Other [facility] echo transthoracic Arteries: The aortic root is normal size. [employer] Other [facility] echo transthoracic Pericardium/Pleura: No pericardial effusion seen. There is no pleural [place] [employer] Other [facility] echo transthoracic effusion. [employer] Other [facility] echo transthoracic IVC/Hepatic Viens: The inferior vena cava is normal in size, with a normal [place] [employer] Other [facility] echo transthoracic collapsibility index. [facility] Safe[facility] Other [facility] echo transthoracic Measurements with Normals [place] [employer] Other [facility] echo transthoracic IVSd: 0.91 cm (0.7-1.1 cm)LVIDd: 4.9 cm (3.7-5.4 cm) [employer] Other [facility] echo transthoracic LVPWd: 1.0 cm (0.7-1.1 cm)LVIDs: 3.3 cm (2.3-3.6 cm) [facility] Other [facility] echo transthoracic LA dimension: 3.9 cm(2.3-4.0 cm)Ao root diam: 3.0 cm(2.0-3.6 cm) [facility] Other [facility] echo transthoracic Doppler with Normals [facility] Other [facility] echo transthoracic RVSP(TR): 27.4 mmHg (18-35mmHg) [facility] Other [facility] echo transthoracic MV E max ross: 106.0 cm/sec(0.8-1.3m/s) [facility] Other [facility] echo transthoracic MV A max ross: 91.3 cm/sec (0.0-0.0m/s) [facility] Other [facility] echo transthoracic MV E/A: 1.2 (<1.5) [facility] Other [facility] echo transthoracic MMode/2D Measurements Calculations [facility] Other [facility] echo transthoracic RVDd: 2.9 cm FS: 33.6 % Ao root area: LVOT diam: 2.0 cm [facility] Other [facility] echo transthoracic TAPSE: 2.6 cm EDV(Teich): 7.3 cm2 LVOT area: 3.0 cm2 [facility] Other [facility] echo transthoracic RV S Ross: 112.6 ml [facility] Other [facility] echo transthoracic 12.9 cm/sec ESV(Teich): [facility] Other [facility] echo transthoracic 42.6 ml [facility] Other [facility] echo transthoracic EF(Teich): 62.2 % [facility] Other [facility] echo transthoracic __ [facility] Other [facility] echo transthoracic LVLd ap4: 7.4 cm SV(MOD-sp4): LAV(MOD-sp4): LA A4 area: 18.2 cm2 [facility] Other [facility] echo transthoracic EDV(MOD-sp4): 47.4 ml 51.6 ml LA length (vol): [facility] Other [facility] echo transthoracic 68.9 ml 5.3 cm [facility] Other [facility] echo transthoracic LVLs ap4: 6.3 cm [facility] Other [facility] echo transthoracic ESV(MOD-sp4): [facility] Other [facility] echo transthoracic 21.5 ml [facility] Other [facility] echo transthoracic EF(MOD-sp4): 68.8 % [facility] Other [facility] echo transthoracic Doppler Measurements Calculations [facility] Other [facility] transthoracic MV dec time: MV max PG: E/E' lat: 10.9 MV dec slope: [facility] Other [facility] echo transthoracic 0.27 sec 82.0 mmHg E/E' med: 13.2 393.9 cm/sec2 [facility] Other [facility] echo transthoracic MR max ross: TV max PG: TR max ross: [facility] Other [facility] echo transthoracic 454.3 cm/sec 22.0 mmHg 236.8 cm/sec [facility] Other [facility] echo transthoracic MR max PG: TR max PG: [employer] Other [facility] echo transthoracic 83.9 mmHg 22.4 mmHg [facility] Other [facility] echo transthoracic RAP systole: [facility] Other [facility] echo transthoracic 5.0 mmHg [facility] Other [facility] echo transthoracic [facility] Other [facility] echo transthoracic [facility] Other [facility] echo transthoracic Transcribed By: [facility] Other [facility] echo transthoracic Performed At: 05/01/22 1339 [facility] Other [facility] echo transthoracic Signed By: Sheela Ovalle MD 05/01/22 1428 [facility] Other STR cardiac stress/cardiolon 05-01-2022 STR cardiac stress/cardiol Cardiac Stress Test [facility] Other STR cardiac stress/cardiol Loc: Room: Type: [facility] Other STR cardiac stress/cardiol Date of Service: 05/01/22 [facility] Other STR cardiac stress/cardiol STR/STR cardiac stress/cardiol: Chest pain, unspecified [facility] Other STR cardiac stress/cardiol REASON FOR THE STUDY: Chest pain. [facility] Other STR cardiac stress/cardiol REFERRING PHYSICIAN: Sonny Rivas DO [facility] Other STR cardiac stress/cardiol patient was able to exercise for a total of 5 minutes 55 seconds, achieving workload of 7 METS. [facility] Other STR cardiac stress/cardiol Maximum heart rate was 153 beats per minute. Maximum blood pressure was 182/80. No chest pain was [facility] Other STR cardiac stress/cardiol reported. Blood pressure and heart response to exercise was physiologic. Baseline ECG showed [facility] Other STR cardiac stress/cardiol normal sinus rhythm. No ST-T changes. Following exercise, nondiagnostic changes were seen. [facility] Other STR cardiac stress/cardiol CONCLUSION: [facility] Other STR cardiac stress/cardiol 1. Cardiolite exercise stress test with nondiagnostic ST-T changes for ischemia. [facility] Other STR cardiac stress/cardiol 2. No provoked chest pain or arrhythmia. [facility] Other STR cardiac stress/cardiol 3. Limited to fair exercise tolerance. [facility] Other STR cardiac stress/cardiol 4. Appropriate hemodynamic response to exercise. [facility] Other STR cardiac stress/cardiol 5. Normal heart rate recovery phase. [facility] Other STR cardiac stress/cardiol 6. Myocardial perfusion study will be dictated separately. [facility] Other STR cardiac stress/cardiol Transcribed By: MARIELY 05/01/22 1651 [facility] Other STR cardiac stress/cardiol Dictated By: Sheela Ovalle MD 05/01/22 1542 [facility] Other STR cardiac stress/cardiol Signed By: [facility] Other STR cardiac stress/cardiol 05/04/22 1239 [facility] Other Vital Signs Date Time Vital Sign Value Performing Clinician Facility 11-12-2023 09:33-0400 Diastolic blood pressure 55 mm[Hg] DO Sonny Rivas Work Phone: [facility] 11-12-2023 09:33-0400 Heart rate 67 /min DO Sonny Rivas Work Phone: [facility] 11-12-2023 09:33-0400 Respiratory rate 16 /min DO Sonny Rivas Work Phone: [facility] 11-12-2023 09:33-0400 SaO2% (BldA) [Mass fraction] 97 % DO Sonny Rivas Work Phone: [facility] 11-12-2023 09:33-0400 Systolic blood pressure 110 mm[Hg] DO Sonny Rivas Work Phone: [facility] 11-12-2023 07:12-0400 Body height 161.29 cm DO Sonny Rivas Work Phone: [facility] 11-12-2023 07:12-0400 Body weight 83.91 kg DO Sonny Rivas Work Phone: [facility] 01-07-2023 15:30-0400 Body height 160.02 cm Sonny Rivas Other [facility] Other 01-07-2023 15:30-0400 Body mass index (BMI) [Ratio] 33.83 kg/m2 Sonny Rivas Other [facility] Other 01-07-2023 15:30-0400 Body weight 86.64 kg Sonny Rivas Other [facility] Other 01-07-2023 15:30-0400 Diastolic blood pressure 70 mm[Hg] oSnny Rivas Other [facility] Other 01-07-2023 15:30-0400 Respiratory rate 16 /min Sonny Rivas Other [facility] Other 01-07-2023 15:30-0400 SaO2% (BldA) [Mass fraction] 94 % Sonny Dacostarupal Other [facility] Other 01-07-2023 15:30-0400 Systolic blood pressure 134 mm[Hg] Sonny Candida Other [facility] Other 04-02-2022 15:15-0500 Body height 160.02 cm Sonny Rivas Other [facility] Other 04-02-2022 15:15-0500 Body mass index (BMI) [Ratio] 34.01 kg/m2 Sonny Rivas Other [facility] Other 04-02-2022 15:15-0500 Body weight 87.09 kg Sonnyjami Dacostarupal Other [facility] Other 04-02-2022 15:15-0500 Diastolic blood pressure 80 mm[Hg] Sonny Rivas Other [facility] Other 04-02-2022 15:15-0500 Respiratory rate 16 /min Sonny Candida Other [facility] Other 04-02-2022 15:15-0500 SaO2% (BldA) [Mass fraction] 98 % Sonny Rivas Other [facility] Other 04-02-2022 15:15-0500 Systolic blood pressure 142 mm[Hg] Sonny Rivas Other [facility] Other 04-01-2021 15:45-0500 Body height 160.02 cm Sonny Rivas Other [facility] Other 04-01-2021 15:45-0500 Body mass index (BMI) [Ratio] 33.65 kg/m2 Sonny Rivas Other [facility] Other 04-01-2021 15:45-0500 Body weight 86.18 kg Sonny Rivas Other [facility] Other 04-01-2021 15:45-0500 Diastolic blood pressure 90 mm[Hg] Sonny Rivas Other [facility] Other 04-01-2021 15:45-0500 Respiratory rate 16 /min Sonny Rivas Other [facility] Other 04-01-2021 15:45-0500 SaO2% (BldA) [Mass fraction] 98 % Sonnyjami Dacostarupal Other [facility] Other 04-01-2021 15:45-0500 Systolic blood pressure 140 mm[Hg] Sonny Rivas Other [facility] Other Encounters Encounter Date Encounter Type Care Provider Facility Start: 03-09-2024 End: 03-09-2024 ambulatory Sonny Rivas Facility:[facility] Start: 11-12-2023 Non-patient / Non-visit DO Sonny Rivas Work Phone: [facility] Work Phone: Start: 11-12-2023 End: 11-12-2023 Admission to same day surgery center DO Sonny Rivas Work Phone: [facility] Work Phone: Start: 11-12-2023 End: 11-12-2023 ambulatory DO Sonny Rivas Work Phone: [facility] Work Phone: Start: 11-11-2023 Non-patient / Non-visit DO Sonny Praneethrupal Work Phone: [facility] Work Phone: Start: 10-18-2023 Non-patient / Non-visit DO Sonny Praneethrupal Work Phone: [facility] Work Phone: Start: 09-16-2023 End: 09-16-2023 ambulatory JUAN FRANCISCO OLIVEIRADinora Not Available Start: 01-07-2023 End: 01-07-2023 ambulatory Sonny Dacostarupal Other [facility] Other Start: 01-07-2023 Office outpatient visit 15 minutes Sonny Rivas [facility] Start: 12-31-2022 End: 12-31-2022 ambulatory Sonny Rivas Other [facility] Other Start: 12-31-2022 Telephone encounter Sonny Candida [facility] Start: 11-26-2022 End: 11-26-2022 ambulatory Sonny Dacostarupal Other [facility] Other Start: 11-26-2022 Telephone encounter Sonnyjami Rivas [facility] [place] Start: 09-07-2022 End: 09-07-2022 ambulatory Sonny Rivas Other [facility] Other Start: 09-07-2022 Telephone encounter Sonny Candida [facility] Start: 08-04-2022 End: 08-04-2022 ambulatory Sonny Rivas Other [facility] Other Start: 08-04-2022 Telephone encounter Sonnyjami Dacostarupal [facility] [place] Start: 07-22-2022 End: 07-22-2022 ambulatory Sonny Rivas Other [facility] Other Start: 07-22-2022 Telephone encounter Sonny Rivas [facility] [place] Start: 07-13-2022 End: 07-13-2022 ambulatory Sonny Rivas Other [facility] Other Start: 07-13-2022 Telephone encounter Sonny Rivas [facility] [place] Start: 07-02-2022 End: 07-02-2022 ambulatory Sonny Rivas Other [facility] Other Start: 07-02-2022 Telephone encounter Sonny Rivas [facility] [place] Start: 06-29-2022 End: 06-30-[address] SONNY RIVAS [place] [employer] Other Start: 06-29-2022 Telephone encounter Sonny Rivas [facility] [place] Start: 06-16-2022 End: 06-16-2022 ambulatory Sonny Rivas Other [facility] Other Start: 06-16-2022 Nursing evaluation o f patient and report Sonny Rivas [facility] Start: 06-16-2022 Telephone encounter Sonny Rivas [facility] [place] Start: 05-01-[address] Renny dorado [facility] Facility:90 Start: 04-02-2022 End: 04-02-2022 ambulatory Sonny Rivas Other [facility] Other Start: 04-02-2022 Office outpatient visit 25 minutes Sonny Rivas [facility] [place] Start: 02-20-2022 End: 02-20-2022 ambulatory Sonny Rivas Other [facility] Other Start: 02-20-2022 Telephone encounter Sonny Rivas [facility] Start: 12-15-2021 End: 12-15-2021 ambulatory Sonny Rivas Other [facility] Other Start: 12-15-2021 [address] Start: 10-31-2021 End: 10-31-2021 ambulatory Sonny Rivas Other [facility] Other Start: 10-31-2021 [address] [address] [facility] Start: 10-28-2021 End: 10-28-2021 ambulatory Sonny Rivas Other [facility] Other Start: 10-28-2021 [address] Start: 05-06-2021 End: 05-06-2021 ambulatory Sonny Rivas Other [facility] Other Start: 05-06-2021 Telephone encounter Sonny Rivas [facility] [employer] Start: 04-28-2021 End: 04-28-2021 ambulatory Sonny Rivas Other [facility] Other Start: 04-28-2021 Telephone encounter Sonny Rivas [facility] Start: 04-01-2021 End: 04-01-2021 ambulatory Sonny Rivas Other [facility] Other Start: 04-01-2021 Office outpatient visit 25 minutes Sonny Rivas [facility] Procedures Date Procedure Procedure Detail Performing Clinician Start: 11-12-2023 Screening colonoscopy D O Sonny Rivas Work Phone: Plan of Treatment Date Care Activity Detail Author Start: 11-12-2023 [facility] Patient Education Hemorrhoids (D C) Diverticulosis (DC) Colon Polypectomy (DC) Know your Meds [facility] Work Phone: Immunizations Immunization Date Immunization Notes Care Provider Fa cili 04-01-2021 influenza, injectable, quadrivalent, contains preservative Sonny Rivas Other [facility] Other 04-01-2021 influenza, injectable, quadrivalent, preservative free DO Sonny Rivas Work Phone: [facility] 07-02-2020 COVID-19 Vaccine Pfizer - Documentation Purposes Only Sonny Rivas Other [facility] 06-10-2020 COVID-19 Vaccine Pfizer - Documentation Purposes Only Sonny Rivas Other [facility] 01-26-2020 influenza, seasonal, injectable Sonny Rivas Other [facility] 03-06-2019 influenza, seasonal, injectable Sonny Rivas Other [facility] NEGATED: Highlighted row has not occurred!07-26-2018 influenza, seasonal, injectable Patient Objection Sonny Rivas Other [facility] Other Payers Date Payer Category Payer Self-pay [id number] 2021 Unknown [id number] 1961 Unknown [id number] 2.1 [id number] 1960 Unknown [id number] 2.16.84 [id number] 1960 Unknown [id number] 2.16. [id number] 1960 Unknown [id number] 2.16. [id number] 1960 Unknown [id number] 2.16.84 [id number] Unknown [id number] 2.16.8 [id number] Unknown [id number] 2.16.8 [id number] Social History Date Type Detail Facility Unknown if ever smoked [facility] Other Sex Assigned At Sex Assigned At Bir th [facility] Other Start: 11-12-2023 Tobacco smoking status NHIS Never smoked tobacco (finding) [facility] Start: 1960 Sex Assigned At Female F [facility] Goals Date Patient Goal Desired Activity /State Clinical Notes 12-04-2012 to 11-12-2023 Note Date & Type Note Facility 11-12-2023 Procedure note [facility] 01-07-2023 Evaluation note Encounter Date Diagnosis Assessment [...] positive, and negative effects reviewed. Medication e-scribed. [facility] Other 08-24-2023 Evaluation note* Encounter Date Diagnosis Assessment Notes Treatment Notes Treatment Clinical Notes Nov, Elevated blood pressure reading (ICD-10 - R03.0) [facility] Other 05-02-2023 Evaluation note* Encounter Date Diagnosis Assessment Notes Treatment Notes Treatment Clinical Notes August, Panic attacks (ICD-10 - F41.0) [facility] Other 04-19-2023 Evaluation note* Encounter Date Diagnosis Assessment Notes Treatment Notes Treatment Clinical Notes Jul, Panic attacks (ICD-10 - F41.0) Jul, Elevated blood pressure reading (ICD-10 - R03.0) [facility] Other 04-10-2023 Evaluation note* Encounter Date Diagnosis Assessment Notes Treatment Notes Treatment Clinical Notes Jul, Cough, unspecified type (ICD-10 - R05.9) [facility] Other 03-30-2023 Evaluation note* Encounter Date Diagnosis Assessment Notes Treatment Notes Treatment Clinical Notes Jun, Panic attacks (ICD-10 - F41.0) [facility] Other 03-14-2023 Evaluation note* Encounter Date Diagnosis Assessment Notes Treatment Notes Treatment Clinical Notes Jun, Cough (ICD-10 - R05.9) [facility] Other 01-27-2023 NoteProcedure/Quality: A two-dimensional transthoracic echocardiogram with [employer] Other 01-27-2023 NotePROCEDURE: The patient underwent Cardiolite exercise stress test with the Pardeep protocol. [facility] Other 01-27-2023 NoteProcedure/Quality: A two-dimensional transthoracic echocardiogram with [employer] Other 01-27-2023 NotePROCEDURE: The patient underwent Cardiolite exercise stress test with the Pardeep protocol. [facility] Other 12-29-2022 Evaluation note* Encounter Date Diagnosis [...] take as needed in the evening time. [facility] Other 11-18-2022 Evaluation note* Encounter Date Diagnosis Assessment Notes Treatment Notes Treatment Clinical Notes Feb, Hyperlipidemia (ICD-10 - E78.5) Feb, Hypothyroidism (ICD-10 - E03.9) Feb, Depression (ICD-10 - F32.9) [facility] Other 07-26-2022 Evaluation note* Encounter Date Diagnosis Assessment Notes Treatment Notes Treatment Clinical Notes Oct, GERD (gastroesophageal reflux disease) (ICD-10 - K21.9) [facility] Other 12-28-2021 Evaluation note* Encounter Date Diagnosis [...] and she is agreeable to a referral. [facility] Other 09-01-2013 History general Narrative - Reported* [...] Hospitalization History Cholecystectomy Hospitalization History Childbirth 1977 [facility] Other 09-01-2013 History general Narrative - Reported* [...] Hospitalization History Cholecystectomy Hospitalization History Childbirth 1977 [facility] Other Evaluation noteNo InformationNort [employer] Other Evaluation noteNo assessment information available [facility] Work Phone: History and physical note Author Linette Song [facility] November 12, 2023 8:46am Note Date/Time November 12, 2023 8:4 7am [facility] [address] [place] [address] Gastroenterology H&P Signed Patient: Elda Spencer MR#: [id number] : 1960 Acct:[id number] Age/Sex: 63 / F Adm Date: 4 Loc: Room: Type: [facility] Attending Dr: Linette Song MD Copies [...] is an appropriate candidate for the procedure. Imad Asaad, M.D. Documented By: Linette Song MD 11/12/23844 Signed By: <Electronically signed by Linette Song MD> 11/12/23845 [facility] Work Phone: Reason for visit NarrativePlastic Surgery Referral [facility] [employer] Other Reason for Referral Reason *FU 04/10 consult and treat Diagnosis 1 Leakage of breast im plant, initial encounter (T85.43XA) Referral Organization [facility] Referring Provider First Name Sonny Referring Provider Last Name Candida Referring Provider Specialty Family Prac faith Referred Organization Unknown Facility Referred Provider Bekah (refer)Celestine Referred Provider Specialty Plastic and Reconstructive Surgery Referral Priority Routine [facility] 07[facility]35[facility]16 AM >Received today and waiting for office notes to be locked before sending [facility] 04/02/2021 08:36:30 AM >Referral was fax Summary [...] pain & chest painClinical Acute IllnessWHITE BARBARAROBERT ACOSTAREDDING; SYMPTOMS STARTED LAST : (NEG AT-HOME COVID TEST) SOB, BAD COUGH, HOARSE, SINUS PRESSURE/CONGESTIONNo InformationRefillsclinicalrefillRefillsClinicalRefillsClinicalreview labs- hyperlipidemia management INFORMATION SOURCE (unrecogn ized section and content) DATE CREATED AUTHOR 07/08/2022 [facility] DATE CREATED AUTHOR AUTHOR'S ORGANIZ ATION 08/01/2022 [facility] DATE CREATED AUTHOR AUTHOR'S ORGANIZ ATION 09/18/2023 [facility] EPIC DATE CREATED AUTHOR AUTHOR'S ORGANIZ ATION 03/16/2024 [facility] y[facility] Care Teams (unrecognized sec tion and content) Team Status: Active Member Role Status Dates Sonny Rivas , Primary Care Provider Active Team Status: Active [...] THE PRIMARY CLINICAL RECORDS. [facility] Android App Review Source [facility]. provides no warranty or guarantee of the accuracy or completeness of information in this document.
[2024-11-01 09:16] LABS: Hematocrit 37.9 % (36.0-48.0); Hemoglobin 12.8 g/dL (12.0-16.0); Immature Granulocytes Abs Auto 0.00 10^3/uL (0.00-0.03); Immature Granulocytes Pct Auto 0.0 % (0.0-0.5); Lymphocytes Absolute Auto 1.8 10^3/uL (1.2-3.8); Mean Corpuscular HGB Conc 33.8 g/dL (29.9-35.2); Mean Corpuscular Hemoglobin 32.5 pg (26.7-34.0); Mean Corpuscular Volume 96.2 fL (81.0-99.0); Platelet Count 291 10^3/uL (150-450); Red Blood Count 3.94 10^6/uL (4.20-5.40); White Blood Count 4.8 10^3/uL (4.0-11.0)
[2024-11-01 10:22] LABS: Alanine Aminotransferase 33 U/L (14-59); Albumin Globulin Ratio 1.3; Albumin Level 4.0 g/dL (3.4-5.0); Alkaline Phosphatase 59 U/L (46-116); Anion Gap 13.7; Aspartate Amino Transferase 15 U/L (15-37); Blood Urea Nitrogen 19.0 mg/dL (7.0-18.0); Calcium 9.2 mg/dL (8.5-10.1); Carbon Dioxide 28.4 mmol/L (21.0-32.0); Chloride 105 mmol/L (98-107); Cholesterol 163 mg/dL (<=200); Estimated GFR (African America >60 (>=60 mL/min/1.73m^2); Estimated GFR (Non-African Ame >60 (>=60 mL/min/1.73m^2); Globulin 3.1 g/dL; Glucose 88 mg/dL (74-106); HDL Cholesterol 57 mg/dL (40-60); Potassium 4.1 mmol/L (3.5-5.1); Sodium 143 mmol/L (136-145); Thyroid Stimulating Hormone 1.093 uIU/mL (0.358-3.740); Total Protein 7.1 g/dL (6.4-8.2); Triglycerides 70 mg/dL (<=150); VLDL CHOLESTEROL 14.0 mg/dL
== END 2024-11-01 08:48 | disposition home or self-care (01) ==
PROVIDERS: PCP Family Medicine; Visit Provider Family Medicine
DX: E78.5 Hyperlipidemia, unspecified (principal); E55.9 Vitamin D deficiency, unspecified
CPT/HCPCS: 36415; 80053; 80061; 82306; 84439; 84443; 85025